=== PATIENT | male | born 1985 | race Caucasian/White ===

== ENCOUNTER → 2017-02-25 | Outpatient (REF) | payer BC ==
[2017-02-25 11:37] LABS: MEAN CORPUSCULAR HEMOGLOBIN 28.8 pg (27.0-33.0); MEAN CORPUSCULAR HGB CONC 34.1 g/dl (32.0-36.5); MEAN CORPUSCULAR VOLUME 84.5 fl (80.0-96.0); RED CELL DISTRIBUTION WIDTH 12.3 % (11.5-14.5); WHITE BLOOD COUNT 5.5 K/mm3 (4.0-10.0)
[2017-02-25 11:49] LABS: ALBUMIN 3.7 GM/DL (3.2-5.2); ALBUMIN/GLOBULIN RATIO 1.19 (1.00-1.93); ALKALINE PHOSPHATASE 118 U/L (45-117); ALT/SGPT 23 U/L (12-78); ANION GAP 6 MEQ/L (8-16); AST/SGOT 16 U/L (15-37); BILIRUBIN,TOTAL 0.5 MG/DL (0.2-1.0); BLOOD UREA NITROGEN 18 MG/DL (7-18); CALCIUM LEVEL 8.8 MG/DL (8.5-10.1); CARBON DIOXIDE LEVEL 25 MEQ/L (21-32); CHLORIDE LEVEL 108 MEQ/L (98-107); CREATININE FOR GFR 0.86 MG/DL (0.70-1.30); FREE T4 1.19 NG/DL (0.76-1.46); GLOMERULAR FILTRATION RATE > 60.0 (>60); GLUCOSE, FASTING 97 MG/DL (70-105); POTASSIUM SERUM 4.4 MEQ/L (3.5-5.1); SODIUM LEVEL 139 MEQ/L (136-145); TOTAL PROTEIN 6.8 GM/DL (6.4-8.2)
== END ==
LOC: M SFHCLERA 08:33
PROVIDERS: ATTEND Family Medicine
DX: R19.7 Diarrhea, unspecified (principal)

== ENCOUNTER 2019-04-17 08:58 | Inpatient (IN) | payer OTHER, BC ==
[~2019-04-17] VITALS: Ht 182.9 cm; Wt 88.6 kg
[2019-04-17] MEDS ORDERED: MULTIVITAMINS/MINERALS THERAP 1 TAB PO SCH (09:00)
[2019-04-17] MEDS ORDERED: FOLIC ACID 1 MG TAB PO SCH (09:00)
[2019-04-17] MEDS ORDERED: ADACEL/BOOSTRIX VACCINE (DIPHTH/PERTUSS/ACELL/TETANUS)0.5ML SYR (90715) IM ONE (09:30)
[2019-04-17] MEDS ORDERED: ONDANSETRON 4MG/2ML VIAL (J2405) IV ONE (09:30)
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
[2019-04-17] MEDS: MORPHINE 4 MG/ML 1ML VIAL/SYRINGE (J2270) IV PRN ×2 (09:59→11:28)
[2019-04-17 10:05] LABS: BASO % 0.1 % (0.0-1.0); EOS % 0.1 % (0.0-3.0); HEMATOCRIT 42.3 % (42.0-52.0); HEMOGLOBIN 14.4 g/dl (13.5-17.5); LYMPH # 0.9 10^3/uL (1.5-5.0); LYMPH % 6.4 % (24.0-44.0); MEAN CORPUSCULAR HEMOGLOBIN 27.9 pg (27.0-33.0); MONO # 0.6 10^3/uL (0.0-0.8); MONO % 3.8 % (0.0-5.0); NEUTROPHILS # 13.1 10^3/uL (1.5-8.5); NEUTROPHILS % 89.1 % (36.0-66.0); PLATELET COUNT, AUTOMATED 315 10^3/uL (150-450); RED BLOOD COUNT 5.16 10^6/uL (4.30-6.10); WHITE BLOOD COUNT 14.7 10^3/uL (4.0-10.0)
[2019-04-17] MEDS ORDERED: NS 1,000 ML IV ONE (10:15)
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
[2019-04-17 11:00] LABS: BLOOD UREA NITROGEN 8 MG/DL (7-18); CALCIUM LEVEL 8.3 MG/DL (8.5-10.1); CARBON DIOXIDE LEVEL 22 MEQ/L (21-32); CHLORIDE LEVEL 104 MEQ/L (98-107); CPK CREATINE PHOSPHOKINASE 195 U/L (39-308); CREATININE FOR GFR 0.82 MG/DL (0.70-1.30); ETHYL ALCOHOL (ETHANOL) 0.169 % (0.000-0.010); GLOMERULAR FILTRATION RATE > 60.0 (>60); GLUCOSE, FASTING 89 MG/DL (70-100); POTASSIUM SERUM 4.3 MEQ/L (3.5-5.1); SODIUM LEVEL 136 MEQ/L (136-145)
[2019-04-17] MEDS ORDERED: LORazepam 2 MG TAB PO PRN (12:00)
[2019-04-17] MEDS ORDERED: THIAMINE 100 MG TAB PO SCH (13:00)
[2019-04-17] MEDS ORDERED: FLEET ENEMA PR PRN (14:15)
[2019-04-17] MEDS ORDERED: ONDANSETRON 4MG/2ML VIAL (J2405) IM PRN (14:15)
[2019-04-17] MEDS ORDERED: ACETAMINOPHEN TAB 650MG DOSE (2X325MG) PO PRN (14:15)
[2019-04-17] MEDS: MORPHINE 4 MG/ML 1ML VIAL/SYRINGE (J2270) IM PRN (14:18)
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
[2019-04-17 15:47] VITALS: BP 133/76
[2019-04-17] MEDS: oxyCODONE 5MG TAB PO PRN (16:22)
[2019-04-17] MEDS: NS 1,000 ML IV SCH ×2 (16:38→21:10)
[2019-04-17 17:25] LABS: HEMATOCRIT 39.4 % (42.0-52.0); HEMOGLOBIN 13.7 g/dl (13.5-17.5); MEAN CORPUSCULAR HEMOGLOBIN 28.4 pg (27.0-33.0); MEAN CORPUSCULAR HGB CONC 34.8 g/dl (32.0-36.5); MEAN CORPUSCULAR VOLUME 81.7 fl (80.0-96.0); PLATELET COUNT, AUTOMATED 243 10^3/uL (150-450); RED BLOOD COUNT 4.82 10^6/uL (4.30-6.10)
[2019-04-17 17:41] LABS: INR 0.99; PROTHROMBIN TIME 12.8 SECONDS (11.8-14.0)
[2019-04-17 17:50] LABS: BLOOD UREA NITROGEN 8 MG/DL (7-18); CALCIUM LEVEL 8.1 MG/DL (8.5-10.1); CARBON DIOXIDE LEVEL 19 MEQ/L (21-32); CHLORIDE LEVEL 109 MEQ/L (98-107); CREATININE FOR GFR 0.76 MG/DL (0.70-1.30); GLOMERULAR FILTRATION RATE > 60.0 (>60); GLUCOSE, FASTING 97 MG/DL (70-100); POTASSIUM SERUM 4.6 MEQ/L (3.5-5.1); SODIUM LEVEL 138 MEQ/L (136-145)
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
[2019-04-17 22:00] VITALS: BP 134/81
[2019-04-18] MEDS: oxyCODONE 5MG TAB PO PRN ×2 (00:07→09:57)
[2019-04-18] MEDS: MORPHINE 4 MG/ML 1ML VIAL/SYRINGE (J2270) IM PRN ×2 (05:08→07:38)
[2019-04-18] MEDS: NS 1,000 ML IV SCH (05:08)
[2019-04-18 06:00] VITALS: BP 132/81
[2019-04-18 06:40] LABS: HEMATOCRIT 40.2 % (42.0-52.0); HEMOGLOBIN 13.7 g/dl (13.5-17.5); MEAN CORPUSCULAR HEMOGLOBIN 29.1 pg (27.0-33.0); MEAN CORPUSCULAR HGB CONC 34.1 g/dl (32.0-36.5); MEAN CORPUSCULAR VOLUME 85.4 fl (80.0-96.0); PLATELET COUNT, AUTOMATED 253 10^3/uL (150-450); RED BLOOD COUNT 4.71 10^6/uL (4.30-6.10); WHITE BLOOD COUNT 11.3 10^3/uL (4.0-10.0)
--- NOTE | 2019-04-18 06:40 | ECGEPIP ---
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
[2019-04-18] MEDS ORDERED: MORPHINE 4 MG/ML 1ML VIAL/SYRINGE (J2270) IV PRN (07:45)
[2019-04-18] MEDS ORDERED: PROPOFOL 200 MG/20 ML VIAL As Ordered ONE (11:41)
[2019-04-18] MEDS ORDERED: LIDOCAINE 2% INJ 100 MG/5 ML SDV (FOR ANES.) As Ordered ONE (11:42)
[2019-04-18] MEDS ORDERED: dexameTHASONE 4 MG/ML 1ML VIAL (J1100) As Ordered ONE (11:42)
[2019-04-18] MEDS ORDERED: ONDANSETRON 4MG/2ML VIAL (J2405) As Ordered ONE (11:42)
[2019-04-18] MEDS ORDERED: MIDAZOLAM INJ 2 MG/2 ML VIAL (J2250) As Ordered ONE (12:52)
[2019-04-18] MEDS ORDERED: fentaNYL 100 MCG/2 ML INJECTION (J3010) As Ordered ONE ×3 (12:52→15:57)
[2019-04-18] MEDS: MIDAZOLAM INJ 2 MG/2 ML VIAL (J2250) IV SCH ×2 (13:10→13:20)
[2019-04-18] MEDS: fentaNYL 100 MCG/2 ML INJECTION (J3010) IV SCH ×2 (13:10→13:20)
[2019-04-18] MEDS ORDERED: ROPIvacaine 0.5% 30 ML INJECTION (J2795 PER 1MG) ONE (14:36)
[2019-04-18] MEDS ORDERED: dexameTHASONE 10 MG/1 ML VIAL PRES.FREE (J1100) ONE (14:36)
[2019-04-18] MEDS ORDERED: LIDOCAINE 1% MDV 20ML VIAL ONE (14:36)
[2019-04-18] MEDS ORDERED: BUPIVACAINE/EPIN 0.25% 30 ML VIAL As Ordered ONE (15:21)
[2019-04-18] MEDS ORDERED: ceFAZolin 2 GM/D5W 50 ML IV BAG (J0690 PER 500MG) As Ordered ONE ×2 (16:00→17:03)
[2019-04-18] MEDS ORDERED: ROCURONIUM BROMIDE 50 MG/5 ML VIAL As Ordered ONE ×2 (16:21→16:22)
[2019-04-18] MEDS ORDERED: ACETAMINOPHEN 1000MG 100ML IV BTL (OFIRMEV) (J0131 PER 10MG) As Ordered ONE (17:08)
[2019-04-18] MEDS ORDERED: SUGAMMADEX SODIUM 500 MG/5 ML VIAL (BRIDION) As Ordered ONE (17:08)
[2019-04-18] MEDS ORDERED: KETOROLAC 60 MG/2 ML VIAL (J1885) As Ordered ONE (17:09)
[2019-04-18] MEDS ORDERED: LR 1,000 ML IV SCH (18:30)
[2019-04-18] MEDS ORDERED: MORPHINE 10 MG/ML 1ML VIAL (J2270) IV PRN (18:30)
[2019-04-18] MEDS ORDERED: fentaNYL 100 MCG/2 ML INJECTION (J3010) IV PRN (18:30)
[2019-04-18] MEDS ORDERED: MORPHINE 2 MG/ML 1ML SYRINGE (J2270) IV PRN (18:30)
[2019-04-18] MEDS ORDERED: ONDANSETRON 4MG/2ML VIAL (J2405) IV PRN (18:30)
[2019-04-18] MEDS ORDERED: oxyCODONE 5MG TAB PO PRN (18:30)
[2019-04-18 19:30] VITALS: BP 162/86
[2019-04-18 20:00] VITALS: BP 148/89
[2019-04-18 21:00] VITALS: BP 143/88
[2019-04-18 22:00] VITALS: BP 148/88
[2019-04-18 23:00] VITALS: BP 145/87
[2019-04-19] VITALS: BP 148/87
[2019-04-19] MEDS: ceFAZolin SOD 1 GM in D5W MINI-BAG PLUS 50 ML IV SCH ×2 (01:09→08:11)
[2019-04-19 06:00] VITALS: BP 141/74
[2019-04-19] MEDS ORDERED: OXYC-517 PO (06:35)
[2019-04-19] MEDS ORDERED: ceFAZolin SOD 1 GM in D5W MINI-BAG PLUS 50 ML IV ONE (12:00)
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
--- NOTE | 2019-04-19 18:45 | REP ---
Bilateral wrist views: Three views left two views right obtained portably in the OR. History: Open reduction internal fixation. Findings: A sequence of three last image hold fluoroscopically obtained spot radiographs of the forearm document a volar screw plate fixation device in the distal radius on one side and the distal radial diaphyseal screw plate fixation device on the other. No laterality markers are seen on the images. The overall fluoro time for both wrist fluoroscopy is 37 seconds. Electronically Signed by Demario Kohler MD 04/20/2019 09:08 A
== END 2019-04-19 12:40 | disposition home or self-care (01) | DRG 315 ==
LOC: EDBD 08:58 → M ED 08:58 → M ED INP 13:15 → M MS5PR 15:35
PROVIDERS: ADMIT Orthopaedic Surgery Hand Surgery; ATTEND Orthopaedic Surgery Hand Surgery
PROC: 0PSJ04Z Reposition Left Radius with Internal Fixation Device, Open Approach (ICD-10-PCS; principal; 2019-04-18 08:00)
PROC: 0PSH04Z Reposition Right Radius with Internal Fixation Device, Open Approach (ICD-10-PCS; 2019-04-18 08:00)
DX: S52.322A Displaced transverse fracture of shaft of left radius, initial encounter for closed fracture (principal); S52.531A Colles' fracture of right radius, initial encounter for closed fracture; F17.210 Nicotine dependence, cigarettes, uncomplicated; V48.5XXA Car driver injured in noncollision transport accident in traffic accident, initial encounter; F10.10 Alcohol abuse, uncomplicated; Y92.410 Unspecified street and highway as the place of occurrence of the external cause

== ENCOUNTER → 2019-07-19 | Outpatient (CLI) | payer BC ==
[~2019-07-19] MED LIST: OXYC-517 PO
== END ==
LOC: M OUTALCOH 08:25
PROVIDERS: ATTEND Psychiatry & Neurology Psychiatry
DX: Z03.89 Encounter for observation for other suspected diseases and conditions ruled out (principal)

== ENCOUNTER 2019-08-12 15:44 | Outpatient (RCR) | payer BC | END 2019-09-09 | LOC: M OUTALCOH 15:44 | PROVIDERS: ATTEND Psychiatry & Neurology Psychiatry | DX: Z03.89 Encounter for observation for other suspected diseases and conditions ruled out (principal); F17.200 Nicotine dependence, unspecified, uncomplicated ==

== ENCOUNTER 2020-02-19 00:10 | Emergency (ER) | payer BC ==
[~2020-02-19] VITALS: Ht 182.9 cm; Wt 103.0 kg
[2020-02-19] MEDS ORDERED: NALOXONE 2MG/2ML SYRINGE (J2310 PER 1MG) IV STA (00:22)
[2020-02-19 00:30] LABS: BASO # 0.1 10^3/uL (0.0-0.2); BASO % 0.7 % (0.0-1.0); EOS # 0.4 10^3/uL (0.0-0.5); EOS % 2.5 % (0.0-3.0); HEMATOCRIT 41.5 % (42.0-52.0); LYMPH # 5.8 10^3/uL (1.5-5.0); LYMPH % 41.8 % (24.0-44.0); MEAN CORPUSCULAR HEMOGLOBIN 28.3 pg (27.0-33.0); MEAN CORPUSCULAR HGB CONC 33.7 g/dl (32.0-36.5); MEAN CORPUSCULAR VOLUME 83.8 fl (80.0-96.0); MONO # 0.7 10^3/uL (0.0-0.8); MONO % 5.2 % (0.0-5.0); NEUTROPHILS # 6.8 10^3/uL (1.5-8.5); NEUTROPHILS % 49.1 % (36.0-66.0); PLATELET COUNT, AUTOMATED 295 10^3/uL (150-450); RED BLOOD COUNT 4.95 10^6/uL (4.30-6.10)
[2020-02-19 00:34] LABS: WHITE BLOOD COUNT 13.8 10^3/uL (4.0-10.0)
[2020-02-19 00:41] LABS: INR 1.02; PARTIAL THROMBOPLASTIN TIME 23.3 SECONDS (25.0-38.4); PROTHROMBIN TIME 13.1 SECONDS (11.8-14.0)
[2020-02-19] MEDS ORDERED: ceFAZolin SOD 1 GM in D5W MINI-BAG PLUS 50 ML IV ONE (00:45)
[2020-02-19] MEDS ORDERED: PROPOFOL 1,000 MG/100 ML VIAL As Ordered ONE ×2 (00:47→01:41)
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
[2020-02-19 00:57] LABS: BLOOD UREA NITROGEN 8 MG/DL (7-18); CALCIUM LEVEL 7.4 MG/DL (8.5-10.1); CARBON DIOXIDE LEVEL 20 MEQ/L (21-32); CHLORIDE LEVEL 105 MEQ/L (98-107); CREATININE FOR GFR 0.79 MG/DL (0.70-1.30); ETHYL ALCOHOL (ETHANOL) 0.284 % (0.000-0.010); GLOMERULAR FILTRATION RATE > 60.0 (>60); GLUCOSE, FASTING 126 MG/DL (70-100); POTASSIUM SERUM 3.2 MEQ/L (3.5-5.1); SODIUM LEVEL 137 MEQ/L (136-145)
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
[2020-02-19] MEDS ORDERED: SUCCINYLCHOLINE INJ 200 MG/10 ML VIAL (J0330) As Ordered ONE (01:04)
[2020-02-19] MEDS: propofoL 1,000 MG in IV 1 EA IV SCH ×2 (01:16→01:40)
[2020-02-19 01:44] VITALS: BP 120/59
[2020-02-19] MEDS ORDERED: SUCCINYLCHOLINE INJ 200 MG/10 ML VIAL (J0330) IV STA ×2 (02:13)
[2020-02-19] MEDS ORDERED: NS 1,000 ML IV ONE (02:15)
[2020-02-19] MEDS ORDERED: SUCCINYLCHOLINE INJ 200 MG/10 ML VIAL (J0330) IV ONE (02:15)
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
== END 2020-02-19 01:50 | disposition short-term general hospital (02) ==
LOC: EDBD 00:10 → M ED 00:10
DX: J96.90 Respiratory failure, unspecified, unspecified whether with hypoxia or hypercapnia (principal); S06.4X0A Epidural hemorrhage without loss of consciousness, initial encounter; S02.91XA Unspecified fracture of skull, initial encounter for closed fracture; S01.01XA Laceration without foreign body of scalp, initial encounter; Y04.8XXA Assault by other bodily force, initial encounter; Y92.89 Other specified places as the place of occurrence of the external cause
CPT/HCPCS: 12002; 70450; 71045; 72125; 80048; 85025; 85610; 85730; 96365; 96368; 96375; 99291; G0480; J0330; J0690

== ENCOUNTER 2020-02-23 08:48 | Inpatient (IN) | payer BC ==
[~2020-02-23] VITALS: Ht 182.9 cm; Wt 92.7 kg
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
[2020-02-23] MEDS ORDERED: traZODone 25MG PER 1/2 TABLET PO PRN (13:00)
[2020-02-23] MEDS ORDERED: oxyCODONE 5MG TAB PO PRN (13:00)
[2020-02-23] MEDS ORDERED: ONDANSETRON 4 MG TAB PO PRN (13:00)
[2020-02-23 13:10] VITALS: BP 143/82
[2020-02-23] MEDS ORDERED: OXYC-517 PO (13:50)
[2020-02-23] MEDS ORDERED: PROT40IN4 IV (13:50)
[2020-02-23] MEDS ORDERED: [UNRECOGNIZED DRUG - CODE] SC (13:50)
[2020-02-23] MEDS ORDERED: MIRA3350 PO (13:50)
[2020-02-23] MEDS ORDERED: BACIOIN5 TOP (13:50)
[2020-02-23] MEDS ORDERED: ACET-908 PO (13:50)
[2020-02-23] MEDS ORDERED: GNP8.6TA PO (13:50)
[2020-02-23] MEDS: ACETAMINOPHEN 500 MG TAB PO SCH ×2 (14:00→22:03)
[2020-02-23] MEDS: IPRATROPIUM 0.5MG/ALBUTEROL 2.5MG INH SOL UD 3ML (DUONEB) NEB SCH ×2 (15:17→19:38)
[2020-02-23] MEDS: PANTOPRAZOLE 40MG TAB (PROTONIX) PO SCH (17:11)
[2020-02-23] MEDS: guaiFENesin 200 MG TAB PO SCH ×2 (17:21→22:03)
[2020-02-23] MEDS: PROPRANOLOL 10 MG TAB PO SCH ×2 (17:21→22:03)
[2020-02-23 20:40] VITALS: BP 129/72
[2020-02-23] MEDS: DOCUSATE SODIUM 100 MG CAP PO SCH (21:00)
[2020-02-23] MEDS: SENNA 8.6 MG TAB (SENOKOT) PO SCH (21:00)
[2020-02-23] MEDS: HEPARIN SOD (PORCINE) 5000UNITS/ML VIAL (J1644 PER 1000UNITS) SC SCH (22:04)
[2020-02-24 06:00] VITALS: BP 132/72
[2020-02-24] MEDS: ACETAMINOPHEN 500 MG TAB PO SCH ×3 (06:31→22:00)
[2020-02-24] MEDS: PROPRANOLOL 10 MG TAB PO SCH ×4 (06:33→22:00)
[2020-02-24] MEDS: IPRATROPIUM 0.5MG/ALBUTEROL 2.5MG INH SOL UD 3ML (DUONEB) NEB SCH ×3 (07:14→19:26)
[2020-02-24 07:48] LABS: BASO % 0.3 % (0.0-1.0); EOS # 0.2 10^3/uL (0.0-0.5); EOS % 2.1 % (0.0-3.0); HEMATOCRIT 25.5 % (42.0-52.0); HEMOGLOBIN 8.6 g/dl (13.5-17.5); LYMPH # 1.1 10^3/uL (1.5-5.0); LYMPH % 12.3 % (24.0-44.0); MEAN CORPUSCULAR HEMOGLOBIN 28.7 pg (27.0-33.0); MEAN CORPUSCULAR HGB CONC 33.7 g/dl (32.0-36.5); MONO # 0.9 10^3/uL (0.0-0.8); MONO % 9.5 % (0.0-5.0); NEUTROPHILS # 6.6 10^3/uL (1.5-8.5); PLATELET COUNT, AUTOMATED 221 10^3/uL (150-450); WHITE BLOOD COUNT 9.1 10^3/uL (4.0-10.0)
[2020-02-24 08:11] LABS: ALBUMIN 2.4 GM/DL (3.2-5.2); ALT/SGPT 20 U/L (12-78); BILIRUBIN,TOTAL 0.5 MG/DL (0.2-1.0); BLOOD UREA NITROGEN 7 MG/DL (7-18); CALCIUM LEVEL 8.1 MG/DL (8.5-10.1); CARBON DIOXIDE LEVEL 26 MEQ/L (21-32); CHLORIDE LEVEL 106 MEQ/L (98-107); CREATININE FOR GFR 0.55 MG/DL (0.70-1.30); GLOMERULAR FILTRATION RATE > 60.0 (>60); GLUCOSE, FASTING 145 MG/DL (70-100); POTASSIUM SERUM 3.3 MEQ/L (3.5-5.1); SODIUM LEVEL 143 MEQ/L (136-145); TOTAL PROTEIN 5.3 GM/DL (6.4-8.2)
[2020-02-24] MEDS: guaiFENesin 200 MG TAB PO SCH ×3 (09:00→20:48)
[2020-02-24] MEDS: PANTOPRAZOLE 40MG TAB (PROTONIX) PO SCH (09:00)
[2020-02-24] MEDS: DOCUSATE SODIUM 100 MG CAP PO SCH ×2 (09:00→20:50)
[2020-02-24] MEDS ORDERED: POTASSIUM CHLORIDE 10 MEQ SR TABLET PO ONE (10:15)
[2020-02-24] MEDS: HEPARIN SOD (PORCINE) 5000UNITS/ML VIAL (J1644 PER 1000UNITS) SC SCH ×2 (10:25→20:47)
[2020-02-24 14:00] VITALS: BP 135/99
[2020-02-24] MEDS: BACITRACIN OINTMENT 30GM TUBE TOP SCH (14:51)
[2020-02-24 17:06] VITALS: BP 135/99
[2020-02-24 20:00] VITALS: BP 129/67
[2020-02-24] MEDS: SENNA 8.6 MG TAB (SENOKOT) PO SCH (20:49)
[2020-02-25 06:00] VITALS: BP 147/89
[2020-02-25] MEDS: ACETAMINOPHEN 500 MG TAB PO SCH ×3 (06:08→21:02)
[2020-02-25] MEDS: PROPRANOLOL 10 MG TAB PO SCH ×3 (06:08→21:04)
[2020-02-25 06:58] LABS: BASO % 0.4 % (0.0-1.0); EOS # 0.2 10^3/uL (0.0-0.5); EOS % 1.6 % (0.0-3.0); HEMATOCRIT 26.8 % (42.0-52.0); LYMPH # 1.5 10^3/uL (1.5-5.0); LYMPH % 15.1 % (24.0-44.0); MEAN CORPUSCULAR HEMOGLOBIN 28.8 pg (27.0-33.0); MEAN CORPUSCULAR HGB CONC 33.6 g/dl (32.0-36.5); MEAN CORPUSCULAR VOLUME 85.6 fl (80.0-96.0); MONO # 0.9 10^3/uL (0.0-0.8); MONO % 8.5 % (0.0-5.0); NEUTROPHILS # 7.4 10^3/uL (1.5-8.5); NEUTROPHILS % 72.2 % (36.0-66.0); PLATELET COUNT, AUTOMATED 260 10^3/uL (150-450); RED BLOOD COUNT 3.13 10^6/uL (4.30-6.10); WHITE BLOOD COUNT 10.2 10^3/uL (4.0-10.0)
[2020-02-25 07:16] LABS: BLOOD UREA NITROGEN 7 MG/DL (7-18); CARBON DIOXIDE LEVEL 26 MEQ/L (21-32); CHLORIDE LEVEL 106 MEQ/L (98-107); CREATININE FOR GFR 0.54 MG/DL (0.70-1.30); GLOMERULAR FILTRATION RATE > 60.0 (>60); GLUCOSE, FASTING 103 MG/DL (70-100); POTASSIUM SERUM 3.3 MEQ/L (3.5-5.1); SODIUM LEVEL 142 MEQ/L (136-145)
[2020-02-25] MEDS: PANTOPRAZOLE 40MG TAB (PROTONIX) PO SCH (08:26)
[2020-02-25] MEDS: HEPARIN SOD (PORCINE) 5000UNITS/ML VIAL (J1644 PER 1000UNITS) SC SCH ×2 (08:26→21:01)
[2020-02-25] MEDS: DOCUSATE SODIUM 100 MG CAP PO SCH ×2 (08:26→21:00)
[2020-02-25] MEDS: BACITRACIN OINTMENT 30GM TUBE TOP SCH (08:27)
[2020-02-25] MEDS: guaiFENesin 200 MG TAB PO SCH ×3 (08:27→21:02)
[2020-02-25] MEDS: IPRATROPIUM 0.5MG/ALBUTEROL 2.5MG INH SOL UD 3ML (DUONEB) NEB SCH ×3 (09:12→19:34)
[2020-02-25 14:00] VITALS: BP 132/67
[2020-02-25] MEDS ORDERED: POTASSIUM CHLORIDE 10% LIQ 20 MEQ/15 ML UDC PO ONE (17:00)
[2020-02-25 20:00] VITALS: BP 141/85
[2020-02-25] MEDS: SENNA 8.6 MG TAB (SENOKOT) PO SCH (21:00)
[2020-02-25] MEDS: CARBAMIDE PEROXIDE 6.5% OTIC SOLN 15ML AD SCH (21:01)
[2020-02-26 06:00] VITALS: BP 138/82
[2020-02-26] MEDS: PROPRANOLOL 10 MG TAB PO SCH ×3 (06:02→21:05)
[2020-02-26] MEDS: ACETAMINOPHEN 500 MG TAB PO SCH ×3 (06:02→21:04)
[2020-02-26] MEDS: DOCUSATE SODIUM 100 MG CAP PO SCH ×2 (07:34→21:00)
[2020-02-26] MEDS: guaiFENesin 200 MG TAB PO SCH ×3 (07:35→21:05)
[2020-02-26] MEDS: PANTOPRAZOLE 40MG TAB (PROTONIX) PO SCH (07:38)
[2020-02-26] MEDS: CARBAMIDE PEROXIDE 6.5% OTIC SOLN 15ML AD SCH ×3 (07:38→21:04)
[2020-02-26] MEDS: BACITRACIN OINTMENT 30GM TUBE TOP SCH (07:38)
[2020-02-26] MEDS: HEPARIN SOD (PORCINE) 5000UNITS/ML VIAL (J1644 PER 1000UNITS) SC SCH ×2 (07:38→21:04)
[2020-02-26] MEDS: IPRATROPIUM 0.5MG/ALBUTEROL 2.5MG INH SOL UD 3ML (DUONEB) NEB SCH ×3 (07:44→16:13)
[2020-02-26 14:00] VITALS: BP 140/86
[2020-02-26 19:52] VITALS: BP 154/81
[2020-02-26] MEDS: SENNA 8.6 MG TAB (SENOKOT) PO SCH (21:00)
[2020-02-27 05:27] VITALS: BP 146/92
[2020-02-27] MEDS: ACETAMINOPHEN 500 MG TAB PO SCH ×2 (05:28→15:24)
[2020-02-27] MEDS: PROPRANOLOL 10 MG TAB PO SCH ×2 (05:28→14:00)
[2020-02-27] MEDS: IPRATROPIUM 0.5MG/ALBUTEROL 2.5MG INH SOL UD 3ML (DUONEB) NEB SCH ×2 (08:30→13:09)
[2020-02-27 08:42] LABS: BASO % 0.4 % (0.0-1.0); EOS # 0.3 10^3/uL (0.0-0.5); EOS % 3.8 % (0.0-3.0); HEMATOCRIT 28.6 % (42.0-52.0); HEMOGLOBIN 9.6 g/dl (13.5-17.5); LYMPH # 1.4 10^3/uL (1.5-5.0); LYMPH % 17.3 % (24.0-44.0); MEAN CORPUSCULAR HGB CONC 33.6 g/dl (32.0-36.5); MEAN CORPUSCULAR VOLUME 86.4 fl (80.0-96.0); MONO # 0.8 10^3/uL (0.0-0.8); MONO % 9.4 % (0.0-5.0); NEUTROPHILS # 5.6 10^3/uL (1.5-8.5); NEUTROPHILS % 67.8 % (36.0-66.0); PLATELET COUNT, AUTOMATED 377 10^3/uL (150-450); RED BLOOD COUNT 3.31 10^6/uL (4.30-6.10); WHITE BLOOD COUNT 8.2 10^3/uL (4.0-10.0)
[2020-02-27] MEDS: HEPARIN SOD (PORCINE) 5000UNITS/ML VIAL (J1644 PER 1000UNITS) SC SCH (08:55)
[2020-02-27] MEDS: PANTOPRAZOLE 40MG TAB (PROTONIX) PO SCH (08:56)
[2020-02-27] MEDS: CARBAMIDE PEROXIDE 6.5% OTIC SOLN 15ML AD SCH ×2 (08:56→16:00)
[2020-02-27] MEDS: guaiFENesin 200 MG TAB PO SCH ×2 (08:56→15:24)
[2020-02-27] MEDS: DOCUSATE SODIUM 100 MG CAP PO SCH (08:57)
[2020-02-27] MEDS: BACITRACIN OINTMENT 30GM TUBE TOP SCH (08:57)
[2020-02-27 09:07] LABS: BLOOD UREA NITROGEN 7 MG/DL (7-18); CALCIUM LEVEL 7.9 MG/DL (8.5-10.1); CARBON DIOXIDE LEVEL 27 MEQ/L (21-32); CHLORIDE LEVEL 107 MEQ/L (98-107); CREATININE FOR GFR 0.77 MG/DL (0.70-1.30); GLOMERULAR FILTRATION RATE > 60.0 (>60); GLUCOSE, FASTING 127 MG/DL (70-100); POTASSIUM SERUM 3.8 MEQ/L (3.5-5.1); SODIUM LEVEL 141 MEQ/L (136-145)
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
[2020-02-27] MEDS ORDERED: BACI50OI TOP (12:24)
[2020-02-27] MEDS ORDERED: CARBOT AD (12:24)
[2020-02-27 14:00] VITALS: BP_SYST 130; BP_SYST 146; BP_DIAS 75; BP_DIAS 92
== END 2020-02-27 17:05 | disposition home or self-care (01) | DRG 862 ==
LOC: M PM&R 12:36
PROVIDERS: ADMIT Physical Medicine & Rehabilitation; ATTEND Physical Medicine & Rehabilitation
DX: S02.19XD Other fracture of base of skull, subsequent encounter for fracture with routine healing (principal); F10.10 Alcohol abuse, uncomplicated; Y09 Assault by unspecified means; Y92.9 Unspecified place or not applicable; R53.1 Weakness; F17.200 Nicotine dependence, unspecified, uncomplicated; R26.89 Other abnormalities of gait and mobility; G47.00 Insomnia, unspecified; Z79.899 Other long term (current) drug therapy

== ENCOUNTER 2020-03-07 09:30 | Outpatient (RCR) | payer BC ==
[~2020-03-07 09:30] MED LIST changes: +ACET-908 PO; +BACI50OI TOP; +BACIOIN5 TOP; +CARBOT AD; +GNP8.6TA PO; +MIRA3350 PO; +PROT40IN4 IV; +[UNRECOGNIZED DRUG - CODE] SC
== END 2020-03-09 ==
LOC: M PT 09:30
PROVIDERS: ATTEND Physical Medicine & Rehabilitation
DX: S06.2X9D Diffuse traumatic brain injury with loss of consciousness of unspecified duration, subsequent encounter (principal); W18.30XD Fall on same level, unspecified, subsequent encounter; Y92.9 Unspecified place or not applicable

== ENCOUNTER 2020-03-16 08:45 | Outpatient (RCR) | payer BC | END 2020-04-09 | LOC: M PT 08:45 | PROVIDERS: ATTEND Physical Medicine & Rehabilitation | DX: S06.2X9D Diffuse traumatic brain injury with loss of consciousness of unspecified duration, subsequent encounter (principal); X58.XXXD Exposure to other specified factors, subsequent encounter; Y92.9 Unspecified place or not applicable ==

== ENCOUNTER → 2020-05-09 | Outpatient (CLI) | payer BC ==
[2020-05-09 09:39] LABS: ALBUMIN 3.4 GM/DL (3.2-5.2); ALT/SGPT 34 U/L (12-78); BILIRUBIN,TOTAL 0.3 MG/DL (0.2-1.0); BLOOD UREA NITROGEN 18 MG/DL (7-18); CALCIUM LEVEL 8.9 MG/DL (8.5-10.1); CARBON DIOXIDE LEVEL 27 MEQ/L (21-32); CHLORIDE LEVEL 111 MEQ/L (98-107); CHOLESTEROL LEVEL 156 MG/DL (<200); CHOLESTEROL RISK RATIO 3.319 (<5); CREATININE FOR GFR 1.04 MG/DL (0.70-1.30); GLOMERULAR FILTRATION RATE > 60.0 (>60); GLUCOSE, FASTING 98 MG/DL (70-100); HDL CHOLESTEROL 47 MG/DL (>40); LDL CHOLESTEROL 92 MG/DL (<100); NON-HDL-C 109 MG/DL; POTASSIUM SERUM 4.6 MEQ/L (3.5-5.1); SODIUM LEVEL 142 MEQ/L (136-145); TOTAL PROTEIN 6.9 GM/DL (6.4-8.2); TRIGLYCERIDES LEVEL 84 MG/DL (<150)
[2020-05-09 09:56] LABS: HEMOGLOBIN A1c 5.1 %
[2020-05-09 13:18] LABS: HEPATITIS C VIRUS ABY INDEX 0.2 INDEX (<0.8); HIV 1&2 SCREEN CENTAUR NEGATIVE (NEGATIVE)
== END ==
LOC: M LAB 08:08
DX: E66.3 Overweight (principal)

== ENCOUNTER 2020-09-10 21:16 | Emergency (ER) | payer BC ==
[~2020-09-10] VITALS: Ht 182.9 cm; Wt 98.6 kg
[2020-09-10 21:18] VITALS: BP 132/75
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
--- OUTSIDE RECORDS SUMMARY | 2020-09-10 21:25 | CCD ---
Author Author [facility] Organization [facility] Address Unknown Phone Unavailable Care Team Providers Care Worm Packer Name Role Phone ValerieKenny kumar Unavailable PROBLEMS Type Condition ICD9-CM Code SDP89-VO Code Onset Dates Condition S tatus SNOMED Code Notes Problem Nondependent tobacco use disorder 305.1 Active 523146444 Problem Paroxysmal atrial fibrillation I48.0 Active 2 36758336 Problem Other obesity due to excess calories E66.09 Act palmer 261987533 Problem Body mass index [BMI] 31.0-31.9, adult Z68.31 A ctive 935834116 Problem History of alcohol abuse F10.11 Active 0123553 05 Problem Atrial fibrillation with RVR I48.91 Active 120 667332536518 Problem Current smoker F17.200 Active 81884300 ALLERGIES No Known Allergies ENCOUNTERS from 1987 to 2020-09-03 Encounter Location Date Provider Diagnosis [address] [address] Aug, Kenny Padilla IMMUNIZATIONS Vaccine Route Administration Date Status HPV9 0.5mL (Gardasil 9) IM Intramuscular Jun 21, 2020 Adminis tered SOCIAL HISTORY Tobacco Use: Social History Observation Description Date Details (start date - stop date) Current Smoker Sex Assigned At : Social History Observation Description Sex Assigned At Unknown Education: Question Answer Notes Level of Education: High School Language: Question Answer Notes Languages spoken: Vietnamese Mormonism: Question Answer Notes Mormonism 99 Other No scientologist beliefs that would impact health care. Tobacco Use: Question Answer Notes Are you a: current smoker Patient counseled on the dangers of tobacco use and urged to quit: 02/25/2017 How many cigarettes a day do you smoke? 21-30 Are you interested in quitting? Thinking about quitting Counseled the patient on smoking cessation, education provid ed 02/25/2017 REASON FOR REFERRAL No Information VITAL SIGNS No information MEDICATIONS No Information PROCEDURES No Information RESULTS No Results REASON FOR VISIT no show MEDICAL (GENERAL) HISTORY Type Description Date Surgical History No Surgical history information Hospitalization History left arm fx x2 Goals Section No Information Health Concerns No Information MEDICAL EQUIPMENT No Information MENTAL STATUS No Information FUNCTIONAL STATUS No Information ASSESSMENTS No Information PLAN OF TREATMENT No Information Insurance Providers Payer Name Payer Address Payer Phone Insured Name Patient Relati onship to Insured Coverage Start Date Coverage End Date [employer] OF [facility] [id number] [facility] [id number] [address] LUBIN self
--- OUTSIDE RECORDS SUMMARY | 2020-09-10 21:26 | CCD ---
Author Author [facility] Organization [facility] Address Unknown Phone Unavailable Care Team Providers Care Chamber Walker Name Role Phone Carla Redding MD Unavailable Unavailabl e MiladisCarla MD Unavailable Unavailabl e Miladis, Carla Armstrong MD Unavailable Unavailabl e MiladisCarla MD Unavailable Unavailabl e MiladisCarla MD Unavailable Unavailabl e MiladisCarla MD Unavailable Unavailabl e MiladisCarla MD Unavailable Unavailabl e MiladisCarla MD Unavailable Unavailabl e MiladisCarla MD Unavailable Unavailabl e MiladisCarla MD Unavailable Unavailabl e MiladisCarla MD Unavailable Unavailabl e MiladisCarla MD Unavailable Unavailabl e MiladisCarla MD Unavailable Unavailabl e MiladisCarla MD Unavailable Unavailabl e MiladisCarla MD Unavailable Unavailabl e Miladis, Aguirre Osmin Gene MD Unavailable Unavailabl e Miladis, Aguirre Osmin Gene MD Unavailable Unavailabl e Miladis, Aguirre Osmin Gene MD Unavailable Unavailabl e Miladis, Aguirre Osmin Gene MD Unavailable Unavailabl e Miladis, Aguirre Osmin Gene MD Unavailable Unavailabl e Miladis, Aguirre Osmin Gene MD Unavailable Unavailabl e Miladis, Aguirre Osmin Gene MD Unavailable Unavailabl e Miladis, Aguirre Osmin Gene MD Unavailable Unavailabl e Miladis, Aguirre Osmin Gene MD Unavailable Unavailabl e Miladis, Aguirre Osmin Gene MD Unavailable Unavailabl e Miladis, Aguirre Osmin Gene MD Unavailable Unavailabl e Miladis, Aguirre Osmin Gene MD Unavailable Unavailabl e Miladis, Aguirre Osmin Gene MD Unavailable Unavailabl e Miladis, Aguirre Osmin Gene MD Unavailable Unavailabl e ALIASES , DEFAULT / GENERIC / UNKNOWN PROVIDER * Unavailable Unavailable ALIASES , DEFAULT / GENERIC / UNKNOWN PROVIDER * Unavailable Unavailable ALIASES , DEFAULT / GENERIC / UNKNOWN PROVIDER * Unavailable Unavailable ALIASES , DEFAULT / GENERIC / UNKNOWN PROVIDER * Unavailable Unavailable ALIASES , DEFAULT / GENERIC / UNKNOWN PROVIDER * Unavailable Unavailable ALIASES , DEFAULT / GENERIC / UNKNOWN PROVIDER * Unavailable Unavailable ALIASES , DEFAULT / GENERIC / UNKNOWN PROVIDER * Unavailable Unavailable ALIASES , DEFAULT / GENERIC / UNKNOWN PROVIDER * Unavailable Unavailable ALIASES , DEFAULT / GENERIC / UNKNOWN PROVIDER * Unavailable Unavailable ALIASES , DEFAULT / GENERIC / UNKNOWN PROVIDER * Unavailable Unavailable ALIASES , DEFAULT / GENERIC / UNKNOWN PROVIDER * Unavailable Unavailable ALIASES , DEFAULT / GENERIC / UNKNOWN PROVIDER * Unavailable Unavailable ALIASES , DEFAULT / GENERIC / UNKNOWN PROVIDER * Unavailable Unavailable ALIASES , DEFAULT / GENERIC / UNKNOWN PROVIDER * Unavailable Unavailable ALIASES , DEFAULT / GENERIC / UNKNOWN PROVIDER * Unavailable Unavailable ALIASES , DEFAULT / GENERIC / UNKNOWN PROVIDER * Unavailable Unavailable ALIASES , DEFAULT / GENERIC / UNKNOWN PROVIDER * Unavailable Unavailable ALIASES , DEFAULT / GENERIC / UNKNOWN PROVIDER * Unavailable Unavailable ALIASES , DEFAULT / GENERIC / UNKNOWN PROVIDER * Unavailable Unavailable ALIASES , DEFAULT / GENERIC / UNKNOWN PROVIDER * Unavailable Unavailable ALIASES , DEFAULT / GENERIC / UNKNOWN PROVIDER * Unavailable Unavailable ALIASES , DEFAULT / GENERIC / UNKNOWN PROVIDER * Unavailable Unavailable ALIASES , DEFAULT / GENERIC / UNKNOWN PROVIDER * Unavailable Unavailable ALIASES , DEFAULT / GENERIC / UNKNOWN PROVIDER * Unavailable Unavailable ALIASES , DEFAULT / GENERIC / UNKNOWN PROVIDER * Unavailable Unavailable ALIASES , DEFAULT / GENERIC / UNKNOWN PROVIDER * Unavailable Unavailable ALIASES , DEFAULT / GENERIC / UNKNOWN PROVIDER * Unavailable Unavailable ALIASES , DEFAULT / GENERIC / UNKNOWN PROVIDER * Unavailable Unavailable ALIASES , DEFAULT / GENERIC / UNKNOWN PROVIDER * Unavailable Unavailable ALIASES , DEFAULT / GENERIC / UNKNOWN PROVIDER * Unavailable Unavailable ALIASES , DEFAULT / GENERIC / UNKNOWN PROVIDER * Unavailable Unavailable ALIASES , DEFAULT / GENERIC / UNKNOWN PROVIDER * Unavailable Unavailable ALIASES , DEFAULT / GENERIC / UNKNOWN PROVIDER * Unavailable Unavailable ALIASES , DEFAULT / GENERIC / UNKNOWN PROVIDER * Unavailable Unavailable ALIASES , DEFAULT / GENERIC / UNKNOWN PROVIDER * Unavailable Unavailable ALIASES , DEFAULT / GENERIC / UNKNOWN PROVIDER * Unavailable Unavailable ALIASES , DEFAULT / GENERIC / UNKNOWN PROVIDER * Unavailable Unavailable ALIASES , DEFAULT / GENERIC / UNKNOWN PROVIDER * Unavailable Unavailable ALIASES , DEFAULT / GENERIC / UNKNOWN PROVIDER * Unavailable Unavailable ALIASES , DEFAULT / GENERIC / UNKNOWN PROVIDER * Unavailable Unavailable ALIASES , DEFAULT / GENERIC / UNKNOWN PROVIDER * Unavailable Unavailable ALIASES , DEFAULT / GENERIC / UNKNOWN PROVIDER * Unavailable Unavailable ALIASES , DEFAULT / GENERIC / UNKNOWN PROVIDER * Unavailable Unavailable ALIASES , DEFAULT / GENERIC / UNKNOWN PROVIDER * Unavailable Unavailable ALIASES , DEFAULT / GENERIC / UNKNOWN PROVIDER * Unavailable Unavailable ALIASES , DEFAULT / GENERIC / UNKNOWN PROVIDER * Unavailable Unavailable Miguelina HAIDER Unavailable Unavailable Helen BUSH MD Unavailable Unavailable Helen BUSH MD Unavailable Unavailable Helen BUSH MD Unavailable Unavailable Helen BUSH MD Unavailable Unavailable Helen BUSH MD Unavailable Unavailable Helen BUSH MD Unavailable Unavailable Helen BUSH MD Unavailable Unavailable Helen BUSH MD Unavailable Unavailable Helen BUSH MD Unavailable Unavailable Helen BUSH MD Unavailable Unavailable Helen BUSH MD Unavailable Unavailable Helen BUSH MD Unavailable Unavailable Helen BUSH MD Unavailable Unavailable NON, PHYSICIAN STAFF Unavailable Unavailable Stuck, K Ni PA Unavailable Unavailable Stuck, K Ni PA Unavailable Unavailable Stuck, K Ni PA Unavailable Unavailable Stuck, K Ni PA Unavailable Unavailable Stuck, K Ni PA Unavailable Unavailable Stuck, K Ni PA Unavailable Unavailable Stuck, K Ni PA Unavailable Unavailable Stuck, K Ni PA Unavailable Unavailable Stuck, K Ni PA Unavailable Unavailable Stuck, K Ni PA Unavailable Unavailable Stuck, K Ni PA Unavailable Unavailable Stuck, K Ni PA Unavailable Unavailable Stuck, K Ni PA Unavailable Unavailable Stuck, K Ni PA Unavailable Unavailable Stuck, K Ni PA Unavailable Unavailable Stuck, K Ni PA Unavailable Unavailable Stuck, K Ni PA Unavailable Unavailable Stuck, K Ni PA Unavailable Unavailable Stuck, K Ni PA Unavailable Unavailable Stuck, K Ni PA Unavailable Unavailable Stuck, K Ni PA Unavailable Unavailable Stuck, K Ni PA Unavailable Unavailable Stuck, K Ni PA Unavailable Unavailable Stuck, K Ni PA Unavailable Unavailable Stuck, K Ni PA Unavailable Unavailable Stuck, K Ni PA Unavailable Unavailable Stuck, K Ni PA Unavailable Unavailable Stuck, K Ni PA Unavailable Unavailable Stuck, K Ni PA Unavailable Unavailable Stuck, K Ni PA Unavailable Unavailable Stuck, K Ni PA Unavailable Unavailable Stuck, K Ni PA Unavailable Unavailable Stuck, K Ni PA Unavailable Unavailable Stuck, K Ni PA Unavailable Unavailable Stuck, K Ni PA Unavailable Unavailable Stuck, K Ni PA Unavailable Unavailable Stuck, K Ni PA Unavailable Unavailable Stuck, K Ni PA Unavailable Unavailable Stuck, K Ni PA Unavailable Unavailable Stuck, K Ni PA Unavailable Unavailable Stuck, K Ni PA Unavailable Unavailable Stevens, M Demario PA Unavailable Unavailable Stevens, M Demario PA Unavailable Unavailable Stevens, M Demario PA Unavailable Unavailable Stevens, M Demario PA Unavailable Unavailable Stevens, M Demario PA Unavailable Unavailable Stevens, M Demario PA Unavailable Unavailable Stevens, M Demario PA Unavailable Unavailable Stevens, M Demario PA Unavailable Unavailable Stevens, M Demario PA Unavailable Unavailable Stevens, M Demario PA Unavailable Unavailable Stevens, M Demario PA Unavailable Unavailable Stevens, M Demario PA Unavailable Unavailable Stevens, M Demario PA Unavailable Unavailable Stevens, M Demario PA Unavailable Unavailable Stevens, M Demario PA Unavailable Unavailable Stevens, M Demario PA Unavailable Unavailable Stevens, M Demario PA Unavailable Unavailable Stevens, M Demario PA Unavailable Unavailable Stevens, M Demario PA Unavailable Unavailable Stevens, M Demario PA Unavailable Unavailable Stevens, M Demario PA Unavailable Unavailable Stevens, M Demario PA Unavailable Unavailable Stevens, M Demario PA Unavailable Unavailable Stevens, M Demario PA Unavailable Unavailable Stevens, M Demario PA Unavailable Unavailable Stevens, M Demario PA Unavailable Unavailable Stevens, M Demario PA Unavailable Unavailable Stevens, M Demario PA Unavailable Unavailable Stevens, M Demario PA Unavailable Unavailable Stevens, M Demario PA Unavailable Unavailable Stevens, M Demario PA Unavailable Unavailable Stevens, M Demairo PA Unavailable Unavailable Stevens, M Demario PA Unavailable Unavailable Rodney M Demario PA Unavailable Unavailable Stevens, M Demario PA Unavailable Unavailable Stevens, M Demario PA Unavailable Unavailable Stevens, M Demario PA Unavailable Unavailable Stevens, M Demario PA Unavailable Unavailable Stevens, M Demario PA Unavailable Unavailable Stevens, M Demario PA Unavailable Unavailable Stevens, M Demario PA Unavailable Unavailable Stevens, M Demario PA Unavailable Unavailable Stevens, M Demario PA Unavailable Unavailable Stevens, M Demario PA Unavailable Unavailable Stevens, M Demario PA Unavailable Unavailable Stevens, M Demario PA Unavailable Unavailable Rodney M Demario PA Unavailable Unavailable Jesús COLBY, R Enzo Unavailable Jesús COLBY, R Enzo Unavailable Jesús COLBY, R Enzo Unavailable Jesús COLBY, R Enzo Unavailable Jesús COLBY, R Enzo Unavailable Jesús COLBY, R Enzo Unavailable Jesús COLBY, R Enzo Unavailable Jesús COLBY, R Enzo Unavailable Jesús COLBY, R Enzo Unavailable Jesús COLBY, R Enzo Unavailable Jesús COLBY, R Enzo Unavailable Jesús COLBY, R Enzo Unavailable Jesús COLBY, R Enzo Unavailable Jesús COLBY, R Enzo Unavailable Jesús COLBY, R Enzo Unavailable Jesús COLBY, R Enzo Unavailable Jesús COLBY, R Enzo Unavailable Jesús COLBY, R Enzo Unavailable Jesús COLBY, R Enzo Unavailable Jesús COLBY, R Enzo Unavailable Jesús COLBY, R Enzo Unavailable Jesús COLBY, R Enzo Unavailable Jesús COLBY, R Enzo Unavailable Jesús COLBY, R Enzo Unavailable Jesús COLBY, R Enzo Unavailable Jesús COLBY, R Enzo Unavailable Jesús COLBY, R Enzo Unavailable Man, M Fatuma RN RESOURCE NURSE Unavailable Unavailable Man, M Fatuma RN RESOURCE NURSE Unavailable Unavailable Man, M Fatuma RN RESOURCE NURSE Unavailable Unavailable Man, M Fatuma RN RESOURCE NURSE Unavailable Unavailable Man, M Fatuma RN RESOURCE NURSE Unavailable Unavailable Man, M Fatuma RN RESOURCE NURSE Unavailable Unavailable Man, M Fatuma RN RESOURCE NURSE Unavailable Unavailable Man, M Fatuma RN RESOURCE NURSE Unavailable Unavailable Man, M Fatuma RN RESOURCE NURSE Unavailable Unavailable GALGANO, GIANNI COLBY Unavailable Unavailable GALGANO, GIANNI COLBY Unavailable Unavailable GALGANO, GIANNI COLBY Unavailable Unavailable GALGANO, GIANNI COLBY Unavailable Unavailable GALGANO, GIANNI COLBY Unavailable Unavailable GALGANO, GIANNI COLBY Unavailable Unavailable GALGANO, GIANNI COLBY Unavailable Unavailable GALGANO, GIANNI COLBY Unavailable Unavailable GALGANO, GIANNI COLBY Unavailable Unavailable GALGANO, GIANNI COLBY Unavailable Unavailable GALGANO, GIANNI COLBY Unavailable Unavailable GALGANO, GIANNI COLBY Unavailable Unavailable GALGANO, GIANNI COLBY Unavailable Unavailable GALGANO, GIANNI COLBY Unavailable Unavailable GALGANO, GIANNI COLBY Unavailable Unavailable GALGANO, GIANNI COLBY Unavailable Unavailable GALGANO, GIANNI COLBY Unavailable Unavailable GALGANO, GIANNI COLBY Unavailable Unavailable GALGANO, GIANNI COLBY Unavailable Unavailable GALGANO, GIANNI COLBY Unavailable Unavailable GALGANO, GIANNI COLBY Unavailable Unavailable GALGANO, GIANNI COLBY Unavailable Unavailable GALGANO, GIANNI COLBY Unavailable Unavailable GALGANO, GIANNI COLBY Unavailable Unavailable GALGANO, GIANNI COLBY Unavailable Unavailable GALGANO, GIANNI COLBY Unavailable Unavailable GALGANO, GIANNI COLBY Unavailable Unavailable GALGANO, GIANNI COLBY Unavailable Unavailable GALGANO, GIANNI COLBY Unavailable Unavailable ROYAL, Alisson JASON MD Unavailable Unavailable ROYAL, Alisson JASON MD Unavailable Unavailable ROYAL, Alisson JASON MD Unavailable Unavailable ROYAL, Alisson JASON MD Unavailable Unavailable ROYAL, Alisson JASON MD Unavailable Unavailable ROYAL, Alisson JASON MD Unavailable Unavailable ROYAL, Alisson JASON MD Unavailable Unavailable ROYAL, Alisson JASON MD Unavailable Unavailable ROYAL, Alisson JASON MD Unavailable Unavailable ROYAL, Alisson JASON MD Unavailable Unavailable ROYAL, Alisson JASON MD Unavailable Unavailable ROYAL, Alisson JASON MD Unavailable Unavailable ROYAL, Alisson JASON MD Unavailable Unavailable ROYAL, Alisson JASON MD Unavailable Unavailable ROYAL, Alisson JASON MD Unavailable Unavailable ROYAL, Alisson JASON MD Unavailable Unavailable ROYAL, Alisson JASON MD Unavailable Unavailable ROYAL, Alisson JASON MD Unavailable Unavailable ROYAL, Alisson JASON MD Unavailable Unavailable ROYAL, A SHERARD MD Unavailable Unavailable ROYAL, A SHERARD MD Unavailable Unavailable ROYAL, A SHERARD MD Unavailable Unavailable ROYAL, A SHERARD MD Unavailable Unavailable ROYAL, A SHERARD MD Unavailable Unavailable ROYAL, A SHERARD MD Unavailable Unavailable ROYAL, A SHERARD MD Unavailable Unavailable ORYAL, A SHERARD MD Unavailable Unavailable ROYAL, A SHERARD MD Unavailable Unavailable ROYAL, A SHERARD MD Unavailable Unavailable ROYAL, A SHERARD MD Unavailable Unavailable ROYAL, A SHERARD MD Unavailable Unavailable ROYAL, A SHERARD MD Unavailable Unavailable ROYAL, A SHERARD MD Unavailable Unavailable ROYAL, A SHERARD MD Unavailable Unavailable ROYAL, A SHERARD MD Unavailable Unavailable ROYAL, A SHERARD MD Unavailable Unavailable ROYAL, A SHERARD MD Unavailable Unavailable ROYAL, A SHERARD MD Unavailable Unavailable ROYAL, A SHERARD MD Unavailable Unavailable ROYAL, A SHERARD MD Unavailable Unavailable ROYAL, A SHERARD MD Unavailable Unavailable ROYAL, A SHERARD MD Unavailable Unavailable ROYAL, A SHERARD MD Unavailable Unavailable ROYAL, A SHERARD MD Unavailable Unavailable ROYAL, A SHERARD MD Unavailable Unavailable ROYAL, A SHERARD MD Unavailable Unavailable ROYAL, A SHERARD MD Unavailable Unavailable ROYAL, A SHERARD MD Unavailable Unavailable ROYAL, A SHERARD MD Unavailable Unavailable ROYAL, A SHERARD MD Unavailable Unavailable ROYAL, A SHERARD MD Unavailable Unavailable ROYAL, A SHERARD MD Unavailable Unavailable ROYAL, A SHERARD MD Unavailable Unavailable ROYAL, A SHERARD MD Unavailable Unavailable Otite, Marvin Fadar Unavailable Unavailable Otite, Marvin Fadar Unavailable Unavailable Re-disclosure Warning The records that you are about to access may contain information from federally-assisted alcohol or drug abuse programs. If such information is present, then the following federally mandated warning applies: This information has been disclosed to you from records protected by federal confidentiality rules (42 CFR part 2). The federal rules prohibit you from making any further disclosure of this information unless further disclosure is expressly permitted by the written consent of the person to whom it pertains or as otherwise permitted by 42 CFR part 2. A general authorization for the release of medical or other information is NOT sufficient for this purpose. The Federal rules restrict any use of the information to criminally investigate or prosecute any alcohol or drug abuse patient.The records that you are about to access may contain highly sensitive health information, the redisclosure of which is protected by Article 27-F of the [facility] Public Health law. If you continue you may have access to information: Regarding HIV / AIDS; Provided by facilities licensed or operated by the [facility] Office of Mental Health; or Provided by the [facility] Office for People With Developmental Disabilities. If such information is present, then the following [facility] mandated warning applies: This information has been disclosed to you from confidential records which are protected by state law. State law prohibits you from making any further disclosure of this information without the specific written consent of the person to whom it pertains, or as otherwise permitted by law. Any unauthorized further disclosure in violation of state law may result in a fine or skilled nursing sentence or both. A general authorization for the release of medical or other information is NOT sufficient authorization for further disc losure. Allergies and Adverse Reactions Type Description Substance Reaction Status Data Source(s ) Drug Class NO KNOWN ALLERGIES NO KNOWN ALLERGIES [facility] Family History Family Member Name Family Member Gender Family Member Status Date o f Status Description Data Source(s) Unknown Female Problem [facility] ([facility] Encounters Encounter Providers Location Date Indications Data Source(s ) Unknown [address] [facility] [address] 09/03/2020 12:00:00 AM EST eCW1 ([facility]) Outpatient [address] [facility] [id number] 06/21/2020 12:00:00 AM EST eCW1 ([facility]) Outpatient Attender: Demario Stevens PAConsultant: STAFF NON 05/28/2020 08:19:00 AM EDT - 05/28/2020 08:19:00 AM EDT [facility] Outpatient Attender: Demario Stevens PAConsultant: STAFF NON 05/18/2020 01:43:00 PM EDT - 05/18/2020 02:43:00 PM EDT [facility] Outpatient Attender: Demario Stevens PAConsultant: STAFF NON 05/16/2020 12:49:00 PM EDT - 05/16/2020 12:59:00 PM EDT [facility] Unknown [address] [facility] [id number] 05/11/2020 12:00:00 AM EDT eCW1 ([facility]) Outpatient Attender: Demario DOSHI 03/19 09:16:00 AM EDT - 03/19/2020 09:16:00 AM EDT [facility] Outpatient Attender: Enzo Espinosa MD 03/19/2020 12:00:00 AM [facility] Outpatient Attender: Demario DOSHI 03/12 09:05:00 AM EDT - 03/12/2020 09:05:00 AM T [facility] Outpatient Attender: Ni DOSHI 03/07/2020 12:00:00 AM [facility] Outpatient Attender: Enzo Espinosa MD 03/05/2020 12:00:00 AM [facility] Outpatient Attender: EREN PAIGE MD [id number] 02/28 12:00:00 AM EDT - 02/29/2020 04:35:09 PM EDT Dermatitis, unspecified [facility] Dermatitis, unspecified Outpatient Attender: MIKA HAIDERReferrer: EREN WRIGHT MD [id number] 02/29/2020 12:00:00 AM EDT Unspecified hearing loss, right ear [facility] Unspecified hearing loss, right ear Outpatient Referrer: Fatuma Man NP 02/29/2020 12:00:00 AM [facility] Outpatient Referrer: Fautma Man NP 02/22/2020 12:00:00 AM [facility] Outpatient Referrer: Fatuma Man NP 02/22/2020 12:00:00 AM [facility] Inpatient Attender: DEFAULT / GENE YELENA / UNKNOWN PROVIDER ALIASES Attender: GIANNI LOZOYA MDAttender: BUNNY BUSH MDAdmitter: Bethany OtiteReferrer: Bethany OtiteConsultant: Osmin Redding MD [id number] 02/19/2020 12:00:00 AM EDT - 02/23/2020 11:16:00 AM EDT Epidural hemorrhage with loss of consciousness of unspecified duration, initial encounter [facility] Epidural hemorrhage with loss of conscio usness of unspecified duration, initial encounter Patient discharged. Immunizations Vaccine Date Status Description Data Source(s) HPV9 06/21/2020 05:16:00 PM EST completed e CW1 ([facility]) HPV9 06/21/2020 05:16:00 PM EST completed e CW1 ([facility]) Medications Medication Brand Name Start Date Product Form Dose Route Admi nistrative Instructions Pharmacy Instructions Status Indications Reaction Description Data Source(s) POLYETHYLENE GLYCOL 3350 142 MG/ML Oral Solution Polyethylene Glycol 3350 17 GM Oral Packet (MIRALAX) Polyethylene Glycol 3350 17 GM Oral Packet (MIRALAX) 02/24/2020 12:00:00 AM EDT 17 g Oral active Take 1 packet by mouth daily for 3 daysPlease substitute bottle for packets, if packets are unavailable. [facility] bacitracin 500 UNIT/GM EX ointment 4505-7302-07 02/24/2020 12:00:00 A M EDT active Apply a thin l patrica to cranial incision and neck incision for 7 days [facility] bacitracin 500 UNIT/GM EX ointment 7608-5107-32 02/24/2020 12:00:00 A M EDT aborted Apply a thin layer t o cranial incision for 7 days [facility] pantoprazole 4 MG/ML Injectable Solution Pantoprazole Sodium 40 MG Intravenous Solution Reconstituted (PROTONIX) Pantoprazole Sodium 40 MG Intravenous So lution Reconstituted (PROTONIX) 02/24/2020 12:00:00 AM EDT 40 mg Intraven ous aborted Inject 40 mg into the vein daily [facility] sennosides, FPC 8.6 MG Oral Tablet Senna 8.6 MG Oral T ablet Senna 8.6 MG Oral Tablet 02/23/2020 12:00:00 AM EDT 2 {tbl} Oral aborted Take 2 tablets by mouth nightly as needed [facility] Acetaminophen 325 MG Oral Tablet Acetaminophen 325 MG Oral T ablet 02/23/2020 12:00:00 AM EDT 975 mg Oral active Take 3 tablets by mouth every 6 (six) hours as needed for Pain for up to 10 days [facility] Oxycodone Hydrochloride 5 MG Oral Tablet oxyCODONE HCl 5 MG Oral Tablet (ROXICODONE) oxyCODONE HCl 5 MG Oral Tablet (ROXICODONE) 02/23/2020 12:00:00 AM EDT 5 mg Oral active Take 1 t ablet by mouth every 4 (four) hours as needed for up to 3 days, Max Daily Dose: 30 mg [facility] Heparin Sodium (Porcine) 5000 UNIT/ML Injection Solution [id number] 02/23/2020 12:00:00 AM EDT 5000 U Subcutaneous aborted Inject 1 mL into the skin Two Times Daily for 10 days [facility] bacitracin ointment 7564-2520-41 02/22/2020 02:30:00 PM EDT Topical active Topical, Daily Farshad darjerry, First dose (after last modification) on Thu02/22/20 at 1430, For 9 doses
Apply to a thin layer to cranial incision and neck incision daily
[facility] Medication administered onsite Metronidazole 5 MG/ML Injectable Solution metroNIDAZOL E (FLAGYL) IVPB 500 mg metroNIDAZOLE (FLAGYL) IVPB 500 mg 02/22/2020 12:00:00 PM EDT 50 0 mg Intravenous completed 500 mg, Intra venous, Administer over 60 Minutes, Every 6 hours, First dose (after last modification) on Thu02/22/20 at 1200, For 3 doses [facility] Medication administered onsite bacitracin ointment 8930-5470-56 02/22/2020 09:00:00 AM EDT Topical aborted Topical, Daily Farshad sonal, First dose on Thu02/22/20 at 0900, For 10 doses
Apply to a thin layer to cranial incision and neck incision daily
[facility] Medication administered onsite Metronidazole 5 MG/ML Injectable Solution metroNIDAZOL E (FLAGYL) IVPB 500 mg metroNIDAZOLE (FLAGYL) IVPB 500 mg 02/21/2020 04:00:00 PM EDT 50 0 mg Intravenous aborted 500 mg, Intra venous, Administer over 60 Minutes, Every 6 hours, First dose (after last modification) on Thu02/21/20 at 1600, For 14 doses [facility] Medication administered onsite Acetaminophen 10 MG/ML Injectable Soluti on acetaminophen (OFIRMEV) infusion 1,000 mg acetaminophen (OFIRMEV) infusion 1,000 mg 02/21/2020 03:00:00 PM EDT 1000 mg Intravenous completed 1,000 mg , Intravenous, Administer over 15 Minutes, Once, Thu02/21/20 at 1500, For 1 dose
Maximum dose 3 gm daily from all sources
[facility] Medication administered onsite NaCl infusion 0.9 % [id number] 02/21/2020 12:15:00 PM EDT Intravenous aborted at 100 mL/hr, Intrav enous, Continuous, Starting Thu02/21/20 at 1215, For 30 days [facility] Medication administered onsite pantoprazole 4 MG/ML Injectable Solution pantoprazole (PROTONIX) injection 40 mg pantoprazole (PROTONIX) injection 40 mg 02/21/2020 12:15:00 PM EDT 40 mg Intravenous active 40 mg, Intrav enous, Daily Standard, First dose on Thu02/21/20 at 1215, For 30 days [facility] Medication administered onsite ondansetron (ZOFRAN) injection 4 mg [id number] 02/21/2020 10:51:5 3 AM EDT 4 mg Intravenous active 4 mg, In travenous, Every 8 hours PRN, Nausea, Vomiting, Starting Thu02/21/20 at 1051, For 30 days [facility] Medication administered onsite POLYETHYLENE GLYCOL 3350 142 MG/ML Oral Solution polyethylene glycol (MIRALAX) packet 17 g polyethylene glycol (MIRALAX) packet 17 g 02/21/2020 0 9:00:00 AM EDT 17 g Oral active 17 g, Or al, Daily Standard, First dose on Thu02/21/20 at 0900, For 30 days
Mix in 8 ounces of water, juice or milk. Avoid use in patients who require thickened liquids due to potential increased risk for aspiration.
[facility] Medication administered onsite Magnesium Hydroxide 80 MG/ML Oral Suspen bry magnesium hydroxide (MILK OF MAGNESIA) 400 MG/5ML suspension 45 mL magnesium hydroxide (MILK OF MAGNESIA) 4 00 MG/5ML suspension 45 mL 02/20/2020 10:00:00 PM EDT 45 mL Oral active 45 mL,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 rce(s) Supporting Document(s) Osmolality of Serum or Plasma 285 mosm/kg 285-295 [facility] ID Date Data Source [id number] 02/20/2020 05:00:39 AM EDT [facility] Name Value Range Interpretation Code Description Data Gisela rce(s) Supporting Document(s) Bicarbonate [Moles/volume] in Serum 22 mmol/L 22-29 [facility] Chloride [Moles/volume] in Serum or Plasma 105 mmol/L 98-107 [facility] Creatinine [Mass/volume] in Serum or Plasma 0.66 mg/dL 0.70-1.20 L [facility] Glucose [Mass/volume] in Serum or Plasma 105 mg/dL 70-140 [facility] Potassium [Moles/volume] in Serum or Plasma 4.5 mmol/L 3.4-5.1 [facility] Sodium [Moles/volume] in Serum or Plasma 134 mmol/L 136-145 L [facility] Urea nitrogen [Mass/volume] in Serum or Plasma 9 mg/dL 6-20 [facility] Anion gap 3 in Serum or Plasma 8 mmol/L 8-15 [facility] Osmolality of Serum or Plasma by calculation 278 mosm/kg 275-300 [facility] Creatinine/Urea nitrogen [Mass Ratio] in Serum or Plasma 13 [facility] Calcium [Mass/volume] in Serum or Plasma 7.4 mg/dL 8.6-10.0 L [facility] Glomerular filtration rate/1.73 sq M pre dicted among non-blacks [Volume Rate/Area] in Serum or Plasma by Creatinine-based formula (MDRD) >6 0 [facility] Glomerular filtration rate/1.73 sq M pre dicted among blacks [Volume Rate/Area] in Serum or Plasma by Creatinine-based formula (MDRD) >60 [facility] ID Date Data Source [id number] 02/20/2020 05:00:39 AM EDT [facility] Name Value Range Interpretation Code Description Data Gisela rce(s) Supporting Document(s) Magnesium [Mass/volume] in Serum or Plasma 2.4 mg/dL 1.6-2.6 [facility] ID Date Data Source [id number] 02/20/2020 05:00:39 AM EDT [facility] Name Value Range Interpretation Code Description Data Gisela rce(s) Supporting Document(s) Phosphate [Mass/volume] in Serum or Plasma 1.9 mg/dL 2.5-4.5 L [facility] ID Date Data Source [id number] 02/19/2020 04:48:44 PM EDT [facility] XR CHEST FRONTAL ONLY [id number] RESULTI nterpreted by:CARRIE BermudezPROCEDURE INFORMATION: Exam: XR Chest, 1 View Exam date and time: 02/19/2020 4:44 PM Age: 34 years old Clinical indication: Epidural hemorrhage with loss of consciousness of unspecified duration, initial encounter; Other: Ett retracted. Check position TECHNIQUE: Imaging protocol: XR of the chest Views: 1 view. COMPARISON: DX XR CHEST FRONTAL ONLY [id number] PORTABLE 02/19/2020 8:51 AM FINDINGS: Tubes, catheters and devices: ET tube terminates approximately 3.5 cm above the adrienne. Lungs: Interval decrease in size of the right lung base opacity. Pleural space: Suspect small right pleural effusion. No pneumothorax. Heart/Mediastinum: Unchanged. Bones/joints: Unremarkable. IMPRESSION: 1. ET tube terminates approximately 3.5 cm above the adrienne. 2. Interval decrease in size of the right lung base opacity. THIS DOCUMENT HAS BEEN ELECTRONICALLY SIGNED BY SHU COLBY MDThis document has been electronically signed by CARRIE Whitfield on 02/19/2020 4:48 PM Name Value Range Interpretation Code Description Data Gisela rce(s) Supporting Document(s) ID Date Data Source [id number] 02/19/2020 02:45:[address] [facility]AST [id number] RESU LTInterpreted by:Magdy Feliciano MDHISTORY: Status post craniotomy for hematoma evacuation.COMPARISON: NoneTECHNIQUE: Noncontrast CT head. Automated dose-lowering techniques and/or adjustment according to patient size were utilized for this exam.FINDINGS:Right subfrontal parietal craniotomy and overlying scalp postsurgical changes are noted. There is minimal residual subdural collection containing air-fluid over the right frontotemporal region measuring up to 4.5 mm in the widest transverse dimension. There is some minimal mass effect on the underlying brain. The ventricles remain midline and normal size. A small acute subdural hematoma is noted over the left frontal region measuring approximately 2.7 mm in the widest transverse dimension. Otherwise no evidence of acute intracranial bleeding. The basal cisterns remain patent.IMPRESSION:Status post right frontoparietal craniotomy with the small residual subdural air fluid collection. Small left-chetan ed subdural hematoma measuring up to 2.7 mm in the widest transverse dimension. No evidence of midline shift.This document has been electronically signed by Magdy Feliciano MD on 02/19/2020 2:43 PM Name Value Range Interpretation Code Description Data Gisela rce(s) Supporting Document(s) ID Date Data Source [id number] 02/19/2020 01:16:22 PM EDT [facility] Name Value Range Interpretation Code Description Data [facility] rce(s) Supporting Document(s) Leukocytes [#/volume] in Blood by Automated count 15.3 10*3/uL 4-10 H [facility] Erythrocytes [#/volume] in Blood by Automated count 2.84 10*6/uL 4.6- 6.1 L [facility] Hemoglobin [Mass/volume] in Blood 8.2 g/dL 13.5-18 L [facility] Hematocrit [Volume Fraction] of Blood by Automated count 23.9 % 4 1-53 L [facility] Erythrocyte mean corpuscular volume [Entitic volume] by Auto mated count 84.1 fL 80-96 [facility] Erythrocyte mean corpuscular hemoglobin [Entitic mass] by Automated count 28.8 pg 27-33 [facility] Erythrocyte mean corpuscular hemoglobin concentration [Mass/volume] by Automated count 34.2 g/dL 32.0-36.0 [facility] al Erythrocyte distribution width [Ratio] by Automated count 12.9 % 11.5-14.5 [facility] Platelets [#/volume] in Blood by Automated count 217 10*3/uL 150-400 [facility] Differential cell count method - Blood [facility] Neutrophils/100 leukocytes in Blood by Automated count 87 % [facility] Lymphocytes/100 leukocytes in Blood by Automated count 6 % [facility] Monocytes/100 leukocytes in Blood by Automated count 7 % [facility] Eosinophils/100 leukocytes in Blood by Automated count 0 % [facility] Basophils/100 leukocytes in Blood by Automated count 0 % [facility] Neutrophils [#/volume] in Blood by Automated count 13.21 10*3/uL 1.8- 7.0 H [facility] Lymphocytes [#/volume] in Blood by Automated count 0.96 10*3/uL 1.2-4 .0 L [facility] Monocytes [#/volume] in Blood by Automated count 1.08 10*3/uL 0-0.8 H [facility] Eosinophils [#/volume] in Blood by Automated count 0.00 10*3/uL 0-0.5 [facility] Basophils [#/volume] in Blood by Automated count 0.02 10*3/uL 0-0.2 [facility] Nucleated erythrocytes/100 leukocytes [Ratio] in Blood by Automated count 0 /100{WBCs} 0-0 [facility] ID Date Data Source [id number] 02/19/2020 12:44:14 PM EDT [facility] Name Value Range Interpretation Code Description Data Gisela rce(s) Supporting Document(s) History and Physical [facility] TMJOBb4xUzBKHpFs56/MVDwlESCyh3GoUUocEKn5FZgrRPZxU5YiWQD3mC0pOFM3WZnETjDvBqMyCjGw [facility] [file] ArbpDx9Ui8th5vqazG0+5OEeL9QCbHXwg7qqgP4D1IRbP9m6cuPWasYR7ZoE0U/Creosoting Engineer+/A4NBlDDNZ8zAW Ls1bOfpqlK/InGYUB2eU1Gp9O1uAlkcb7mSbRSSg3069j5ikAVuMK+5PX2xpgYeaVd4zrEalexeAqYWF olcT1sIP1bHiz1oR00rmUFPT509FKsun/WL03IU7Hy RrKOpfAdyLOj+H0xGQFaW28hOZ8rwOtz0ZzyWvP1z0oErTkJQEaDDl+o5/QIghP5EnJAzS6POgG2xpfK xbrQxCRfYRenL5soSCHnVIg7PLopadc5lYFBx8/wSl+9ZsQhI5W9hMeFRt4rPwObF5kwi6OXCV7EMwkO +A+9L0HJ9lNNOVaEIxVrK6ZzYYBfJ3DVNrD2HU6AcV LxSU5iVgjj4Q+1w4sX2J/CKzz2FE3+S9zeKMhluT218wzkOqJmY5w5bz/[place]/R4qWV7Tz9w0a8hyVNQix [file] AgICAgICAgICAgICAgICAgICAgICAgICAgICAgICAgICAgICAgICAgICAgICAgICAgICAgICAgICAgIC AgICAgICAgICAgICAgICAgICANCiAgICAgICAgICAg ICAgICAgICAgICAgICAgICAgICAgICAgICAgICAgICAgICAgICAgICAgICAgICAgICAgICAgICAgICAg ICAgICAgICAgICAgICAgICAgICAgICAgICAgICANCiAgICAgICAgICAgICAgICAgICAgICAgICAgICAg ICAgICAgICAgICAgICAgICAgICAgICAgICAgICAgIC AgICAgICAgICAgICAgICAgICAgICAgICAgICAgICAgICAgICAgICANCiAgICAgICAgICAgICAgICAgIC AgICAgICAgICAgICAgICAgICAgICAgICAgICAgICAgICAgICAgICAgICAgICAgICAgICAgICAgICAgIC AgICAgICAgICAgICAgICAgICAgICANCiAgICAgICAg ICAgICAgICAgICAgICAgICAgICAgICAgICAgICAgICAgICAgICAgICAgICAgICAgICAgICAgICAgICAg ICAgICAgICAgICAgICAgICAgICAgICAgICAgICAgICANCiAgICAgICAgICAgICAgICAgICAgICAgICAg ICAgICAgICAgICAgICAgICAgICAgICAgICAgICAgIC AgICAgICAgICAgICAgICAgICAgICAgICAgICAgICAgICAgICAgICAgICANCiAgICAgICAgICAgICAgIC AgICAgICAgICAgICAgICAgICAgICAgICAgICAgICAgICAgICAgICAgICAgICAgICAgICAgICAgICAgIC AgICAgICAgICAgICAgICAgICAgICAgICANCiAgICAg ICAgICAgICAgICAgICAgICAgICAgICAgICAgICAgICAgICAgICAgICAgICAgICAgICAgICAgICAgICAg ICAgICAgICAgICAgICAgICAgICAgICAgICAgICAgICAgICANCiAgICAgICAgICAgICAgICAgICAgICAg ICAgICAgICAgICAgICAgICAgICAgICAgICAgICAgIC AgICAgICAgICAgICAgICAgICAgICAgICAgICAgICAgICAgICAgICAgICAgICANCiAgICAgICAgICAgIC AgICAgICAgICAgICAgICAgICAgICAgICAgICAgICAgICAgICAgICAgICAgICAgICAgICAgICAgICAgIC AgICAgICAgICAgICAgICAgICAgICAgICAgICANCjw/ lVEiG2rioFNvliN4P6puVh0AQn6ZGS9yp3LrBPYcDUqardTzApiZCzIwQQDlApnCAex4UQluQN1NiELw Z5PtY5BuNWgcOE0IRNKgECPtjVRxPBWcWKQrLmB3HZUkDEsxFI0HxGJsGGtzZCRnHFKsTqJzWKIbZIBt FVKvYFNmLBRTYV2AGiIaI7GtoF48AZXKMe1+DQplbm DvSnzMVfTlRTWfa7AgTTz5NK7XLKOdMfjnc5QnLvFtNUNCPAslJD4PZIX5MJW8LPXrFd6PIDXqP989yz QzUI7QIv5YXeLhND5grh7NScCmFRHnEdnUVtf1ZYiqJZ8TyTIqRYrUQuPqYfsoECDcgEN2NEFnvfwtmU 5GIDCpaNeeJSCxIIXuDr7bGe8zAKXxIHZkRvP5MIPW VQ7VGHRmFQIcgMYcDRFgYEJJXV1FQTtlBHT5XJEzlgWnyVEzWSanGH1NAKNedyAcNnWsMSSAPIc+Pg0K DP8sv7RgIUlgLOCuPF6bqv3WWHhMNdHzY1G5aMWmD8C4BBlcAl7OYZXiTKOaZkUkXLDEHRhcHX6XNG7o xqH0XV8QdBFdWTSdPGGogCEkRYb0Z72hrPYhTRlyRA 0KICA+Neva+Ut4LBKCkINSsZAKyGePhBRYVUnAnY5UwT5QOg5HbD0VfRQ08uRsqjmLeATcfDX1IQN2mBK RkVEPSJY6TbRNjgI9lczZoGbRqGHPIKmQpS91pgXEbVRDiEIPjTFOfXj5ZOJIlW1FuqjHmiUxyrtKtRH XzURTXHC7IPLxzwbWhaXUnxRjrUA15dWqsXV9KEl3V MzGlRB4sul6FyVPtLm9VSMShMk7MZOGbPHLrMKVfTDS9MLKrEzFzNIlqWFTkMLMwGPP8IAGaEVDnWI1T XuOzCUHoVBK2VeIvRJUzARNltz9ENFDsOMS9IfstTfWkMTVgLEBeQDtaUHSvIWFjNGD8SADuPIBuPA0E GdNyEJXnNDEaRQYrZXOdZMApvi5RIQZmXIVjNmI3Bh PrTWRaDSEdTYsaWTImDDT3SnM5LPRjWEWoBR6SLsXzUFIdAVO3CsAcJMNdSHBpmo6UBMFqDHLpOPn0UP NmDIEtBNWiOZmvKCMnSIF2PCp0EKKwEBDlCS3ETrSrALGuYADjOsabWMRiEFVshz0QMZXySIHmNEM9Jz NbLRYeELOeGIivJOXoWGZeWHPlZYOvULGrHL9HIxBt JHHuMYL4AFVfBNZkCNLsdr1URZTdDHJmYOppMfZbCUUuMSOoRHcxSWFzMLDnFgcwPYAhRVBiKK1QPaVc XIGvNZE4KYNwZIHyGYQztw3JRIBmCYCaFzL7RoZcBTPcHZYdJCwqYROxMVX9DSCyGGEnIWGdNW1GYaSx LYWdZWEmXgktYBVfXOQmoq1KXEUhYSYzMTCaNzLjVU DlMSYnOJxhYAUaQZC7VGyzPOGbGZPxYR6VBvLlDXGwDFK6SsCgSWKmCNYigf9PCBRvSNHaHVi7OIKpNX OuMXVkXZjiSSGmPZAeCKF9EJZbBIYxCN9ZPxMgXXWhMqWnGSgkOYJnECBvhm7CUOAxLBMeFLJ3CCZqBR YrCRBkKGgrAEFkKGX0KQo4BLPxNNZhKL8GVyLmGCBe VxGtFcJlYBGkJJSbnh5NEJLuZZLjBHP9CCJoNXEiGXFoEFlxMDPlFBM7ACr2RCNeXKKyPZ1HEbBdTDCs ORQtUoYeWDBeMIQjsg4DZWYdXRA3JnoqVKVlPNUuGWNkDMloMWTiBWW2SBqsNZYiSSNoAP1HSiZkYPQy MCypBrScJCDsBVLhqf7HoOHnnLoaqj3LXRpONz9QvC poDQB7PRujNf7mhOAmHBFxBNBAFi7NctYbMGCoEIYLMSzkOKLuMVJ9BaIrT0NyJJHmT0YbRKJ1QIQ3JG ReZ9Q7QiI6CMG4TiR0JJLlASN3BwIcM4P0DyEeZbUvOVZnPtW8ByPvQyGaFSP+VP3yAKj+Ca1Pn2Iepj F0meReNNj0MuC7Fq8TRCCGF9EQVh== ID Date Data Source [id number] 02/19/2020 12:37:18 PM EDT [facility] Name Value Range Interpretation Code Description Data Gisela e(s) Supporting Document(s) Consultation [facility] FDYFVf7hEvDCVlKb32/TLIxiFVXmo2WyPEltMXn0XKivVSLyX9BdNNG9hF0sGRS8YNaSRbYmDwGwEaRy lbm VjGytDHrXkHMNbMltXSiOxTAfjOvetnTIaSC0AbMZ9TZVmH15lXBQlDPKjR7TjRHD8KIj+Ut8NZZTbnX HrSP6NRgwK2Usukad6CY8bSL6KWmXFKnW16XV44Ant66YWL4UdizwQ3RguEIejWSLdvsGZn81kPxD/E+ oCULZYomeSQQSn0P/ALlap+t/Lizeth+NgyBQ0/+zn2mu [file] [place]+NU4XRb+uiMcsArlhobplW+0sl66dEUE0JMvl5rmy8nKgOyDk8sP4SWDYrS856GjVZBal3veWlS5x [file] AdEQBhRKTmWXPrAOE4HzxkVKIuEkr3Vl6iZHROJs2+SIvrjSRpeRswYEBOMiw3IRSTXgJuBA4JMUa= ID Date Data Source [id number] 02/19/2020 12:27:09 PM T [facility] Name Value Range Interpretation Code Description Data Gisela rce(s) Supporting Document(s) Leukocytes [#/volume] in Blood by Automated count 4-10 [facility] 9F NOTIFIED AT 1226 BY 1472 Erythrocytes [#/volume] in Blood by Automated count 4.6-6. 1 [facility] FORTUNE,RN 9F NOTIFIED AT 1226 BY 1472 Hemoglobin [Mass/volume] in Blood 13.5-18 [facility] JASON ALEX,RN 9F NOTIFIED AT 1226 BY 1472 Hematocrit [Volume Fraction] of Blood by Automated count 4 1-53 [facility] JASONBRITTNEY JOHNSON,RN 9F NOTIFIED AT 1226 BY 1472 Erythrocyte mean corpuscular volume [Entitic volume] by Automate d count 80-96 [facility] ALEX,RN 9F NOTIFIED AT 1226 BY 1472 Erythrocyte mean corpuscular hemoglobin [Entitic mass] by Au tomated count 27-33 [facility] A[facility],RN 9F NOTIFIED AT 1226 BY 1472 Erythrocyte mean corpuscular hemoglobin concentration [Mass/volume] by Automated count 32.0-36.0 [facility] al JASON ALEX,RN 9F NOTIFIED AT 1226 BY 1472 Erythrocyte distribution width [Ratio] by Automated count 11.5-14.5 [facility] ALEX,RN 9F NOTIFIED AT 1226 BY 1472 Platelets [#/volume] in Blood by Automated count 150-400 [facility] ALEX,RN 9F NOTIFIED AT 1226 BY 1472 Sample quality of Dried blood spot [facility] JASON ALEX,RN 9F NOTIFIED AT 1226 BY 1472 Differential cell count method - Blood [facility] ALEX,RN 9F NOTIFIED AT 1226 BY 1472 ID Date Data Source [id number] 02/19/2020 11:35:56 AM EDT [facility] Name Value Range Interpretation Code Description Data G[facility](s[facility] Supporting Document(s) [facility] CHGAUh5tHcYABhOxn0XoKyErNCYnMP6rbbv6X4B2fZQsA4PinMDdp1csJ4GzI1VdCYZqBDDSYB0KaEOp jb2 [file] a2ub6eGBd6+8TzhZ4u+maria de jesus+j1DNFM795WkzJ+oxQrcY42VBqax9Ey0cidF1u8kZsoL0Bpv1coaBlQcHvh [file] dy20739pwa4+/vT1x58+uGWe22kP2pjFd3/2wH8TqSUXQ606lgp/u69/1wzbh8857Wuq2514+29ff/71 26cP33/39pnZM929KxNym604+PR6zg/ff/ftDx//b8Ogjxbs1ufA/v3HL7/+u6+/tCna03rMx000+/z2 5v293JZgi6++/e714t+8vuA/uL/Gt5+r3j5++fc/v8 rByyut4n9/9PGnr7/78Yfnyh/iLyu04xcjCqong//h2RdU5sRFv6/+07/84S9//P0/v/33//320/Oxnz 59/WFC64z56ac/oxzwn1gjh/zm7Z/+U13/9Ndvf/7T2/xllV/sR8s8l2IoqZqdO1/7xmYrksBS5rL//O Mv/5SS3hlfTUvS/dRNgVvlcHJd2kr/L1BTtC+6/7b8 YdzLDtMemtCYQ9xLx59Y28trNq6+/TFe8Ysc8FwIO59qR85z41N7Han5+3/5/V/+LrT3eawslj7+/c3H f3z7uw+drg3h2j9++PCrj5/dxDJ6r2/W96+bb7OO68x2ful/9GyYv/af3I0UekS9snogg/6uSf/0+z/9 29++/eW3//b7d8W/5bE9x7JhLLRV/i67NbH//POyD/ T9p7c//Onffv+X//u3//M/KPzU6/jCI0SfqU7+XvrB/uHTD2///L9eb/6HP//m40JsmDhjJv3UGTzeZn /yHz7/tx81TqJ+msp+2WW/J96h1ITEEis3+bCOd5nYUoNWD/plPleJ24/90ChBp6/9f37/r/++B92fJu 3R32235o+cvWWyWkrf8I//5Z/++mdXn9/wm9/+z3c/ d79Dv/zt//rdb//1D7/908/uPxU9+x9+Bt4q+vTnP//xi/rpZ/j5mm/+/VuuqA2DEGYnMZJJW//+d//X n/4os6faw2f+rmD3d3uSjMRk/dd/e7Wof/7i43/9+7cvf/3h27//+O+mu6eNglY8o/nNazj+1Qa437rL +/+/4OwFmUmLlrS17/6fv3+rb3/+w4z4t2TKJf7b5x 0n21udkPybG6/6/IUPgG+vwr896SUFUw/yCdeRMfQ1SM788Xt/jby59wBxb3hZ+jql/3/lRm6cPiRyDW N4pmRetMsdckAnOrbEXKpfTNAtTze4LO0IdCDnIYXdO5Y8KIMrxl2fFHSzTJBibMRvHtVuUCOSXT7DpF EmZB5LZJv7CLHeOXWtZwQeTTRhxyB7TRGzGKPzLENv L0QtngFewCTmERVdWv7+KH6iz2WpGvSaTDDdBvj0HA2WmUFmUM1HcYVrpD4wstJkJ070jlHrYTLnQkgu k0ZgQYfqHNSCZN4UNUB8DDQ3BKQgOb7+KH2os1NlQaXzPRAaHir8PL5DkHFvk2DrNF2ED9ReKWSbNJXW LGX2f9KqBHIomfvisenrA9JjENH8mT2sGVF6KJOcLD ktJAYaEDncOfQuMpDoUYnjKEIsQXBfUDKnESYoEUs4yRJjPO5IS8WeUHFxJNWFWYDyonEjYe1iWKKGHW bGLWIfPPmEL43WEKY1OsH6NUmeFR6ThBGsJUG8DEvHGNQMBGaHPTsgAlYbr6Z6YFNwC6LyUNKxfnAeVP RQMXrdDzbyCT5ycYtrhtmxL3GghUViJGMMKHVySONj XGGbEOXrN4Eaw4L2Z4EtIKuCNROFXHqGYCpaImF9x41tzlMTUCXzBVFrVA0+AJ8na4LrQc4SGSGqRV1q cjm5KW4QuHUaCO3YAAflpeKnE4mocxTnHqCgHTSLKL3tH3NxaF34ETB+AjIgYW2lare1csKmZnQcPPLs YUAqHGIdATbzEWDfVVZrVPHpXOK8DII9VQUlAiUqIF FqLfQaWJlfTRZpBBAkheLUNEWdQXP1UBicMTDsUEVuEJJqIYcvHQBxGAinKBbsOGBsYDWhFK1gHnEsHX KkKZKcHIIrDrF2QmVdJiOQODKmWYSmJMArIlFhCHGoZRChXLkaXOZpKYIbBUv5YVAhZYKlSA4qBaGmEG JtTLDzKSPdSXXqVBDjcpGRPKBeHPJuYMK5LFWmPZPp NASiOIywLHMdDTZaFCO6COCrXLZwDY8fIwFoSQCjYDK1RsTiJUEzESQzsxEFZXJlMRDkAET3RNOmIDAk YLFiNJzqNCKsDPRmHpA6KXBqDWUkSR4pTuRhAEFeHSG6XMYnVNMdGEXsxcEOYFYzDFWeUTl8CuKgIJAa QCNmNBdaIKBvLTPiSVneRLXmLCWfYA0zKpQzZISqPT AhTDYcXVEuVYDyptRBSCNaRHHdVKD7AlDnAPVoNRTzTIgtAGIoVGGiKUI6GFBhKFHlLY2vYcYhLFJmVt E3MaArZSQcTKLxznZWXIWyFHXaSUIoRPXmCNRkVPTnOKzmXFYdSLEvSaF2OINlABYaWK2pHvTuKZDuZM X3DBGbDMYvUPGvfkNLIKCtTNObLLIuUFJ6LMGhMRTa INg7wtLqsGCxYmg2Wn8VwPerFAY7Op0ZopHvNOHuSONDNe4Xb157VXVpNAQKVhi+PgpzdGFydHhyZWYK HpYdTYCDTCVFU3R= ID Date Data Source [id number] 02/19/2020 09:27:38 AM EDT [facility] XR CHEST FRONTAL ONLY [id number] RESULTI nterpreted by:MALENA Jenkinsadiograph of the chest AP viewClinical information: IntubatedComparison: Chest radiograph 02/19/2020 at 3:04 AMFindings:Endotracheal tube tip is just above the adrienne.The cardiac silhouette is unchanged. There is airspace opacity in the right mid and lower lung, new since prior study. There is subsegmental atelectasis at the left medial lung base. No pleural effusion or pneumothorax is seen.The osseous structures are unchanged. The visualized upper abdomen is normal.Impression:1. Endotracheal tube tip is just above the adrienne. Recommend retraction by 4 cm.2. Airspace opacity in the right mid and lower lung, new since prior study likely representing atelectasis.This document has been electronically signed by Fernando Ly MD on 02/19/2020 9:25 AM Name Value Range Interpretation Code Description Data Gisela rce(s) Supporting Document(s) ID Date Data Source [id number] 02/19/2020 08:38:03 AM [facility] Name Value Range Interpretation Code Description Data Gisela rce(s) Supporting Document(s) Leukocytes [#/volume] in Blood by Automated count 18.2 10*3/uL 4-10 [facility] Erythrocytes [#/volume] in Blood by Automated count 2.98 10*6/uL 4.6- 6.1 L [facility] Hemoglobin [Mass/volume] in Blood 8.3 g/dL 13.5-18 L [facility] Hematocrit [Volume Fraction] of Blood by Automated count 25.1 % 4 1-53 L [facility] Erythrocyte mean corpuscular volume [Entitic volume] by Auto mated count 84.3 fL 80-96 [facility] Erythrocyte mean corpuscular hemoglobin [Entitic mass] by Automated count 27.9 pg 27-33 [facility] Erythrocyte mean corpuscular hemoglobin concentration [Mass/volume] by Autom[facility] 33.1 g/dL [facility].0[facility] width [Ratio] by Automated count 12.9 % 11.5-14.5 [facility] Platelets [#/volume] in Blood by Automated count 244 10*3/uL 150-400 [facility] ID Date Data Source [id number] 02/19/2020 08:38:55 AM [facility] Name Value Range Interpretation Code Description Data Gisela rce(s) Supporting Document(s) Osmolality of Serum or Plasma 303 mosm/kg 285-295 [facility] ID Date Data Source [id number] 02/19/2020 08:57:13 AM [facility] Name Value Range Interpretation Code Description Data Gisela rce(s) Supporting Document(s) Bicarbonate [Moles/volume] in Serum 17 mmol/L 22-29 L [facility] Chloride [Moles/volume] in Serum or Plasma 104 mmol/L 98-107 [facility] Creatinine [Mass/volume] in Serum or Plasma 0.70 mg/dL 0.70-1.20 [facility] Glucose [Mass/volume] in Serum or Plasma 98 mg/dL 70-140 [facility] Potassium [Moles/volume] in Serum or Plasma 4.1 mmol/L 3.4-5.1 [facility] Sodium [Moles/volume] in Serum or Plasma 134 mmol/L 136-145 L [facility] Urea nitrogen [Mass/volume] in Serum or Plasma 7 mg/dL 6-20 [facility] Anion gap 3 in Serum or Plasma 13 mmol/L 8-15 [facility] Osmolality of Serum or Plasma by calculation 277 mosm/kg 275-300 [facility] Creatinine/Urea nitrogen [Mass Ratio] in Serum or Plasma 10 [facility] Calcium [Mass/volume] in Serum or Plasma 6.5 mg/dL 8.6-10.0 L [facility] Glomerular filtration rate/1.73 sq M pre dicted among non-blacks [Volume Rate/Area] in Serum or Plasma by Creatinine-based formula (MDRD) >6 0 [facility] Glomerular filtration rate/1.73 sq M pre dicted among blacks [Volume Rate/Area] in Serum or Plasma by Creatinine-based formula (MDRD) >60 [facility] ID Date Data Source [id number] 02/19/2020 08:57:13 AM [facility] Value Range Interpretation Code Description Data Gisela rce(s) Supporting Document(s) Magnesium [Mass/volume] in Serum or Plasma 1.4 mg/dL 1.6-2.6 [facility] ID Date Data Source [id number] 02/19/2020 08:57:13 AM [facility] Value Range Interpretation Code Description Data Gisela rce(s) Supporting Document(s) Phosphate [Mass/volume] in Serum or Plasma 2.8 mg/dL 2.5-4.5 [facility] ID Date Data Source [id number] 02/19/2020 08:22:22 AM [facility] Name Value Range Interpretation Code Description Data Gisela rce(s) Supporting Document(s) pH of Arterial blood 7.30 7.38-7.44 L [facility] Carbon dioxide [Partial pressure] in Arterial blood 38 mm[Hg] 35-40 [facility] Oxygen [Partial pressure] in Arterial blood 149 mmHg 95-100 H [facility] Oxygen saturation in Arterial blood 99 % 94-100 [facility] Base excess in Arterial blood by calculation [facility] Carbon dioxide, total [Moles/volume] in Arterial blood 19 mmol/L [facility] Oxygen/Inspired gas setting [Volume Fraction] Ventilator 0.50 [facility] ID Date Data Source [id number] 02/19/2020 09:23:04 AM [facility] Service Cmnt XXX-Imp : NoneMicroorganism XXX Cult : 2019 nCoV Real-Time RT-PCR: NOT DETECTEDTest performed using the [employer] Xpert Xpress SARS-CoV-2 assay. This test is only for use under the Food and Drug Administration's Emergency Use Authorization. Additional information is available on the following FDA websites for health care providers and patients. https://www.fda.gov/media/582540/download , https://www.fda.gov/media/577172/download Name Value Range Interpretation Code Description Data Gisela rce(s) Supporting Document(s) ID Date Data Source [id number] 02/19/2020 07:20:[address] [facility] Cmnt XXX-Imp : NoneMicroorganism XXX Cult : 2019 nCoV Real-Time RT-PCR: NOT DETECTEDTest performed using the [employer] Xpert Xpress SARS-CoV-2 assay. This test is only for use under the Food and Drug Administration's Emergency Use Authorization. Additional information is available on the following FDA websites for health care providers and patients. https://www.fda.gov/media/707995/download , https://www.fda.gov/media/063649/download Name Value Range Interpretation Code Description Data Gisela rce(s) Supporting Document(s) Microorganism identified in Unspecified specimen by [facility] This lab was ordered by [facility] and reported by [facility]. ID Date Data Source [id number] 02/19/2020 09:10:13 AM [facility] Name Value Range Interpretation Code Description Data Gisela rce(s) Supporting Document(s) Amphetamine [Presence] in Urine by Screen method Negative [facility] Benzodiazepines [Presence] in [facility] Cannabin[facility] [Presence] in Urine by Screen method Negative [facility] Benzoylecgonine [Presence] in Urine [facility] Methadone [Presence] in Urine by Screen method Negative [facility] Opiates [Presence] in Urine by Screen method Negative [facility] Oxycodone [Presence] in Urine by Screen method Negative [facility] Fentanyl+Norfentanyl [Presence] in Urine by Screen method Negative A [facility] (NOTE)Positive results are presumptive a nd unconfirmed;confirmatorytesting can be ordered at the [facility] at [phone] [facility] at [phone] within 5 days of collection. Service comment [facility] Results below the indicated cutoff (ng/m L), are reported as"Negative." Note: for medical purposes only; not valid for legalor employment testing. ID Date Data Source [id number] 02/19/2020 06:56:23 AM [facility] Name Value Range Interpretation Code Description Data Gisela rce(s) Supporting Document(s) 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/Y//l2KNs [file] [id number] ID Date Data Source [id number] 02/19/2020 06:20:30 AM EDT [facility] Name Value Range Interpretation Code Description Data Gisela e(s) Supporting Document(s) pH of Arterial blood 7.24 7.38-7.44 L [facility] Carbon dioxide [Partial pressure] in Arterial blood 43 mmHg 35-40 H [facility] Oxygen [Partial pressure] in Arterial blood 308 mmHg 95-100 H [facility] Base excess standard in Arterial blood by calculation [facility] Oxygen saturation Calculated from oxygen partial press ure in Arterial blood 100 % 94-100 [facility] Bicarbonate [Moles/volume] in Arterial blood 20 mmol/L [facility] Sodium [Moles/volume] in Blood 138 mmol/L 136-145 [facility] Potassium [Moles/volume] in Blood 4.0 mmol/L 3.4-5.1 [facility] Calcium.ionized [Moles/volume] in Blood 1.00 mmol/L 1.13-1.32 L [facility] Glucose [Mass/volume] in Blood 106 mg/dL 70-140 [facility] Hematocrit [Volume Fraction] of Blood 26 % 41-53 L [facility] Hemoglobin [Mass/volume] in Blood by calculation 8.8 g/dL 13.5-18.0 [facility] ID Date Data Source [id number] 02/19/2020 05:09:43 AM EDT [facility] Name Value Range Interpretation Code Description Data Gisela rce(s) Supporting Document(s) pH of Arterial blood 7.20 7.38-7.44 [facility] Carbon dioxide [Partial pressure] in Arterial blood 45 mmHg 35-40 H [facility] Oxygen [Partial pressure] in Arterial blood 317 mmHg 95-100 H [facility] Base excess standard in Arterial blood by calculation [facility] Oxygen saturation Calculated from oxygen partial press ure in Arterial blood 100 % 94-100 [facility] Bicarbonate [Moles/volume] in Arterial blood 19 mmol/L [facility] Sodium [Moles/volume] in Blood 136 mmol/L 136-145 [facility] Potassium [Moles/volume] in Blood 3.6 mmol/L 3.4-5.1 [facility] Calcium.ionized [Moles/volume] in Blood 1.00 mmol/L 1.13-1.32 L [facility] Glucose [Mass/volume] in Blood 105 mg/dL 70-140 [facility] Hematocrit [Volume Fraction] of Blood 31 % 41-53 [facility] Hemoglobin [Mass/volume] in Blood by calculation 10.5 g/dL 13.5-18.0 [facility] ID Date Data Source [id number] 02/19/2020 04:02:12 AM EDT [facility] XR CHEST FRONTAL ONLY [id number] RESULT - FINALInterpreted by:Yousuf Wolf MDAddendum BeginsSigned on ThuFeb 19, 2020 4:02 AM by Yousuf Wolf MDFindings were discussed with Dr. Sanju Cooper at 02/19/2020 4:01 AM EDT.THIS DOCUMENT HAS BEEN ELECTRONICALLY SIGNED BY YOUSUF WOLF MDAddendpaulina EndsPROCEDURE INFORMATION: Exam: XR Chest, 1 View Exam date and time: 02/19/2020 3:15 AM Age: 34 years old Clinical indication: Pain; Other: Trauma TECHNIQUE: Imaging protocol: XR of the chest Views: 1 view. COMPARISON: CR PORTABLE CHEST X-RAY 02/19/2020 1:12 AM FINDINGS: Tubes, catheters and devices: Endotracheal tube is seen in place with the tip in the left mainstem bronchus. It should be retracted approximately 6.5 centimetres. Lungs: Curvilinear density is seen at the left lung base. Pleural space: Unremarkable. No pleural effusion. No pneumothorax. Heart/Mediastinum: The patient is rotated, limiting evaluation of the mediastinum. The patient is rotated, limiting evaluation of the heart size. Bones/joints: Unremarkable. IMPRESSION: 1. Malpositioned endotracheal tube with the tip in the left mainstem bronchus. 2. Linear atelectasis at the left lung base. THIS DOCUMENT HAS BEEN ELECTRONICALLY SIGNED BY YOUSUF WOLF MDThis document has been electronically signed by Yousuf Wolf MD on 02/19/2020 3:48 AM Name Value Range Interpretation Code Description Data Gisela rce(s) Supporting Document(s) ID Date Data Source [id number] 02/19/2020 04:21:35 AM EDT [facility] Value Range Interpretation Code Description Data Gisela rce(s) Supporting Document(s) ABO and Rh group [Type] in Blood [facility] Blood bank comment [facility] ID Date Data Source [id number] 02/19/2020 03:26:43 AM EDT [facility] Value Range Interpretation Code Description Data Gisela rce(s) Supporting Document(s) Troponin I.cardiac [Mass/volume] in Blood 0.01 ng/mL 0.00-0.08 [facility] ID Date Data Source [id number] 02/19/2020 03:13:37 AM EDT [facility] Value Range Interpretation Code Description Data Gisela rce(s) Supporting Document(s) Sodium [Moles/volume] in Blood 137 mmol/L 136-145 [facility] Potassium [Moles/volume] in Blood 3.7 mmol/L 3.4-5.1 [facility] Chloride [Moles/volume] in Blood 102 mmol/L 98-107 [facility] Carbon dioxide, total [Moles/volume] in Blood 20 mmol/L 22-29 L [facility] Calcium.ionized [Moles/volume] in Blood 1.00 mmol/L 1.13-1.32 L [facility] Glucose [Mass/volume] in Blood 94 mg/dL 70-140 [facility] Urea nitrogen [Mass/volume] in Blood 7 mg/dL 6-20 [facility] Creatinine [Mass/volume] in Blood 0.9 mg/dL 0.70-1.20 [facility] Hematocrit [Volume Fraction] of Blood 36 % 41-53 L [facility] Hemoglobin [Mass/volume] in Blood by calculation 12.2 g/dL 13.5-18.0 L [facility] ID Date Data Source [id number] 02/19/2020 03:26:43 AM [facility] Name Value Range Interpretation Code Description Data Gisela rce(s) Supporting Document(s) pH of Venous blood 7.24 7.36-7.41 [facility] Carbon dioxide [Partial pressure] in Venous blood 47 mmHg 40-45 H [facility] Oxygen [Partial pressure] in Venous blood 29 mmHg [facility] Base excess standard in Venous blood by calculation [facility] Oxygen saturation Calculated from oxygen partial pressure in Venous blood 45 % 60-85 L [facility] Lactate [Moles/volume] in Venous blood 2.0 mmol/L 0.5-2.2 [facility] Bicarbonate [Moles/volume] in Venous blood 22 mmol/L [facility] ID Date Data Source [id number] 02/22/2020 07:23:25 AM [facility] Name Value Range Interpretation Code Description Data Gisela rce(s) Supporting Document(s) ABO and Rh group [Type] in Blood [facility] Blood group antibody screen [Presence] in Serum or Plasma [facility] Blood bank comment [facility] ID Date Data Source [id number] 02/20/2020 05:29:12 PM [facility] Name Value Range Interpretation Code Description Data Gisela rce(s) Supporting Document(s) Clotting time.intrinsic coagulation syst em activated of Blood by Thromboelastography 3.0 min 5.0-10.0 L [facility] Clot formation.intrinsic coagulation sys tem activated [Time] in Blood by Thromboelastography 1.2 min 1.0-3.0 [facility] Clot angle in Blood by Thromboelastography 73.9 deg 53.0-72.0 H [facility] Maximum clot firmness [Length] in Blood by Thromboelastograp hy 65.1 mm 50.0-71.0 [facility] Clot Lysis [Length fraction] in Blood by Thromboelastography --30 minutes post maximum clot amplitude 0.3 % 0-7.5 [facility] Coagulation specialist review of results [facility] A shortened R time and increased angle s uggest increased levels of coagulation factors and fibrinogen, likely due to an acute phase reaction. Although the results provide no indication for blood products, the patient's clinical condition and the results of other available hemostasis tests should also be evaluated.Ben Damian M.D., Ph.D., attending pathologist ID Date Data Source [id number] 02/19/2020 03:33:40 AM EDT [facility] Name Value Range Interpretation Code Description Data Gisela rce(s) Supporting Document(s) Leukocytes [#/volume] in Blood by Automated count 17.0 10*3/uL 4-10 H [facility] Erythrocytes [#/volume] in Blood by Automated count 4.32 10*6/uL 4.6- 6.1 L [facility] Hemoglobin [Mass/volume] in Blood 12.3 g/dL 13.5-18 L [facility] Hematocrit [Volume Fraction] of Blood by Automated count 36.8 % 4 1-53 L [facility] Erythrocyte mean corpuscular volume [Entitic volume] by Auto mated count 85.0 fL 80-96 [facility] Erythrocyte mean corpuscular hemoglobin [Entitic mass] by Automated count 28.4 pg 27-33 [facility] Erythrocyte mean corpuscular hemoglobin concentration [Mass/volume] by Automated count 33.4 g/dL 32.0-36.0 [facility] width [Ratio] by Automated count 12.9 % 11.5-14.5 [facility] Platelets [#/volume] in Blood by Automated count 220 10*3/uL 150-400 [facility] Differential cell count method - Blood [facility] Neutrophils/100 leukocytes in Blood by Automated count 87 % [facility] Lymphocytes/100 leukocytes in Blood by Automated count 7 % [facility] Monocytes/100 leukocytes in Blood by Automated count 6 % [facility] Eosinophils/100 leukocytes in Blood by Automated count 0 % [facility] Basophils/100 leukocytes in Blood by Automated count 0 % [facility] Neutrophils [#/volume] in Blood by Automated count 14.75 10*3/uL 1.8- 7.0 H [facility] Lymphocytes [#/volume] in Blood by Automated count 1.18 10*3/uL 1.2-4 .0 L [facility] Monocytes [#/volume] in Blood by Automated count 1.02 10*3/uL 0-0.8 H [facility] Eosinophils [#/volume] in Blood by Automated count 0.04 10*3/uL 0-0.5 [facility] Basophils [#/volume] in Blood by Automated count 0.02 10*3/uL 0-0.2 [facility] Nucleated erythrocytes/100 leukocytes [Ratio] in Blood by Automated count 0 /100{WBCs} 0-0 [facility] ID Date Data Source [id number] 02/19/2020 03:46:31 AM [facility] Name Value Range Interpretation Code Description Data Gisela rce(s) Supporting Document(s) Ethanol [Mass/volume] in Serum or Plasma 0.21 g/dl Negative A [facility] ID Date Data Source [id number] 02/19/2020 03:46:31 AM [facility] Name Value Range Interpretation Code Description Data Gisela rce(s) Supporting Document(s) Albumin [Mass/volume] in Serum or Plasma by Bromocresol green (BCG) dye binding method 3.3 g/dL 3.5-5.2 [facility] Bilirubin.total [Mass/volume] in Serum or Plasma 0.2 mg/dL <1.2 [facility] Calcium [Mass/volume] in Serum or Plasma 6.7 mg/dL 8.6-10.0 L [facility] Chloride [Moles/volume] in Serum or Plasma 104 mmol/L 98-107 [facility] Creatinine [Mass/volume] in Serum or Plasma 0.80 mg/dL 0.70-1.20 [facility] Glucose [Mass/volume] in Serum or Plasma 94 mg/dL 70-140 [facility] Alkaline phosphatase [Enzymatic activity/volume] in Serum or Plasma 92 U/L 40-129 [facility] Potassium [Moles/volume] in Serum or Plasma 3.6 mmol/L 3.4-5.1 [facility] Protein [Mass/volume] in Serum or Plasma 5.4 g/dL 6.4-8.3 L [facility] Sodium [Moles/volume] in Serum or Plasma 134 mmol/L 136-145 L [facility] Aspartate aminotransferase [Enzymatic activity/volume] in Serum or Plasma 30 U/L <40 [facility] Urea nitrogen [Mass/volume] in Serum or Plasma 7 mg/dL 6-20 [facility] Osmolality of Serum or Plasma by calculation 275 mosm/kg 275-300 [facility] Creatinine/Urea nitrogen [Mass Ratio] in Serum or Plasma 9 [facility] Bicarbonate [Moles/volume] in Serum 20 mmol/L 22-29 L [facility] Alanine aminotransferase [Enzymatic activity/volume] in Seru m or Plasma 20 U/L <41 [facility] Anion gap 3 in Serum or Plasma 10 mmol/L 8-15 [facility] Glomerular filtration rate/1.73 sq M pre dicted among non-blacks [Volume Rate/Area] in Serum or Plasma by Creatinine-based formula (MDRD) >6 0 [facility] Glomerular filtration rate/1.73 sq M pre dicted among blacks [Volume Rate/Area] in Serum or Plasma by Creatinine-based formula (MDRD) >60 [facility] ID Date Data Source [id number] 02/19/2020 03:47:47 AM [facility] Value Range Interpretation Code Description Data Gisela rce(s) Supporting Document(s) Fibrinogen [Mass/volume] in Platelet poor plasma by Coagulat ion assay 215 mg/dl 190-450 [facility] ID Date Data Source [id number] 02/19/2020 03:47:47 AM [facility] Value Range Interpretation Code Description Data Gisela rce(s) Supporting Document(s) Prothrombin time (PT) 14.6 s 12.5-14.9 [facility] INR in Platelet poor plasma by Coagulation assay 1.13 [facility] Routine intensity oral anticoagulation I NR is typically 2.0-3.0. Target INR must be clinically individualized. ID Date Data Source [id number] 02/19/2020 03:47:47 AM EDT [facility] Name Value Range Interpretation Code Description Data Gisela rce(s) Supporting Document(s) aPTT in Platelet poor plasma by Coagulation assay 24.2 s 24.0-33. 0 [facility] Procedure Social History Code Duration Value Status Description Data Source(s ) Smoking 08/31/2020 12:00:00 AM EST Current Smoker completed Curre nt Smoker eCW1 ([facility]) Smoking 07/30/2020 12:00:00 AM EST Current Smoker completed Curre nt Smoker eCW1 ([facility]) Smoking 03/12/2020 12:00:00 AM EDT Never Smoked A Pipe complet ed Never Smoked A Pipe MEDENT ([facility]) Alcohol intake 02/29/2020 12:00:00 AM EDT Current drinker of al cohol (finding) completed Current drinker of alcohol (finding) [facility] Cigarette pack-years 02/29/2020 12:00:00 AM EDT UNK [facility] Cigarettes smoked current (pack per day) - Reported 02/29/20 12:00:00 AM EDT UNK completed [facility] Smoking 02/29/2020 12:00:00 AM EDT Current every day smoker co mpleted Current every day smoker [facility] Alcohol intake 02/19/2020 12:00:00 AM EDT Current drinker of al cohol (finding) completed Current drinker of alcohol (finding) [facility] Cigarette pack-years 02/19/2020 12:00:00 AM EDT UNK [facility] Cigarettes smoked current (pack per day) - Reported 02/19/20 12:00:00 AM EDT UNK completed [facility] Smoking 02/19/2020 12:00:00 AM EDT Current every day smoker co mpleted Current every day smoker [facility] Vital Signs ID Date Data Source UNK Name Value Range Interpretation Code Description Data Source(s) Diastolic blood pressure 80 mm[Hg] 80 mm[Hg] eCW1 ([facility]) Systolic blood pressure 132 mm[Hg] 132 mm[Hg] e CW1 ([facility]) Body temperature 96.3 [degF] 96.3 [degF] eCW1 ( [facility]) Respiratory rate 18 /min 18 /min eCW1 ([facility]) Heart rate 106 /min 106 /min eCW1 ([facility]) Body mass index (BMI) [Ratio] 31.71 kg/m2 31.71 kg/m2 eCW1 ([facility]) Body height 70 [in_i] 70 [in_i] eCW1 ([facility]) Body weight 221 [lb_av] 221 [lb_av] eCW1 ([facility]ending sale to [facility]) Body surface area Derived from formula 2.13 m2 2.13 m2 MEDENT ([facility]) Body mass index (BMI) [Ratio] 27.1 kg/m2 27.1 k g/m2 MED[facility] ([facility]) Body height 72 [in_i] 72 [in_i] MEDENT ([facility]) 6'0" Body weight 90.720 kg 90.720 kg MEDENT ([facility]) Body weight 200.00 [lb_av] 200.00 [lb_av] MEDEN T ([facility]) Oxygen saturation in Arterial blood by Pulse oximetry 96 % 96 % MED[facility] ([facility]) Respiratory rate 16 /min 16 /min MEDENT ( [facility]) Body temperature 98.5 [degF] 98.5 [degF] MED[facility] ([facility]) Heart rate 95 /min 95 /min MEDENT ([facility]) Diastolic blood pressure 79 mm[Hg] 79 mm[Hg] MEDENT ([facility]) Systolic blood pressure 122 mm[Hg] 122 mm[Hg] M EDENT ([facility]) Oxygen saturation in Arterial blood by Pulse oximetry 98 % 98 % MEDENT ([facility]) Respiratory rate 14 /min 14 /min MED[facility] ( [facility]) Body temperature 97.7 [degF] 97.7 [facility]F] [facility] Heart rate 88 /min 88 /min MEDENT ([facility]) Diastolic blood pressure 76 mm[Hg] 76 mm[Hg] MEDENT ([facility]) Systolic blood pressure 121 mm[Hg] 121 mm[Hg] M [facility] ([facility]) ID Date Data Source [id number] 03/02/2020 01:22:02 PM [facility] Name Value Range Interpretation Code Description Data Source(s) WEIGHT RECORDED 209 lb 209 lb [facility] Body height Measured 71 in 71 in [facility] ID Date Data Source [id number] 02/24/2020 09:27:41 AM [facility] Name Value Range Interpretation Code Description Data Source(s) WEIGHT RECORDED 221 lb 221 lb [facility] Body height Measured 71.26 in 71.26 in [facility] Patient Treatment Plan of Care Planned Activity Planned Date Details Description Data Source (s) bacitracin 500 UNIT/GM EX ointment 02/24/2020 12:00:00 AM [facility] pantoprazole 4 MG/ML Injectable Solution 02/24/2020 12:00:00 AM [facility] POLYETHYLENE GLYCOL 3350 142 MG/ML Oral Solution 02/24/2020 12:00:0 0 AM [facility] bacitracin 500 UNIT/GM EX ointment 02/24/2020 12:00:00 AM [facility] Acetaminophen 325 MG Oral Tablet 02/23/2020 12:00:00 AM [facility] sennosides, FPC 8.6 MG Oral Tablet 02/23/2020 12:00:00 AM [facility] Heparin Sodium (Porcine) 5000 UNIT/ML Injection Soluti on 02/23/2020 12:00:00 AM [facility]spital Oxycodone Hydrochloride 5 MG Oral Tablet 02/23/2020 12:00:00 AM [facility] POLYETHYLENE GLYCOL 3350 142 MG/ML Oral Solution 02/21/2020 09:00:0 0 AM [facility] sennosides, FPC 8.6 MG Oral Tablet 02/20/2020 10:57:21 AM [facility] Bisacodyl 10 MG Rectal Suppository 02/20/2020 10:57:21 AM [facility] propofol (DIPRIVAN) 1000 MG/100ML infusion 02/19/2020 08:55:16 AM [facility]
[2020-09-10 23:20] LABS: BASO % 0.7 % (0.0-1.0); EOS # 0.1 10^3/uL (0.0-0.5); HEMATOCRIT 42.4 % (42.0-52.0); HEMOGLOBIN 13.7 g/dl (13.5-17.5); LYMPH # 2.3 10^3/uL (1.5-5.0); LYMPH % 39.9 % (24.0-44.0); MEAN CORPUSCULAR HEMOGLOBIN 27.5 pg (27.0-33.0); MEAN CORPUSCULAR HGB CONC 32.3 g/dl (32.0-36.5); MONO # 0.6 10^3/uL (0.0-0.8); MONO % 9.6 % (0.0-5.0); NEUTROPHILS # 2.8 10^3/uL (1.5-8.5); NEUTROPHILS % 47.5 % (36.0-66.0); PLATELET COUNT, AUTOMATED 293 10^3/uL (150-450); RED BLOOD COUNT 4.99 10^6/uL (4.30-6.10); WHITE BLOOD COUNT 5.9 10^3/uL (4.0-10.0)
--- NOTE | 2020-09-10 23:42 | REPVR ---
PROCEDURE INFORMATION: Exam: CT Head Without Contrast Exam date and time: 09/10/2020 11:05 PM Age: 35 years old Clinical indication: Dizziness; Prior surgery; Surgery date: 6+ months; Surgery type: Crani; Patient HX: HX brain injury; Additional info: Dizziness, HX or epidural bleed TECHNIQUE: Imaging protocol: Computed tomography of the head without contrast. Radiation optimization: All CT scans at this facility use at least one of these dose optimization techniques: automated exposure control; mA and/or kV adjustment per patient size (includes targeted exams where dose is matched to clinical indication); or iterative reconstruction. COMPARISON: CT Head without contrast 02/19/2020 12:24 AM FINDINGS: Brain: Normal. No hemorrhage. Unremarkable white matter. No mass effect. Cerebral ventricles: No ventriculomegaly. Bones/joints: Previous right pterional craniotomy. Paranasal sinuses: Visualized sinuses are unremarkable. No fluid levels. Mastoid air cells: Visualized mastoid air cells are well aerated. Soft tissues: Unremarkable. IMPRESSION: No acute intracranial abnormality. Electronically signed by: Noé Schmitt On 09/10/2020 23:41:57 PM
[2020-09-10 23:57] LABS: BLOOD UREA NITROGEN 13 MG/DL (7-18); CALCIUM LEVEL 9.1 MG/DL (8.5-10.1); CARBON DIOXIDE LEVEL 27 MEQ/L (21-32); CHLORIDE LEVEL 109 MEQ/L (98-107); CREATININE FOR GFR 0.99 MG/DL (0.70-1.30); GLOMERULAR FILTRATION RATE > 60.0 (>60); GLUCOSE, FASTING 109 MG/DL (70-100); POTASSIUM SERUM 4.4 MEQ/L (3.5-5.1); SODIUM LEVEL 141 MEQ/L (136-145); THYROID STIMULATING HORMONE < 0.005 uIU/ML (0.358-3.740)
[2020-09-11] MEDS ORDERED: MECLIZINE 25 MG TABLET PO ONE
[2020-09-11 00:26] LABS: FREE T4 1.34 NG/DL (0.76-1.46)
[2020-09-11] MEDS ORDERED: MECL12.590 PO (00:46)
--- OUTSIDE RECORDS SUMMARY | 2020-09-11 01:07 | CCD ---
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 ONLY [id number] Routine 02/19/2020 3:21 AM EDT 02/19/2020 07:21:33 AM EDT [facility] TROPONIN QUANTITATIVE POCT ISTAT TROPONIN Routine 02/19/2020 3:12 AM EDT 02/19/2020 07:12:00 AM [facility] EKG 12-LEAD - CMAXX REPORT EKG 12-LEAD - CMAXX REPORT 02/19/2020 3:11 AM EDT 02/19/2020 07:11:21 AM EDT [facility] EKG 12-LEAD - CMAXX REPORT EKG 12-LEAD - CMAXX REPORT 02/19/2020 3:11 AM EDT 02/19/2020 07:11:21 AM EDT [facility] EKG 12-LEAD EKG 12-LEAD STAT 02/19/2020 3:11 AM EDT 02/19/2020 07:11:21 AM [facility] BASIC METABOLIC PANEL CALCIUM IONIZED POCT ISTAT CHEM8 Routine 02/19/2020 3:11 AM EDT 02/19/2020 07:11:00 AM EDT [facility] BLOOD GASES ANY COMBINATION PH PCO2 PO2 CO2 HCO3 POCT ISTAT VBG /LAC Routine 02/19/2020 3:10 AM EDT 02/19/2020 07:10:00 AM [facility] COMPREHENSIVE METABOLIC PANEL METABOLIC PANEL, COMPREHENSIVE Ro utine 02/19/2020 2:45 AM EDT 02/19/2020 06:45:00 AM [facility] COAGULATION TIME ACTIVATED TEG KAOLIN Routine 02/19/2020 2:45 AM E DT 02/19/2020 06:45:00 AM [facility] THROMBOPLASTIN TIME PARTIAL PLASMA/WHOLE BLOOD PARTIA L THROMBOPLASTIN TIME (PTT) Routine 02/19/2020 2:45 AM EDT 02/19/2020 06:45 :00 AM [facility] ETHYL ALCOHOL LEVEL ETHYL ALCOHOL LEVEL Routine 02/19/2020 2:45 AM EDT 02/19/2020 06:45:00 AM [facility] PROTHROMBIN TIME PROTIME INR Routine 02/19/2020 2:45 AM EDT 02/19/2020 06:45:00 AM [facility] FIBRINOGEN ACTIVITY FIBRINOGEN LEVEL Routine 02/19/2020 2:45 AM ED T 02/19/2020 06:45:00 AM [facility] BLOOD COUNT COMPLETE AUTO&AUTO DIFRNTL WBC COUNT CBC AND DIFFER ENTIAL Routine 02/19/2020 2:45 AM EDT 02/19/2020 06:45:00 AM [facility] BLOOD TYPING ABO TYPE AND SCREEN Routine 02/19/2020 2:45 AM EDT 02/19/2020 06:45:00 AM [facility] RADEX FOREARM 2 VIEWS 07/18/2019 12:00:00 AM EST [facility] ([facility]) RADEX WRIST COMPLETE MINIMUM 3 VIEWS 07/18/2019 12:00: 00 AM EST [facility] ([facility]) Results ID Date Data Source [id number] 05/22/2020 11:59:00 AM EDT [facility] [address] [place] [address] PHONE: [phone] FAX: [phone] Name .................. : AMEE Mcintyre Acct Number.................. : [id number] ROOM. ................. : MR Number ................... : [id number] Stay type ............. : O/P Discharge Date......... ... : 05/18/20 Admit Date ......... : 05/18/20 Admit Phys .................... : RODNEY WALTON Date of ....... : 1985 Family Phys ................... : NON STAFF Phone .................. : [phone] Age ................................ : 34 Film# .................. .:[id number] Sex ................................. : M Unsigned transcriptions are preliminary reports and do not represent a medical or legal document CT HEAD W/O CONTRAST [id number] COMPLETE:05/18/20 14:14 [facility] [place] [id number] [place]REASON FOR PROCEDURE F/U EPIDURAL HEMORRHAGE CT [...] for: RODNEY GILES via fax Copy for: [address] [place] [address] Page 1 of 1 Name Value Range Interpretation Code Description Data Gisela rce(s) Supporting Document(s) ID Date Data Source [id number] 03/02/2020 01:22:02 PM T [facility] Name Value Range Interpretation Code Description Data Gisela rce(s) Supporting Document(s) Progress Note [facility] UJUNUw2fBiJWQgSi46/VMEpkNECdc5YwNWcnEMz1DXsmAMVeW2WxBGF9fC3aGMA1EMbZPxQkNsMeBkX4 lbm [file] MkFS5RVPb= ID Date Data Source [id number] 03/01/2020 11:24:34 AM EDT [facility] Name Value Range Interpretation Code Description Data Gisela rce(s) Supporting Document(s) Progress Note [facility] ODLBGq0vTnSGGoRa19/PVViqBJOhz4CzXDvcXOa6QVnxYYIlM7PdASS9rJ2vNYC1MLhPYdImHlImXvMl lbm [file] +tXgP11iUWjL24LwjovHVqWwQziKIAhwA5mFBj [file] PdTfY4DIbvHGX4UuG4BSCkNDB3BkHgUg8tOWJQSt6+ODzdmMPzyKncNRTDVdG5YPY2TTmuHZBSYc7Z ID Date Data Source [id number] 02/29/2020 04:48:51 PM EDT [facility] Name Value Range Interpretation Code Description Data Gisela rce(s) Supporting Document(s) Progress Note [facility] ZNFPEd2qRgPPLoBe95/TUWsqLLDjk0WvVSciZVd5GXxfTIKbH0IwMGR3dS1rLKL7SDtFFjUtVbAnKzOa lbm [file] TWLuCyJ1BSB3XtF0YWIoQBT9UXW7Dv9xJBDVFv0+LPvejSLjmKsjHBQRXcP2ARA6ZUyfNCHTTc0D ID Date Data Source [id number] 02/24/2020 09:27:41 AM EDT [facility] Name Value Range Interpretation Code Description Data Gisela rce(s) Supporting Document(s) Discharge Summary [facility] AKSCKz7mLgJHNmPe62/JQHkzGLIzh4BoRXxzJKg1QByyQYJiE6ZdUGD4zP7mDGG9VRsKQcFhGjQbUtW4 lbm [file] NjE+SU1dSOk+Qm7Sh1QhjpM7ruMnXCv5TeApJr8LBLNKH0BJDf== ID Date Data Source [id number] 02/22/2020 04:12:21 PM EDT [facility] FLUORO RAD EXAM SWALLOWING FUNCTION CINE WITH SPEECH PATH (FORMERLY MODIFIED BARIUM SWALLOW) [id number] RESULTInterpreted by:Malu Blank, [facility] NORTH[facility]IFIED BARIUM SWALLOW.INDICATION: 34 year Male with history [...] Date Data Source [id number] 02/22/2020 08:48[facility] : NoneMicroorganism XXX Cult : 2019 nCoV Real-Time RT-PCR: NOT DETECTEDTest performed using the Rheonix COVID-19 MDx Assay. This test is only for use under the Food and Drug Administration's Emergency Use Authorization.Additional information is available on the following FDA websites for health care providers and patients. https://www.fda.gov/YieldPlanet/423163/download , https://www .[employer].gov/YieldPlanet/337214/download Name Value Range Interpretation Code Description Data Gisela rce(s) Supporting Document(s) ID Date Data Source [id number] 02/22/2020 12:15:00 PM [facility] Cmnt XXX-Imp : NoneMicroorganism XXX Cult : 2019 nCoV Real-Time RT-PCR: NOT DETECTEDTest performed using the RheFrameBlastx COVID-19 MDx Assay. This test is only for use under the Food and Drug Administration's Emergency Use Authorization.Additional information is available on the following FDA websites for health care providers and patients. https://www.fda.gov/YieldPlanet/385169/download , https://www .[employer].gov/YieldPlanet/180542/download Name Value Range Interpretation Code Description Data Gisela rce(s) Supporting Document(s) Microorganism identified in Unspecified specimen by [facility] This lab was ordered by [facility] and reported by [facility]. ID Date Data Source [id number] 02/22/2020 06:03:11 AM [facility] Name Value Range Interpretation Code Description Data Gisela rce(s) Supporting Document(s) Osmolality of Serum or Plasma 296 mosm/kg 285-295 [facility] ID Date Data Source [id number] 02/22/2020 06:14:23 AM [facility] Name Value Range Interpretation Code Description Data Gisela rce(s) Supporting Document(s) Leukocytes [#/volume] in Blood by Automated count 10.9 10*3/uL 4-10 [facility] Erythrocytes [#/volume] in Blood by Automated count 2.89 10*6/uL 4.6- 6.1 L [facility] Hemoglobin [Mass/volume] in Blood 8.5 g/dL 13.5-18 L [facility] Hematocrit [Volume Fraction] of Blood by Automated count 24.9 % 4 1-53 L [facility] Erythrocyte mean corpuscular volume [Entitic volume] by Auto mated count 86.4 fL 80-96 [facility] Erythrocyte mean corpuscular hemoglobin [Entitic mass] by Automated count 29.4 pg 27-33 [facility] Erythrocyte mean corpuscular hemoglobin concentration [Mass/volume] by Automated count 34.0 g/dL 32.0-[facility] width [Ratio] by Automated count 13.6 % 11.5-14.5 [facility] Platelets [#/volume] in Blood by Automated count 160 10*3/uL 150-400 [facility] ID Date Data Source [id number] 02/22/2020 06:34:54 AM EDT [facility] Name Value Range Interpretation Code Description Data Gisela rce(s) Supporting Document(s) Bicarbonate [Moles/volume] in Serum 18 mmol/L 22-29 [facility] Chloride [Moles/volume] in Serum or Plasma 109 mmol/L 98-107 [facility] Creatinine [Mass/volume] in Serum or Plasma 0.53 mg/dL 0.70-1.20 [facility] Glucose [Mass/volume] in Serum or Plasma 95 mg/dL 70-140 [facility] Potassium [Moles/volume] in Serum or Plasma 3.7 mmol/L 3.4-5.1 [facility] Hemolyzed Sodium [Moles/volume] in Serum or Plasma 140 mmol/L 136-145 [facility] Urea nitrogen [Mass/volume] in Serum or Plasma 8 mg/dL 6-20 [facility] Anion gap 3 in Serum or Plasma 13 mmol/L 8-15 [facility] Osmolality of Serum or Plasma by calculation 288 mosm/kg 275-300 [facility] Creatinine/Urea nitrogen [Mass Ratio] in Serum or Plasma 15 [facility] Calcium [Mass/volume] in Serum or Plasma 7.7 mg/dL 8.6-10.0 [facility] Glomerular filtration rate/1.73 sq M pre dicted among non-blacks [Volume Rate/Area] in Serum or Plasma by Creatinine-based formula (MDRD) >6 0 [facility] Glomerular filtration rate/1.73 sq M pre dicted among blacks [Volume Rate/Area] in Serum or Plasma by Creatinine-based formula (MDRD) >60 [facility] ID Date Data Source [id number] 02/22/2020 06:34:54 AM EDT [facility] Name Value Range Interpretation Code Description Data Gisela rce(s) Supporting Document(s) Magnesium [Mass/volume] in Serum or Plasma 1.8 mg/dL 1.6-2.6 [facility] ID Date Data Source [id number] 02/22/2020 06:34:54 AM EDT [facility] Value Range Interpretation Code Description Data Gisela rce(s) Supporting Document(s) Phosphate [Mass/volume] in Serum or Plasma 2.1 mg/dL 2.5-4.5 [facility] ID Date Data Source [id number] 02/[facility]2020 [facility] Code Description Data Gisela rce(s) Supporting Document(s) Phosphate [Mass/volume] in Serum or Plasma 2.1 mg/dL 2.5-4.5 [facility] ID Date Data Source [id number] 02/21/2020 02:40:49 PM EDT [facility] Value Range Interpretation Code Description Data Gisela rce(s) Supporting Document(s) [facility] STHEBa4mQuHJKoCp86/OBEsqOJEeg1GdMHtsJTk9JNswAKQuJ0IwEZU6eL2nMJG7NJkVMpHzBnAsMcA1 lbm [file] FYQEqV/75T09XaGN1f/q8+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 [file] Qxp9YcFlQltvW7B7AsEhKX3VAw5UImV7KAY0nWPcWr7LKbDxHsWWGoPfKL9LKXt= ID Date Data Source [id number] 02/21/2020 06:15:09 AM [facility] Name Value Range Interpretation Code Description Data Gisela rce(s) Supporting Document(s) Leukocytes [#/volume] in Blood by Automated count 10.7 10*3/uL 4-10 [facility] Erythrocytes [#/volume] in Blood by Automated count 3.03 10*6/uL 4.6- 6.1 [facility] Hemoglobin [Mass/volume] in Blood 9.0 g/dL 13.5-18 [facility] Hematocrit [Volume Fraction] of Blood by Automated count 26.0 % 4 1-53 [facility] Erythrocyte mean corpuscular volume [Entitic volume] by Auto mated count 85.7 fL 80-96 [facility] Erythrocyte mean corpuscular hemoglobin [Entitic mass] by Automated count 29.6 pg 27-33 [facility] Erythrocyte mean corpuscular hemoglobin concentration [Mass/volume] by Automated count 34.5 g/dL 32.0-36.0 [facility] width [Ratio] by Automated count 13.3 % 11.5-14.5 [facility] Platelets [#/volume] in Blood by Automated count 134 10*3/uL 150-400 [facility] ID Date Data Source [id number] 02/21/2020 06:20:22 AM [facility] Name Value Range Interpretation Code Description Data Gisela rce(s) Supporting Document(s) Osmolality of Serum or Plasma 290 mosm/kg 285-295 [facility] ID Date Data Source [id number] 02/21/2020 06:37:[facility] Interpretation Code Description Data Gisela rce(s) Supporting Document(s) Bicarbonate [Moles/volume] in Serum 20 mmol/L 22-29 [facility] Chloride [Moles/volume] in Serum or Plasma 104 mmol/L 98-107 [facility] Creatinine [Mass/volume] in Serum or Plasma 0.53 mg/dL 0.70-1.20 [facility] Glucose [Mass/volume] in Serum or Plasma 117 mg/dL 70-140 [facility] Potassium [Moles/volume] in Serum or Plasma 4.2 mmol/L 3.4-5.1 [facility] Sodium [Moles/volume] in Serum or Plasma 135 mmol/L 136-145 [facility] Urea nitrogen [Mass/volume] in Serum or Plasma 9 mg/dL 6-20 [facility] Anion gap 3 in Serum or Plasma 11 mmol/L 8-15 [facility] Osmolality of Serum or Plasma by calculation 280 mosm/kg 275-300 [facility] Creatinine/Urea nitrogen [Mass Ratio] in Serum or Plasma 17 [facility] Calcium [Mass/volume] in Serum or Plasma 8.1 mg/dL 8.6-10.0 [facility] Glomerular filtration rate/1.73 sq M pre dicted among non-blacks [Volume Rate/Area] in Serum or Plasma by Creatinine-based formula (MDRD) >6 0 [facility] Glomerular filtration rate/1.73 sq M pre dicted among blacks [Volume Rate/Area] in Serum or Plasma by Creatinine-based formula (MDRD) >60 [facility] ID Date Data Source [id number] 02/21/2020 06:37:52 AM [facility] Name Value Range Interpretation Code Description Data Gisela rce(s) Supporting Document(s) Magnesium [Mass/volume] in Serum or Plasma 2.0 mg/dL 1.6-2.6 [facility] ID Date Data Source [id number] 02/21/2020 06:37:52 AM [facility] Value Range Interpretation Code Description Data Gisela rce(s) Supporting Document(s) Phosphate [Mass/volume] in Serum or Plasma 1.9 mg/dL 2.5-4.5 [facility] ID Date Data Source [id number] 02/21/2020 03:07:57 AM [facility] Value Range Interpretation Code Description Data Gisela rce(s) Supporting Document(s) Vancomycin [Mass/volume] in Serum or Plasma --trough 10.5 ug/mL 10.0- 20.0 [facility] ID Date Data Source [id number] 02/21/2020 01:29:07 AM [facility] Value Range Interpretation Code Description Data Gisela rce(s) Supporting Document(s) Phosphate [Mass/volume] in Serum or Plasma 2.2 mg/dL 2.5-4.5 [facility] ID Date Data Source [id number] 02/20/2020 10:04:34 PM [facility] Value Range Interpretation Code Description Data Gisela rce(s) Supporting Document(s) ED Provider Note [facility] RURYTy4cFbQJPhAi08/JSMegSMQzs2RlHRfqJVv2ZBgsOGKcK6SuEMP2oK1bJPI4IPgLYoBbHmCyRhYt [facility] [file] +XFPYWQWdq3TXzGYGWLXOpmFJRj4jgzWNB+AdH+hand shaker [file] ICAgICAgICAgICAgICAgICAgICAgICAgICAgICAgICAgICAgICAgICAgICAgICAgICAgICAgICAgICAg ICAgICAgICAgICAgICAgICAgICAgDQogICAgICAgIC AgICAgICAgICAgICAgICAgICAgICAgICAgICAgICAgICAgICAgICAgICAgICAgICAgICAgICAgICAgIC AgICAgICAgICAgICAgICAgICAgICAgICAgICAgICAgDQogICAgICAgICAgICAgICAgICAgICAgICAgIC AgICAgICAgICAgICAgICAgICAgICAgICAgICAgICAg ICAgICAgICAgICAgICAgICAgICAgICAgICAgICAgICAgICAgICAgICAgDQogICAgICAgICAgICAgICAg ICAgICAgICAgICAgICAgICAgICAgICAgICAgICAgICAgICAgICAgICAgICAgICAgICAgICAgICAgICAg ICAgICAgICAgICAgICAgICAgICAgICAgDQogICAgIC AgICAgICAgICAgICAgICAgICAgICAgICAgICAgICAgICAgICAgICAgICAgICAgICAgICAgICAgICAgIC AgICAgICAgICAgICAgICAgICAgICAgICAgICAgICAgICAgDQogICAgICAgICAgICAgICAgICAgICAgIC AgICAgICAgICAgICAgICAgICAgICAgICAgICAgICAg ICAgICAgICAgICAgICAgICAgICAgICAgICAgICAgICAgICAgICAgICAgICAgDQogICAgICAgICAgICAg ICAgICAgICAgICAgICAgICAgICAgICAgICAgICAgICAgICAgICAgICAgICAgICAgICAgICAgICAgICAg ICAgICAgICAgICAgICAgICAgICAgICAgICAgDQogIC AgICAgICAgICAgICAgICAgICAgICAgICAgICAgICAgICAgICAgICAgICAgICAgICAgICAgICAgICAgIC AgICAgICAgICAgICAgICAgICAgICAgICAgICAgICAgICAgICAgDQogICAgICAgICAgICAgICAgICAgIC AgICAgICAgICAgICAgICAgICAgICAgICAgICAgICAg ICAgICAgICAgICAgICAgICAgICAgICAgICAgICAgICAgICAgICAgICAgICAgICAgDQogICAgICAgICAg ICAgICAgICAgICAgICAgICAgICAgICAgICAgICAgICAgICAgICAgICAgICAgICAgICAgICAgICAgICAg ICAgICAgICAgICAgICAgICAgICAgICAgICAgICAgDQ c9K3idHXGcKFKpGW1sIFv0At8+GDsUZuNeVCT8wyMedN1FSU7wn0QzJHzuSSDgp4TaDVt5OW8TXSNeXS ekVH6EOHbcbh6IOUOoUXNzmSMUr2usJaSfASY7PPCdQvbnWJ4PBJOsP3solfScCFYaLUYZNJtxRINLNK taSHWBABCbDXTuYwVvBeXxJYWiDLPaGDAKMXU1DNRn SoZoYXxmMO6Fo6KiaYW4DJv+Ui5OLJ8sx9GkKLajHXOwCW6ocd2XGUwUDzLhA1JgdyC2RSR7INJdPw5R EUGbBNLstUA4PDJqKTHDVzMmC5VnrS42XZuHTf6+WNblgfGoCfiPTaJ2DTPqj8TwMXo2KI4DMFVeVCq9 vGEvQYHwYLWgadhsBHPwDd18SQKpItqwB5nwvDG5pE HnUCMpA479oGLithdwGSQgTOFhHi2kXr1bNSTrYFSqFnRwQUALBL0WIGZnPMWvaHYkWATaJMBKHO3WXS ubBOJ4ZrKqsdRugMEbGJdwUV1YROJekjDqMmHhJTGOQPleDB0EXYn2PUX7YYJsZd9VIo9SWdZdII2guu 9GAtUjABLrNluCAny2WZgsPL8QlFHcLHpNIJCGxm78 dJYawtIQw5PnwdJwzEYQkARrx9ClLA0vNoURfsR7e5GrZTTCWCXpqAZ2XeLlBeLdZlQnURF1FyPfTZ9s FXjyYW2UGNL7IUamRYAzGXCBUJ4DEAkiTXI9TkFizyCknGKsINkzSG1DXCEokoUvFrOfMKLTSGbjAM2J xgS5TSL2EHQeIk8TXEVpRcG5bVDuUuSfSXPECe8+DQ gwsyQhJboKBhN1SVTfr9KzGWf7NI2KOQKxAZu7xDMvFPInWf53EBFfYcphSQ8vZESzKYTFVYC9ESNTWu TwUUKjXw4jFc4hBFHeOBA5KfWyPKWTYM9XTJZiHHEhkWZzVZH0KTOfBbPuARdbCKPkMRW8AO90hGveAJ 4NUXXlTKUqRL21HJB7RAOqWs5ADXUvIOPgquKhSjTw NYMLBvOsP64ibSSwZjgpCGCVWZf+Yc0XBE6ar3SmUSevJAQhDN6tkx6IUMbAOfDsS1AbzFqiEFRDFU0b eYAyBSA2IOWunXEkBIWCLHOnmgGzjZovLGQup3YqVKBXIyLrfQP5KtAtFsCdEtPbWXH4SPbcBI0wDTkp DI2YIFK0JPzhQDyoEPVKNK2EITntUSO2EbXonfOapJ GhYFyqXE0IKJOrefJjVsDiYXUGGWouRC0EneA8HDT8WQYmZv5JIIOoKcH7lQJuCWWzQERFCo1+DQplbm OzFmeAMqL6JXVxz2VqHZx3JH6PPEInOKd0lXIcAGTfYq21BHUpGtzxEbOcbCPzFDOONYGfmnJtRKKLXS P7CIydLQXnOcGqTGEeXvksJCIJXVjRTaJtQ3Dfj0Sb ZfSgHnQvGUAuC9bMZuIcXLI7NuOlbIarMK6KYwExW9GnpiTitSSxLPXeSNJEVoGiO3FfUMIhCtqfDOEB ZZllWF7KPNp1GZUxKXEiZb9KTo2TJiWaHH6uzl9KPVOoGBWgOhsZDjw2XAswEE6MePRzAYzSGXQPb8Vo xqJbxAXAvzV4eVPZVNhttoXqocfyCj0sZAFrVl3qJd 7ePXLfYJOzUuFlYRWIWD0EGMIjHIRbuEUyXCT5UBVkZcRmYPuxWLPeEZWtFQ05qLuiKI0UAFWjVQKfGA 79PQM0DKBbZs3LZKGfRHEpoiWoOYCpPQXKJyVrP28krOIpDGHwKZRJDPm+Ts7IES3mk4EiKIb0GYUyTO 2kgb0DAXvGAaGnE2AthUovOWSWEX4kgHOyNCO8NC5l cNQgxIFvBINECD93b2XkPMGPHXL1JBawDKZuVwHrYBSeBraaQRCCDKfMGwCuL5Pnj2JnFxGnKxUdHANm P4oSGkDmKER8XROxhRgnMX7AEnRnJ8QcntJwiWXeADUjUGDJAmGcZ7NkZXLvKCFrLYAYXQp+Kj8LSG3d v6GxUZu9TsKqOV5kks2QROyJOoEsX9E2gSBoK2Q2VE pfCt5ICJTuOIEaKsElQFSLHHzpCC8CBQ6envO1DD4YgAIaTLFrZOEguRZjKIl1J40taTYbKHqmWS2YUX A+Neva+Zj2HANVxNCTgDLBlFiPqPLIOMpEaR3BuX5DSf8BmK5JaQI99cUzgyoUuTLjwYA1WNQ3kXMGaSF JVDM6ZxAYzsO0evrMtSJRmMKCZXxHbE00zoUQuSRZd UKMtIOToPk4VZAIoY8RvtbIgxUhjnhWjFVAiXQQEQV6ZCHjhwyZxrSRusXliIJ71aIaeUR9ZEs1CGlXl RL3ppw4LyAQiSz1QVIB4Vg4LRQQgTPOfKLEeNAL8ECEeMuOmOKwpRBXpLREcBZL4QVRkXYOtLD4EWyHg XXSlVmSuKnVvWIGbYSFqdn0NUBAbEUYmMNJ9RYWwUS ObFFXyGOlgILZuLCGcTYR2OAUvCTRdJF1DMhYfASZgVQE1RQKcUAOgCGTydx8AXIFuMNKrCuHaKeTxMT HmQYLeWYcrPPYiHDC0CGT7AWGfZAPxHO6LKxUlXRSxCHK2HSvqNLSkOABaya6CFLDcXEFoDJP7FuQvGM QhQFXgMQexCJBvGOK6MvJrJVPpBTSyZM1YVzEzBSKg CYJ2NtHdAHHeGMYypo8QZXLjBVPgZGB3EpOxUQPtQOXzPOyiMUIxSWUaPPA0CNTxENDaPU5JNkShUQTm ESBqVyMqIMFeAXEoor7QNCNgPPYaCcKxGwIfROGuNGZiOSuxDYXmFLM4DaK8YRQaDMTtFY1SLlSwSNKh CWf6PbTsKJHaRHQnix4RTQChHYBnPBd4ExLxVPPmLC AxTKnaAXPePHEqLMO4WRHdEZLlDR5DOqNxLFZiSpSiFuFdYJXuDJOteh4GVZAoGVTlMYXwXvPmRBPgGR AiGArlWBNwSRRaYpS2AWJmWFBvBW3VGyEoCHWoJzI4QymdZJJrOCAqod5WNMSaIVSrQgA5SjRgNZUkRI ZiIRpvKDPkTPF7AOb5VWFzWWCbHJ6FLzEiKYOtOkW6 QUNgBMEyICGnst1ANEHlBSWzOOHgJOLiEESuUAWcGHuiHQMpIGA3MHzqNYUiMDRlAO1FSoDnOIAaIcZo OFAnODWoALYoyh4BPTRfEGGlNCs8OYHtJSOgKQEcBXaxJILtGJZ6SOOkXDUvTDYtPP5LMcHkTGHhUjAa MJVmOGTyIILpdk6BGBUnOFMgDwhoNZMtAGWqAGJjVB afFBTnMHM2FwD6ETXeJTGmTR4AZtCgWEBkFscoFgxnEBIlWFWyci7AGSVbJOVqBAX2PDIbAUViINSfUP hnDFGtIAZ3DhUlIEXmQSCtSV3FKjYlMCGoRlk0DXJiLUPhFQZhle3YSRYzXWTgXRKnHOHdYMSoXYNhVJ rlMJYhDRR2VQs4MLUhNBBcFN8YRxJlUJYeQrxcLKQx SPFoOXAekc4BHCExVFAgZFHdOSIlTNQwNFHbXCu7csXvoFFpZYk5GF6OH9JvweHmQORNJj8Ap189EURv YSMjDo6BH1mgMq1vBRMjIXCNDp5DPKa8VRX9Yjv3TPD0OGGrIODoEwqkHUZfOITwJMvySPU9C6D+IDxl FLnzLkawKEXmEzO6Z4TfVHF2NlUcNCJcFAZ3Jmm1Qe 9pNOZLUo0+MAvobRHpyFkuJWTZGcH4AiQ3PLwqVMZYAt2M ID Date Data Source [id number] 02/20/2020 07:46:57 PM EDT [facility] Name Value Range Interpretation Code Description Data Gisela rce(s) Supporting Document(s) [facility] ECBZJd2eTxIFAsSs38/LKCqiGMZyi0XrELqoSSd6QEgsJAUzE0VwTLN6qO6pKFF7IGyRFoJbKnKjWiKm lbm [file] ICAgICAgICAgICAgICAgICAgICAgICAgICAgICAgICAgICAgICAgICAgICAgICAgICAgICAgICAgICAg ICAgICAgICAgICAgICAgICAgICAgICAgICAgDQogIC AgICAgICAgICAgICAgICAgICAgICAgICAgICAgICAgICAgICAgICAgICAgICAgICAgICAgICAgICAgIC AgICAgICAgICAgICAgICAgICAgICAgICAgICAgICAgICAgICAgDQogICAgICAgICAgICAgICAgICAgIC AgICAgICAgICAgICAgICAgICAgICAgICAgICAgICAg ICAgICAgICAgICAgICAgICAgICAgICAgICAgICAgICAgICAgICAgICAgICAgICAgDQogICAgICAgICAg ICAgICAgICAgICAgICAgICAgICAgICAgICAgICAgICAgICAgICAgICAgICAgICAgICAgICAgICAgICAg ICAgICAgICAgICAgICAgICAgICAgICAgICAgICAgDQ ogICAgICAgICAgICAgICAgICAgICAgICAgICAgICAgICAgICAgICAgICAgICAgICAgICAgICAgICAgIC AgICAgICAgICAgICAgICAgICAgICAgICAgICAgICAgICAgICAgICAgDQogICAgICAgICAgICAgICAgIC AgICAgICAgICAgICAgICAgICAgICAgICAgICAgICAg ICAgICAgICAgICAgICAgICAgICAgICAgICAgICAgICAgICAgICAgICAgICAgICAgICAgDQogICAgICAg ICAgICAgICAgICAgICAgICAgICAgICAgICAgICAgICAgICAgICAgICAgICAgICAgICAgICAgICAgICAg ICAgICAgICAgICAgICAgICAgICAgICAgICAgICAgIC AgDQogICAgICAgICAgICAgICAgICAgICAgICAgICAgICAgICAgICAgICAgICAgICAgICAgICAgICAgIC AgICAgICAgICAgICAgICAgICAgICAgICAgICAgICAgICAgICAgICAgICAgDQogICAgICAgICAgICAgIC AgICAgICAgICAgICAgICAgICAgICAgICAgICAgICAg ICAgICAgICAgICAgICAgICAgICAgICAgICAgICAgICAgICAgICAgICAgICAgICAgICAgICAgDQogICAg ICAgICAgICAgICAgICAgICAgICAgICAgICAgICAgICAgICAgICAgICAgICAgICAgICAgICAgICAgICAg ICAgICAgICAgICAgICAgICAgICAgICAgICAgICAgIC CyNQMwFSk6J1biTCSsXRFcXM9dBGp4Qp7+WDlXYvOvPDO6urPooY5QXR0oc4EtRIfdFPMvl1DtDTb3TF 5VGPLpWDxfNC2EAZlaxy5DVOKjSRDsbBIXo9uzYpRqPBW5KMDuYoalTA8FYQKuX2xfdhLkVEOaYNBUJO gnOZMTOIoyMOSHRLUeFXWkQvJfATbbGW3Lw1BerYB7 DQo+Mf9UQJ3bv5AmOLueXHDbWH2efk5VLAwSZfArI8EpghD8WNEpCQCmPb2NEQVhTSJziUExIATyDOQI WcArD0NkzO01HFTVDg0+VHunaeYnIxtMFpTpOVMav2UzIPg9YO3JFWKjQLv6yTTeN63ag6LnnWYpDlwh Qi9oJJ8qYUO5LPryVR3RDNG2AInbCGMlFmQyCWMuJf isCBUNSIhSMiIhW4Bvp5EsPcK4JCLyLmUiWPefXMRgWjC4FI18sIqvTJ5AXSQjXFAkAQ33RMZ7NHOjPa 4FXk8NLcYzXW9rpa8JJABwYFKzGlwQHvt4OPtfEX5VpXGcUI1Rgj9gtJOkE7ZxkEhcBVHiPMlapfXeHo 6xZPDzOQksMKOoQY5pI0rsK7yyB3LbDYYEIyChV1Zb I9CdBvp0BSM4WOZhWLTzCYBdUMINAjIuZ3TkOKzcCiPvVQVIFE6FUunsoUD7qMY9Sq98y8fvMK5bf17m T41vJ3AekF6acS0rs1JdZ5QmaTK0WQO6SWQzYTzft0kquJDkzjrpjGP3TQPTgXX4KpGhEZTDZOrlGRVt wQhlrHekXQo2TrtoAeGhuY4wDwegNy7zXNf+Pg0KZW 6cs9ShTDsyTYNtRD4xib8GSDpXZhGnJ1T1hNStU0I8PFsaTt8CRMOmJDGyOqspZJZCKIrdYD1AET6oes B2RG1EpCTzUXWeCBOxzTQyACe9V02xbUChOPnyLY0EHEU+Neva+Gg6MREYbMIUjKSXrWoZtRXVDSiPuJ7 ZaW8YJb7XmW9YcFX13wMcjvhWnKImsGE0ZHG8zXCPr MEZWMZ0XvUHjrD7pgfMjHIEaUIHYPlOcY25caYFqTNVoLIW9LJVcFx6WLIToP4YrkbJzbHlkldFeWQJt RCHFIT0HITedpsMzrYQzeHmkLH13jLmwGX8DJa6ZSpVoGJ8prj5VcEHxJn8BPNEcYe0SBGCwSIEzJYRz OWW2XTKnSjXvLMinMNUlABCbNHL1BUCnOWLzJB1SXf QxDMYnXgprAYGcPLYvRDEuai9ULJFcTWBmRWt4WGMjHLVbOJInEBdrOJEuNEFiWGU9MAXeRWXfMN8ZIr HiFOXtTZRhGIVrMTHgXNXihq1HSDUaILXsKmSqECSlJGChJHAsZHroJFEqXGX6Wjf6KDWoAYMjOD1ZIc JqKNRwYVE0ULcfTZXyAVLqrq5QBJNaAZQxXRowKKAu AVLkWYQdPVltOUZvPFG9EIJ9PZJuYYHcSE8UFkUvMKUtKBC1YJrzHGRsLESfkr8UIAMjMBFkBGVpZfOs RDLkTTTkQMcvJGSzJPDsNHYpZBBnOKTxKK2KHrOzRZUpXUK4BdBdDVNnFZMiat3DXGVjHIRcFwZ0VWNk OKGrCUVfWNqhSNCrBPQaFfApHHYyCCCzYV3SWkXoCU ReYWXaANKtTHJmTAKlpt1JNPYdHQYlRzSmLgSgHMGgIWFgPXdwUVYzWQAhQGnkBOSoINDsEK9VReWsJT GbVRM2ZBFbIYTsGJBdkc2RHWRrQAZfLRa2HYVjQOPhTDOeMUolSAGhDSE5WYOrMMFdUPWlKV3WBaQrCG MjUvMdWDBtTFWeOFDsnb3EVTQnZSWiEmBwVMAjMJSn VEUnYNjaPXYwHVU6JAKbBBCwTVBdOC8HArQoAZKfKcguZFKlHJIbSYQnxn4DYXZeXYKrYnOeHAHsYLUz VGKkQFpyIYKcGCA1FxP9JLQoHGQfWW5EAcBxWKXkBkfpNNNfJAFhZGHrht5WFDSnKMZsSNI5RbFcIVFi YMNwHMhcREXmPEA2CLG3YHExCWNmIG6RYxFgXNtvYW KCGbx7GKepP1u0KVRoTp5ZG3Xjz5GuIkFyNISTRHboHI2dfeVjOPFlKs7VE9tKZtk9RiioOfN2UrXmAL SvSDT2QUSqPYFcSeEfRBEgZXR1PC8pSExuS4PcDzwdTIS0NCL7NuwuCGQ5GyB9YsE6QbP4TDR1JzLfXY 4CSd2RIbT9ZQX5tEVdWb0WKwx9FYYNXrRxKV8WFUn= ID Date Data Source [id number] 02/20/2020 06:54:46 PM [facility] Name Value Range Interpretation Code Description Data Gisela rce(s) Supporting Document(s) Leukocytes [#/volume] in Blood by Automated count 14.0 10*3/uL 4-10 [facility] Erythrocytes [#/volume] in Blood by Automated count 3.14 10*6/uL 4.6- 6.1 L [facility] Hemoglobin [Mass/volume] in Blood 9.3 g/dL 13.5-18 L [facility] Hematocrit [Volume Fraction] of Blood by Automated count 26.9 % 4 1-53 L [facility] Erythrocyte mean corpuscular volume [Entitic volume] by Auto mated count 85.7 fL 80-96 [facility] Erythrocyte mean corpuscular hemoglobin [Entitic mass] by Automated count 29.5 pg 27-33 [facility] Erythrocyte mean corpuscular hemoglobin concentration [Mass/volume] by Automated count 34.4 g/dL 32.0-[facility] width [Ratio] by Automated count 13.4 % 11.5-14.5 [facility] Platelets [#/volume] in Blood by Automated count 141 10*3/uL 150-400 L [facility] ID Date Data Source [id number] 02/20/2020 12:59:15 PM [facility] Name Value Range Interpretation Code Description Data Gisela rce(s) Supporting Document(s) Operative Note [facility] NKSEWl4bChZJPcGk91/CCKmhXYMzq4JsXUvhOAf5AZpgNTLaS8NqBAI0xQ5dJKD1BXeHMcLmHrSePeTm lbm [file] JyFlDpZQ1YPr1GWgM3NEJ5xSOgJd4PVUB8NTdCQaMtKP0QGBb= ID Date Data Source [id number] 02/20/2020 12:54:13 PM EDT [facility] Name Value Range Interpretation Code Description Data Gisela e(s) Supporting Document(s) History and Physical [facility] KVUXSi3lPqADEtKh31/BFPdwZPTnz3RuXAyfCDo3ZRjfBVRmU6IiLYA4sE8uMKH0RPuKJxPiStHrZoYn lbm [file] ID Date Data Source [id number] 02/20/2020 09:59:37 AM EDT [facility] CT HEAD WITHOUT CONTRAST [id number] RESU LTInterpreted by:Jerri Meneses, SHARIFALINICAL INDICATION: 34-year-old [...] rce(s) Supporting Document(s) ID Date Data Source [id number] 02/20/2020 05:36:10 AM [facility] Name Value Range Interpretation Code Description Data Gisela rce(s) Supporting Document(s) pH of Arterial blood 7.36 7.38-7.44 L [facility] Carbon dioxide [Partial pressure] in Arterial blood 42 mm[Hg] 35-40 [facility] Oxygen [Partial pressure] in Arterial blood 118 mmHg 95-100 [facility] Oxygen saturation in Arterial blood 99 % 94-100 [facility] Base excess in Arterial blood by calculation [facility] Carbon dioxide, total [Moles/volume] in Arterial blood 24 mmol/L [facility] Oxygen/Inspired gas setting [Volume Fraction] Ventilator 0.50 [facility] ID Date Data Source [id number] 02/20/2020 04:15:19 AM [facility] XR CHEST FRONTAL ONLY [id number] RESULTI nterpreted by:Lenora Crump [facility]: Exam: XR Chest, 1 [...] pneumothorax is evident.IMPRESSION: Overall, no significant interval change manager the past 10 hours.Tracheostomy tube remains in place.Hazy, poorly defined opacity again seen below the right hilum (perhaps fissural fluid, at least in part).THIS DOCUMENT HAS BEEN ELECTRONICALLY SIGNED BY LENORA CRUMP MDThis document has been electronically signed by Lenora Crump MD on 02/20/2020 4:15 AM Name Value Range Interpretation Code Description Data Gisela rce(s) Supporting Document(s) ID Date Data Source [id number] 02/20/2020 04:36:57 AM [facility] Name Value Range Interpretation Code Description Data Gisela rce(s) Supporting Document(s) Leukocytes [#/volume] in Blood by Automated count 14.6 10*3/uL 4-10 [facility] Erythrocytes [#/volume] in Blood by Automated count 2.76 10*6/uL 4.6- 6.1 L [facility] Hemoglobin [Mass/volume] in Blood 7.8 g/dL 13.5-18 L [facility] Hematocrit [Volume Fraction] of Blood by Automated count 23.3 % 4 1-53 L [facility] Erythrocyte mean corpuscular volume [Entitic volume] by Auto mated count 84.6 fL 80-96 [facility] Erythrocyte mean corpuscular hemoglobin [Entitic mass] by Automated count 28.4 pg 27-33 [facility] Erythrocyte mean corpuscular hemoglobin concentration [Mass/volume] by Automated count 33.5 g/dL 32.0-36.[facility] distribution width [Ratio] by Automated count 13.2 % 11.5-14.5 [facility] Platelets [#/volume] in Blood by Automated count 184 10*3/uL 150-400 [facility] ID Date Data Source [id number] 02/20/2020 04:37:40 AM EDT [facility] Name Value Range Interpretation Code Description Data Gisela rce(s) Supporting Document(s) Osmolality of Serum or Plasma 285 mosm/kg 285-295 [facility] ID Date Data Source [id number] 02/20/2020 05:00:39 AM EDT [facility] Name Value Range Interpretation Code Description Data Gisela rce(s) Supporting Document(s) Bicarbonate [Moles/volume] in Serum 22 mmol/L 22-29 [facility] Chloride [Moles/volume] in Serum or Plasma 105 mmol/L 98-107 [facility] Creatinine [Mass/volume] in Serum or Plasma 0.66 mg/dL 0.70-1.20 L [facility] Glucose [Mass/volume] in Serum or Plasma 105 mg/dL 70-140 [facility] Potassium [Moles/volume] in Serum or Plasma 4.5 mmol/L 3.4-5.1 [facility] Sodium [Moles/volume] in Serum or Plasma 134 mmol/L 136-145 L [facility] Urea nitrogen [Mass/volume] in Serum or Plasma 9 mg/dL 6-20 [facility] Anion gap 3 in Serum or Plasma 8 mmol/L 8-15 [facility] Osmolality of Serum or Plasma by calculation 278 mosm/kg 275-300 [facility] Creatinine/Urea nitrogen [Mass Ratio] in Serum or Plasma 13 [facility] Calcium [Mass/volume] in Serum or Plasma 7.4 mg/dL 8.6-10.0 L [facility] Glomerular filtration rate/1.73 sq M pre dicted among non-blacks [Volume Rate/Area] in Serum or Plasma by Creatinine-based formula (MDRD) >6 0 [facility] Glomerular filtration rate/1.73 sq M pre dicted among blacks [Volume Rate/Area] in Serum or Plasma by Creatinine-based formula (MDRD) >60 [facility] ID Date Data Source [id number] 02/20/2020 05:00:39 AM EDT [facility] Name Value Range Interpretation Code Description Data Gisela rce(s) Supporting Document(s) Magnesium [Mass/volume] in Serum or Plasma 2.4 mg/dL 1.6-2.6 [facility] ID Date Data Source [id number] 02/20/2020 05:00:39 AM EDT [facility] Name Value Range Interpretation Code Description Data Gisela rce(s) Supporting Document(s) Phosphate [Mass/volume] in Serum or Plasma 1.9 mg/dL 2.5-4.5 L [facility] ID Date Data Source [id number] 02/19/2020 04:48:44 PM EDT [facility] XR CHEST FRONTAL ONLY [id number] RESULTI nterpreted by:CARRIE BermudezPROCEDURE INFORMATION: Exam: XR Chest, 1 View Exam date and time: 02/19/2020 4:44 PM Age: 34 years old Clinical indication: Epidural hemorrhage with loss of consciousness of unspecified duration, initial encounter; Other: Ett retracted. Check position TECHNIQUE: Imaging protocol: XR of the chest Views: 1 view. COMPARISON: DX XR CHEST FRONTAL ONLY [id number] PORTABLE 02/19/2020 8:51 AM FINDINGS: Tubes, catheters [...] rce(s) Supporting Document(s) ID Date Data Source [id number] [facility]:45[facility] [address] [facility] [id number] RESU LTInterpreted by:Magdy Feliciano MDHISTORY: Status post [...] rce(s) Supporting Document(s) ID Date Data Source [id number] 02/19/2020 01:16:22 PM EDT [facility] Name Value Range Interpretation Code Description Data [facility] rce(s) Supporting Document(s) Leukocytes [#/volume] in Blood by Automated count 15.3 10*3/uL 4-10 [facility] Erythrocytes [#/volume] in Blood by Automated count 2.84 10*6/uL 4.6- 6.1 L [facility] Hemoglobin [Mass/volume] in Blood 8.2 g/dL 13.5-18 L [facility] Hematocrit [Volume Fraction] of Blood by Automated count 23.9 % 4 1-53 L [facility] Erythrocyte mean corpuscular volume [Entitic volume] by Auto mated count 84.1 fL 80-96 [facility] Erythrocyte mean corpuscular hemoglobin [Entitic mass] by Automated count 28.8 pg 27-33 [facility] Erythrocyte mean corpuscular hemoglobin concentration [Mass/volume] by Automated count 34.2 g/dL 32.0-36.0 [facility] al Erythrocyte distribution width [Ratio] by Automated count 12.9 % 11.5-14.5 [facility] Platelets [#/volume] in Blood by Automated count 217 10*3/uL 150-400 [facility] Differential cell count method - Blood [facility] Neutrophils/100 leukocytes in Blood by Automated count 87 % [facility] Lymphocytes/100 leukocytes in Blood by Automated count 6 % [facility] Monocytes/100 leukocytes in Blood by Automated count 7 % [facility] Eosinophils/100 leukocytes in Blood by Automated count 0 % [facility] Basophils/100 leukocytes in Blood by Automated count 0 % [facility] Neutrophils [#/volume] in Blood by Automated count 13.21 10*3/uL 1.8- 7.0 H [facility] Lymphocytes [#/volume] in Blood by Automated count 0.96 10*3/uL 1.2-4 .0 L [facility] Monocytes [#/volume] in Blood by Automated count 1.08 10*3/uL 0-0.8 [facility] Eosinophils [#/volume] in Blood by Automated count 0.00 10*3/uL 0-0.5 [facility] Basophils [#/volume] in Blood by Automated count 0.02 10*3/uL 0-0.2 [facility] Nucleated erythrocytes/100 leukocytes [Ratio] in Blood by Automated count 0 /100{WBCs} 0-0 [facility] ID Date Data Source [id number] 02/19/2020 12:44:14 PM EDT [facility] Name Value Range Interpretation Code Description Data Gisela rce(s) Supporting Document(s) History and Physical [facility] QINTZi5iMbYPFjNs31/POFwmIWBhx0TbTLwhHVd5UMqkNDJzK6NnUMH7kX7zAGB0KLpPOdZqFvQsRwTh [facility] [file] OmejSg1Fb3bs1vwagN9+2FNvF7YEdFZpv6hheQ8T3HXkV6x4ejIJgxWC1InO2X/[employer]+/Q1NWoALBJ4lFB Da8iRpvtkA/NdZMVE2eD3Tt6L1iGrhdb1oRxYVGx4179m5auELdEC+2BZ7gntEdmLn5meYkcbzwYsRCG uhpY3kZU4kFwv5aQ86geBTBG449CAkjk/UN17CB3Ak RrKOpfAdyLOj+P0hUTKjY26fXA2cbIdl6XpgQxA1i0rItXnCLFqWXu+o5/YNszL6OcURpA5VUuU7vvpI dmfJeLKvWVqpX9bxWOXfDXi6RVfmsuq2aDLPj3/wSl+7JhUnM6S1mClAYu0vLgJqM6ltz0SRWE3UEkoU +A+6H2OC7hHWFNxMAlWvH2HnVZTjX9MVAoO0DY7QpZ QsRU9zGahi7Q+3q1pK5I/YRws7FX6+U0fwAIcjrQ357coaTuLsS2x3xi/[place]/N7aOW6Yk7w4i5slMJVrz [file] AgICAgICAgICAgICAgICAgICAgICAgICAgICAgICAgICAgICAgICAgICAgICAgICAgICAgICAgICAgIC AgICAgICAgICAgICAgICAgICANCiAgICAgICAgICAg ICAgICAgICAgICAgICAgICAgICAgICAgICAgICAgICAgICAgICAgICAgICAgICAgICAgICAgICAgICAg ICAgICAgICAgICAgICAgICAgICAgICAgICAgICANCiAgICAgICAgICAgICAgICAgICAgICAgICAgICAg ICAgICAgICAgICAgICAgICAgICAgICAgICAgICAgIC AgICAgICAgICAgICAgICAgICAgICAgICAgICAgICAgICAgICAgICANCiAgICAgICAgICAgICAgICAgIC AgICAgICAgICAgICAgICAgICAgICAgICAgICAgICAgICAgICAgICAgICAgICAgICAgICAgICAgICAgIC AgICAgICAgICAgICAgICAgICAgICANCiAgICAgICAg ICAgICAgICAgICAgICAgICAgICAgICAgICAgICAgICAgICAgICAgICAgICAgICAgICAgICAgICAgICAg ICAgICAgICAgICAgICAgICAgICAgICAgICAgICAgICANCiAgICAgICAgICAgICAgICAgICAgICAgICAg ICAgICAgICAgICAgICAgICAgICAgICAgICAgICAgIC AgICAgICAgICAgICAgICAgICAgICAgICAgICAgICAgICAgICAgICAgICANCiAgICAgICAgICAgICAgIC AgICAgICAgICAgICAgICAgICAgICAgICAgICAgICAgICAgICAgICAgICAgICAgICAgICAgICAgICAgIC AgICAgICAgICAgICAgICAgICAgICAgICANCiAgICAg ICAgICAgICAgICAgICAgICAgICAgICAgICAgICAgICAgICAgICAgICAgICAgICAgICAgICAgICAgICAg ICAgICAgICAgICAgICAgICAgICAgICAgICAgICAgICAgICANCiAgICAgICAgICAgICAgICAgICAgICAg ICAgICAgICAgICAgICAgICAgICAgICAgICAgICAgIC AgICAgICAgICAgICAgICAgICAgICAgICAgICAgICAgICAgICAgICAgICAgICANCiAgICAgICAgICAgIC AgICAgICAgICAgICAgICAgICAgICAgICAgICAgICAgICAgICAgICAgICAgICAgICAgICAgICAgICAgIC AgICAgICAgICAgICAgICAgICAgICAgICAgICANCjw/ dBRjH2astSKmdoZ7H5ycDi3TUg5JSP5km4GzNDWzWPpudlZoKwhXEyJfXQWbXvwQUqz0KJueQO8PyPAw D1XpR9NlOCvxHD7FXMGnCHJyhGNjXPJuYEFrXeS6SSOvXAxvAS4YyEXiEJyuIBVmJUTtKzUoQIZdSIKs KOYtCEYcQTHQPS4OLsIoV8RokH45GNXEAa0+DQplbm AtKxwNZgXpEUOso2FcYXn7SN4LFQFuKmjmn2EjItHwFGBSJYzfWK8YBQP9XGN6FXBoIx9MOZNeW854yj ZxJA7REf8LRdTmOB9tst7YYqJoHCEjEblVVzx9FDqpVL1LbCFgGAeOZiQhUrboFLZipBL1STBlfnkjkB 4BDZNsnPjlHIPhWWAmQg7qRc9sTKVrBHOqDtJ0TBMV LV1IICYxVVHrzYAiZUUwSBKPFB4IOXtmADL9CSDowoWajGLkXLesLX4WKQJzngDiNoMsFBSCDNj+Pg0K TZ3pu4KjEBhgNIOcQB3eex3TKYiVLvAzQ7S8tBFbV9W1BMqlNp2MXXMpSJPxZjGzURMXLAreOI6LWV7o vwI9GM8JdGCiMAPuLBLafJCvDZp5U59dcQRwMYqjJR 0KICA+Neva+Wh3HQHCcCAInUXBjSjDqZUCFIvTeN3JpU5FOq6NkB6ZnHH36fBflzrGaCMlkFN2VLG5tTA KgHTARKK1ClHUopJ3twrDiLwZrWXBGCvCxJ67ctPYjWIFpPURrZODkPy5IEISrN2OjdbIafJxorvCrHG TfTPNSHH7YVCcfkfUlmKBaiXrwWH26mWnhSR5VVq9Z XwYyJH8xbz9LmYZwEi9XRVAwZr4AWZHzYRGfVLXmJOY1VRFdQbSaBPocLQKaPBSjIET5VMWxDUFaLX3T PhTiEQNqXLX4OgHgDVQeBIKufc9TUNWgHTE8BoopFrDsCAViSRWxUOuzIVXmRBXfIXO8NADmPYOdSG4Y QaQcWWOdAOGxIMUkDMVcNVVchf1PBVHmQWIyIiJ5Hp IuCFDqPMUsRUhhXZZxIRK1BsT7HCMgYRChMH7KTzMpPJItCEL3HlHaUWDmRQAwqz0VKABeYPSfBRh1GT ZoZBRjBXWnKEguWNJkWET2MCo0AKIsVHByBH4KQvAtULFkDNNrXaznANLwKFFfly5KTNLaZDGbKAH1On OtYJKoYUKiVZkuLTQrWKQmDBIiPPDfQKZkAJ7TTnJg PLXgLJC3ABElFDGkHMOwgs4UVTTuPVLxCLgrKnChOKBpVQCnGOfgKKEiKQIbIwtfBHJrQWSpKD6EYbFl GERkAPB5OEKaSITuADTfaj8VJBLvJJDtMfQ1FoXyANKkGXCoQPwxRDIgMKU0CMGpATNjCACrBB8WBjKw VKYlBSQeFwmaRNJtTSLplc5AQNAoROSyCCEcChGwZG DkTQVvIOvzUSBhPXN9IKgrFEUpRLFoJD9NAzKiEIDaVEE5PcFkVREmJJTalt0RSOFoZCSqRBa1ZQIgNZ QtPLUeROsbTJRfRHBzGGR1CWYfWXUoUS1PKdToPXHxGjHsNKujVSOfINTvlm1HQFMbDWZyIXW1IBOrWQ XqQCHpCFmaVXXlUDQ8DNd3ACOcHRPxEY9QHfUrSEGg VaBhLzRfABVdLDQhku3ARRQgKDBtSZZ2UJPyOZMcGCHqFKthABAyMTN8GAb5WNWxOUQyNU2TMdAbTSIs QGKcMrLmLJYoFJIulo3YUBYaIWX3BmylJWUfLJXhWBPgUNqwRXUiCMY0VXnxCFBkUNQdHM7BGrCaQVCd MWhzDvYrMOFcNNGhae8XkWIimLvrkj1CLFuVBi0CdP reGTY0BSwiCw8mdFBmDQRuXFTPWp3TinOzHZEtAZDMAOqhGWMaMCR3SfNfN3JvCLUvP8ZlAVW2CPH0KH OdI3B0ArZ3GBA6MmW4LKUuAGP7TwJkC6W3OnZaMfPmOTGaShL8DvLtUeBzNTK+RE4pATm+Tj7Yw3Vsft E1gsPoRPn3KsN5Oa5YUGOOW0WQSs== ID Date Data Source [id number] 02/19/2020 12:37:18 PM EDT [facility] Name Value Range Interpretation Code Description Data Gisela e(s) Supporting Document(s) Consultation [facility] FONTPq0cToJBFfIo59/IDLpsXIExn4HiNRqvCMq7VAxgAYZxZ7HxNPA2sP8cIIE1JYrNHmDqRnDlFpQl lbm HfWqoVUsFeQMDbKdfKLnFjLFgrAztkrEBhQI3VnIW9TWZkZ35vTOWzRNElY3PrMQV9FXm+Xx7FVCTlyP AjXH5OZnyR9Ihiwiy9OI9hYW7LQkMCAmH02ZX70Sca98POZ5CtnwvL7SrwTRezTXUwdxPBb42dQbP/E+ bIXHPDpvpWGCJr9V/ALlap+t/Lizeth+NgyBQ0/+zn2mu [file] [place]+NU4XRb+uiMcsArlhobplW+6xf37zEQB2NCqf3rbk1mPiWnGs7aD9UIZMuV219MwIDUhs0diRbI7g [file] ScNQOwXFGqVLChMNO1DctfEZFcEpp5Je9fFAEBOb1+EKkctERpxJxgXGEBVij7XDYVXaVsQF8WEZv= ID Date Data Source [id number] 02/19/2020 12:27:09 PM T [facility] Name Value Range Interpretation Code Description Data Gisela rce(s) Supporting Document(s) Leukocytes [#/volume] in Blood by Automated count 4-10 [facility]OHNS[facility] RN 9F NOTIFIED AT 1226 BY 1472 Erythrocytes [#/volume] in Blood by Automated count 4.6-6. 1 [facility] FORTUNE,RN 9F NOTIFIED AT 1226 BY 1472 Hemoglobin [Mass/volume] in Blood 13.5-18 [facility] JASON ALEX,RN 9F NOTIFIED AT 1226 BY 1472 Hematocrit [Volume Fraction] of Blood by Automated count 4 1-53 [facility] JASONBRITTNEY JOHNSON,RN 9F NOTIFIED AT 1226 BY 1472 Erythrocyte mean corpuscular volume [Entitic volume] by Automate d count 80-96 [facility] ALEX,RN 9F NOTIFIED AT 1226 BY 1472 Erythrocyte mean corpuscular hemoglobin [Entitic mass] by Au tomated count 27-33 [facility]RN 9F NOTIFIED AT 1226 BY 1472 Erythrocyte mean corpuscular hemoglobin concentration [Mass/volume] by Automated count 32.0-36.0 [facility] JASON ALEX,RN 9F NOTIFIED AT 1226 BY 1472 Erythrocyte distribution width [Ratio] by Automated count 11.5-14.5 [facility] ALEX,RN 9F NOTIFIED AT 1226 BY 1472 Platelets [#/volume] in Blood by Automated count 150-400 [facility] ALEX,RN 9F NOTIFIED AT 1226 BY 1472 Sample quality of Dried blood spot [facility] JASON ALEX,RN 9F NOTIFIED AT 1226 BY 1472 Differential cell count method - Blood [facility] ALEX,RN 9F NOTIFIED AT 1226 BY 1472 ID Date Data Source [id number] 02/19/2020 11:35:56 AM EDT [facility] Name Value Range Interpretation Code Description Data Gisela [facility](s) Supporting Document(s) [facility] ILJGIo8xQtIAClCaz0NcNaKrFNCuXI6ghlq3P2G7rQOoI9CsxMXhh8snL8CfN7IeGFJcHALTXJ5WhIEw jb2 [file] fSiCu3Go/wsm3WfD7qZPy5/steph+rYwwM0zwM/liu9b 6N37veM2i1++Wr/br6itSq/az6c+iM8T7LGcV59RbtGJBy6MO12j+Bd2zoIdxg/mOv93amA8oiSr/Yzw b3098R58O5e01T1O+dn7goz1eO/h+6s1qp1N0qFYz+1515PFr/pgZ9w5M+Gcq68gaiKjAak164L58wlG sy/+LPs8/Kpnuyc//Nld519zZ5lHD/h6xbeObi+U1/ PDq+vg28czI/+Lt7H9oDbKMW+cmprdHGxgernSr11n26/h08Ic3sb8DVfw5A0ddUf2exlTqztFBZ4Qc6 EFI6ebBWy5OK0tnKvc9T1JB+0euOtk5takQJ8+5W+3+JXLtvjV+7hmzhTFwZnMR3CW3q4jH85q3thgTv Oc/mSGk+/gR8cDLG4V1pZQMlrxjL99vb9jQKuabR4m dlFMF9StFElsrIF6O9Z60b0DT9q/eJqz7Frxm5zPcrdguezz32mXk9ZaxRDE5l8U2dv+z/W8s/bLHHft d0sCdhYesa10BQ1HYzp9+bXD8lN+h1WAom27T496jqLiI+lBrMzM7d4QbdWt/cHlnWwbLudkf6/lm7zL EM/4WwhklKa86BPlx/YH/Qx9I/TV/kHnlAkayxd74S C4j0c8DobS6MUY46e9SplNqyJ2CB3BhhiQ17znsJeC7gpMY9Zput/t57NCfm9NC9feEmuq4Epch/jVeH 2Pz/OaV0P7HcvT6MwW37AztW3xU+8zwk/3ZM9Ke6v+2nv8bcZA/Rd8SjbpN6qXI9W9iMdd88ZF9LnCf/ D2S5hTuQ/P++FMafv2pG/qllgX6Fj3di8V96HnBuPB X26b9GFh4UEYvk+8I308ia7pwftQW1HEkpkn0VPD6pl+z/V9Z/Oku5IxzqN2Ok/y39U3g70rUNeX/v7y QN1mslj/Z56B7pr+2yhsGfva756O9Kqs4qEY7skIzry3OhrN+015imcpNh8KJfduXWd14N6qTwylbteP vc5nzBmZ+GDkAge5c2hBt31djhXh07/0TcFR2IM8yJ 7gePwj7zgf5H7Ebx2+s6fQ5fMxjYkHa64yyr/vH04khoTGk11amA24BOowKE55AIqu/959CpyBTr39M5 7Q0mss5m40ha9Ox4/byipeKIuxqTxUx3xSDI/derrick barge operator+PvvudR9/9zvq+3lyMr8A7A+lvdX6iiAy+/OoNH3 h/Sdgr0ki/tuauXGfsjwdxLev0nj/F/ZY/8Do+9lfu rXikE955ErT1vBXo8F5HqmT1z5s2+NWOu+qz8+mKecC9iafy2lq8mAl866eOU/H2io0L0NjK6Gy4spaD 4Tng+nUTtj93jXG5gB+LX+0t2O2B2Lz8ms3xqfAZh2/t54nw+LIE5igia6pXglo7479GMlWx/V5V/EqO VeJXDs/m65wqR52YR/jQO0vf/Vx3XVr+vW94e+thFb +Fq2239Bu6m8/3R1FtcSGDF8/S++JXDj/0ysw5gxBJ5G9Yx8II9GL99E1pxwCB+/U7S1/HLUi/nvKLX/ lldfGaj37p2LraP2WdbBuLff31OLPgm1H/7wzr54vyuvgX0VxUkOBIsi/41X5+20tNp/2E4TaEOhTh2e ekc+pzNb+SD/UkZ3ww17ET2pe67pj9paFJj1f533TD v8p+PvmKX+6nr8wr2ft+JtFl050t+PGpY4JN+gxdJ8Zpwj9eG6fsxDuFl/v9tJd8+INAb4U1VQ/qCp9v l2c4p34gnmRM36l5d8+5Topf+RwhXOB6OnR6bnXA7g+k6R4JeLI3Wsxi/Ypf+A5W7jbF9xqx6ThUcvr+ iKkj9NW/kqRMmyVDYK35RoZ8ITij0sN+ZadYfF/xK3 8Ids2fnyX9+qk/4leqY+UTyc7HN//cznywtjMfrOJXai/esIsg3ulUnfdm+9tDjwCDKNaderH9ox/zy9 trO/R11ljFP66tPN/z3+Vi++Y1odeZ/y7/2v1+P/Fj0U75ixMztkD06xRd59wDDj39F7ZToitgj3rzZ/ FnO2utR48x3j3Z1lqrG7s+1HOwKX2Cd+f9gf5K/Erf aJzzwHUcvlEHvu+AviPj/TNfqAPfV+tX+i7jzH/hjAo3gCwzWB18l7ZnDrva+JXapviV+oEBfcc5/1y1 tkWC9VYbFunQb41Dl00Ke+TFuief8Oitu/wPY3sjB+Syqkrfwt0UGRfJc/9jKhl2bHSi48sNsIlq0kKi Rrg4VvcxPs52c/P480d9jwtfkuoYYhtzf+VSzt0oze M/D6twEI1Wu6cYx3kEiyU/Wyatt+yz3W6+9BN5sxn5b48eqfjap2YH3Vc4+ot7Fl7tYdBYogSMPKp7Lf1y u42l/wcz3PE/me/hJiU3xRUW/+RnL90P3+emF/sOn8lZ/P+ecWz/bYlg9Au+u8qJ7P+eflBPums/ZD1x eiORT6V7w5HS17Hk8/51WW+6vX/5f36/wA2I3y8Qo/ lxojiBtqlkOyN0p+5Z2e2r12UB5hExlqO1Y6ep6qH+d8TsP+JIK10dq3UJ45fE/6q0n3Q25hgC+r/cH9 iIhH8wd6N4Dtnzv+3qDe2aaud3H14aL/7UGotn09Ob2eEcpmH5l6Pqni15f/bfnshzacb2/5nAdu+ZzP aTp/pW+i49qCkGH/L36lve/u6hwuVey81kli8Acbwx +r982XO+i8iNLmLf3ml2keoI9M+hX5tlM/epcp6aZ+GN3VEt1yw3el4+uEYrjzkLITn64LBSuR/Vx1vi 7q+bxfz/uA1dz140/n/FYvPS6emeg74Wu/Na4g3cddY9jy95D3WurYlnhw+404UWthee6JS+S1ejyDnk Ivp7dyV5ts8F0X5Ghe29uHk5P75ow1IVR+OfZsFeEV 5WlIB/u7pM4YsQF+3eUZKOdE+DzhOt+e/Hy+r90l3xhh/AXl8J01bw2IHqYC7gb+Wu1B790hpo7Ynm2J Y2qyLQ6L5dY+VA2SGoU+6T72gQ3kKyaazVmhLsWA1TtiAyIN5Sbzc+d1vm4/C5cvwJN0QooakGNe7+sW OulhHF6wMcTWrxowWl3B1J8Hv4UzES0q1R9Fq1XlHP 4yIqkToNX4Bxv7/7ymT+cZ4R3h/eg1oa/YE4mXFy+l8HN+rbb47Z8OsYH4bQScXc+s6DWqkXcacm5A43 0vP28os/llSU6FX/hcubj35IJ+x/xg7Dx9haTM85l4bU7abW5mHqtkEW+46Gtu49fvoAPn/IemLi2L3R i5zk+vimahl0br2R/ng9Zo37m0pMcv8rkE2S5pFg+q 547wpW/R89I3K+6H855097769peW82cwl589xT9e3cOy++J8e/x8bb8jOkwuo3fxqL9a1R/fcwyY3B0D [file] f6jf0cUHg6+2QnwQ6m+maria de jesus+r2WUEP100IufM+lmCzoM51KKuxz3Pu3atgS4w0nZtyI5Ctg0rijLpWpMdx [file] kg19086pkh4+/vT1x58+fSZy80jP8inNk2/7iD9JvUKUR312aaw/u69/7bhnr5469Ysz9962+29ff/71 26cP33/78gnWG269OfMnf517+PR6zg/ff/ftDx//f9Rwnioy1wjR/v3HL7/+u6+/oHta52oFv006+/z2 2x973KAkt3++/e714t+8vuA/uL/Gt5+r3j5++fc/v8 xUchdf2c3/9PGnr7/78Yfnyh/vSmd06gpnSprfu//z0IkP0jAEk4/+07/84S9//P0/v/33//320/Oxnz 59/NOW03w87rw/yxcba0efn/zm7Z/+U13/9Ndvf/7T2/xllV/eB6i2w7OdjYjeM1/4xvXiwaDM3bI//O Mv/5VC5atcBGsA/nYOuRemoDEe8eq/L1BTtC+6/7b8 OixCUiYdcmLWJ1fZz15J47nsCc4+/SPn6Yxz5ArFP35hX36b56D4Qui2+3/5/V/+PjR7lvpfst7+/c3H f3z7uw+jdp3n9p3++PCrj5/uuDI9x6/W96+dz6DS57l9kdz/9GyYv/pd0Z9VtxQ7kvdvc/6uSf/0+z/9 29++/eW3//b7d8W/9mU3v2DcFBFP/i67NbH//POyD/ T9p7c//Onffv+X//u3//M/KPzU6/kHT8GrkP3+XvrB/uHTD2///L9eb/6HP//o35LkfNfwCh2HFXtfHy /yHz7/pd53ZkH+msp+2WW/F01t1PDVWql7+dKTy9qQIkWZK/ptLpmG35/75BjLf9/9f37/r/++B92fJu 4D15074p+dcJPpRmsd4J//5Z/++mdXn9/wm9/+z3c/ d79Dv/zt//rdb//1D7/908/uPxU9+x9+Bt4q+vTnP//xi/rpZ/j5mm/+/HohdJ8PSRGnQJJTG//+d//X n/9wa4awy4y+yrB8p0rVlLAi/dd/e7Wof/7i43/9+7cvf/3h27//+O+bv8iYfyU8c/nNazj+3Iv550bD +/+/2IiXzAyPxeU28/6fv3+rb3/+u5a7n0EFWt0d1y 6f01ckoNtkM2/6/IUPgG+muj602XIEMr/zVbyJDeX6WC559Ud/ogw09dSor4cT+jql/3/rMa7yKpYhOW B7mgLpkShjorUfRusJDZjqGCMdFja9FO6EiZMjUMOrZ4M6GUSdgv5uXQPbNDEimAGcCqRkYFYZIW2ShM CmHL2GSIx9FTVkPDPmTuRzCJVqpjU7RPSwRIPxILDv O2NqkfFoiNTlLFUlVh0+GR3xe8QyIgTdHXDjDek7TA8LhWEuVD3AoQKdwB8arrUgU567bqOiJDZnGpgn c3WkORxaRUFDSR8WWWY6OKB0NNErKs1+SL2fw9TmViBkPRKuGvq1UI6RjDEvz3UxED9FO7OxMOVyITVN ABX7p9MyHXYtsbhwpqyiB1JeAKZ5wV7dZJI5TJHvUX mfCOZlTWacTqGeMcJbSXzaNXGuUTQiNSYoUXKoCQb6nWQyJI7VJ9VhZRLxLFKGFFWeubQdSc0mXNIFRM nOTFJkREuEA34JMQC4FrL0FFotIP8WhEHaUJL3WTjXRSITXMaEVFaoUxZgv5V4GLPtF7ZrWXHaypVlHR JSCPguIwwmZR8shZjplgygS3KyhFDbXXJQBPUwRSLu OHUvTIAwA9Ynb0Y1R2BqQKmDSSJPAEbNEBupJrG2v75dnkSQJDAvHZNsOI3+BO8ti7TnMe2GMTXnFX7t cyr3PN4IaSTuHN9NRSpwxuSaD7uhylOpZkGjDVVTHF8xN6GznU30NRQ+YmYlTP3ithb6moDzGzAaAIKh HOYgQIHnUHgwREBlYOTaUJGcFBQ8RAD6KZYdWiQvXX NiLyCeAQgpBDXmGMDdcyEBFVLgLNG5IPwuNJDhJXShCLBpQOtgFXEjYXjkJNzfYLZmPKOxXX9zLbSyQH VzUJDiIAQmHqK6IqQlNhVDFIDwCYSjXIZdGyGaXCIsDIQfVPveKQGeGXWtLBi5TCUfHBWbUO0hBfBeDD WxHPBrMVAeNUMgGSApuiFLNNHeUTYqNBB1LZKbAAUt CTFfNGfzNSRpUOGqJNI9CCMuWCWbET3sAsXrOCMhXPF1KkUcRHVbOAOdkbOSHNFvNXMyQXR7QAYuQWCm XVEcQMjaTZWrOAQqHhR5NTUeRUXvAB6sAmMnOHUrMBE5SKVlHJIcQDSeugNPIKQdEALxJIv1NdWcGQFv UDGoRMzcILIhXPCkZCtzLEPlXWFaMJ4iVdEiUFFwZR HlZJOxCRSmSEBuktCFCQElLSMxCBO6JyYhYSWzVHMbRXipDSKqYHQsSNU1OTFdWWOoNP9sKsJuPEYaVi U5CeJbVQSuXFHwawJZJGCyHDFcSTSmRMJsDQXaOOTsJJjbFQWgOWHxHdZ8MFVwMYWiAU2bDsIiJFJaSQ U6TNIaDOCvJGAxfzHXLIMaSEEwOKZvSWM8UNLfAMNg FJn5mvEwvLLoPip9Td0CiSnxXFD6Ee2NqsZdWZCzLWILQx1Ex399UFYxNNBHHaq+PgpzdGFydHhyZWYK OpMfKGTRKJRYG3P= ID Date Data Source [id number] 02/19/2020 09:27:38 AM EDT [facility] XR CHEST FRONTAL ONLY [id number] RESULTI nterpreted by:MALENA Jenkinsadiograph of the chest [...] rce(s) Supporting Document(s) ID Date Data Source [id number] 02/19/2020 08:38:03 AM [facility] Name Value Range Interpretation Code Description Data Gisela rce(s) Supporting Document(s) Leukocytes [#/volume] in Blood by Automated count 18.2 10*3/uL 4-10 [facility] Erythrocytes [#/volume] in Blood by Automated count 2.98 10*6/uL 4.6- 6.1 L [facility] Hemoglobin [Mass/volume] in Blood 8.3 g/dL 13.5-18 L [facility] Hematocrit [Volume Fraction] of Blood by Automated count 25.1 % 4 1-53 L [facility] Erythrocyte mean corpuscular volume [Entitic volume] by Auto mated count 84.3 fL 80-96 [facility] Erythrocyte mean corpuscular hemoglobin [Entitic mass] by Automated count 27.9 pg 27-33 [facility] Erythrocyte mean corpuscular hemoglobin concentration [Mass/volume] by Automated count 33.1 g/dL 32.0-[facility] width [Ratio] by Automated count 12.9 % 11.5-14.5 [facility] Platelets [#/volume] in Blood by Automated count 244 10*3/uL 150-400 [facility] ID Date Data Source [id number] 02/19/2020 08:38:55 AM [facility] Name Value Range Interpretation Code Description Data Gisela rce(s) Supporting Document(s) Osmolality of Serum or Plasma 303 mosm/kg 285-295 [facility] ID Date Data Source [id number] 02/19/2020 08:57:13 AM [facility] Name Value Range Interpretation Code Description Data Gisela rce(s) Supporting Document(s) Bicarbonate [Moles/volume] in Serum 17 mmol/L 22-29 L [facility] Chloride [Moles/volume] in Serum or Plasma 104 mmol/L 98-107 [facility] Creatinine [Mass/volume] in Serum or Plasma 0.70 mg/dL 0.70-1.20 [facility] Glucose [Mass/volume] in Serum or Plasma 98 mg/dL 70-140 [facility] Potassium [Moles/volume] in Serum or Plasma 4.1 mmol/L 3.4-5.1 [facility] Sodium [Moles/volume] in Serum or Plasma 134 mmol/L 136-145 L [facility] Urea nitrogen [Mass/volume] in Serum or Plasma 7 mg/dL 6-20 [facility] Anion gap 3 in Serum or Plasma 13 mmol/L 8-15 [facility] Osmolality of Serum or Plasma by calculation 277 mosm/kg 275-300 [facility] Creatinine/Urea nitrogen [Mass Ratio] in Serum or Plasma 10 [facility] Calcium [Mass/volume] in Serum or Plasma 6.5 mg/dL 8.6-10.0 L [facility] Glomerular filtration rate/1.73 sq M pre dicted among non-blacks [Volume Rate/Area] in Serum or Plasma by Creatinine-based formula (MDRD) >6 0 [facility] Glomerular filtration rate/1.73 sq M pre dicted among blacks [Volume Rate/Area] in Serum or Plasma by Creatinine-based formula (MDRD) >60 [facility] ID Date Data Source [id number] 02/19/2020 08:57:13 AM [facility] Value Range Interpretation Code Description Data Gisela rce(s) Supporting Document(s) Magnesium [Mass/volume] in Serum or Plasma 1.4 mg/dL 1.6-2.6 [facility] ID Date Data Source [id number] 02/19/2020 08:57:13 AM [facility] Value Range Interpretation Code Description Data Gisela rce(s) Supporting Document(s) Phosphate [Mass/volume] in Serum or Plasma 2.8 mg/dL 2.5-4.5 [facility] ID Date Data Source [id number] 02/19/2020 08:22:22 AM [facility] Name Value Range Interpretation Code Description Data Gisela rce(s) Supporting Document(s) pH of Arterial blood 7.30 7.38-7.44 L [facility] Carbon dioxide [Partial pressure] in Arterial blood 38 mm[Hg] 35-40 [facility] Oxygen [Partial pressure] in Arterial blood 149 mmHg 95-100 H [facility] Oxygen saturation in Arterial blood 99 % 94-100 [facility] Base excess in Arterial blood by calculation [facility] Carbon dioxide, total [Moles/volume] in Arterial blood 19 mmol/L [facility] Oxygen/Inspired gas setting [Volume Fraction] Ventilator 0.50 [facility] ID Date Data Source [id number] 02/19/2020 09:23:04 AM [facility] Service Cmnt XXX-Imp : NoneMicroorganism XXX Cult : 2019 nCoV Real-Time RT-PCR: NOT DETECTEDTest performed using the [employer] Xpert Xpress SARS-CoV-2 assay. This test is only for use under the Food and Drug Administration's Emergency Use Authorization. Additional information is available on the following FDA websites for health care providers and patients. https://www.fda.gov/media/695090/download , https://www.fda.gov/media/085295/download Name Value Range Interpretation Code Description Data Gisela rce(s) Supporting Document(s) ID Date Data Source [id number] 02/19/2020 07:20:00 AM [facility] Cmnt XXX-Imp : NoneMicroorganism XXX Cult : 2019 nCoV Real-Time RT-PCR: NOT DETECTEDTest performed using the [employer] Xpert Xpress SARS-CoV-2 assay. This test is only for use under the Food and Drug Administration's Emergency Use Authorization. Additional information is available on the following FDA websites for health care providers and patients. https://www.fda.gov/media/826001/download , https://www.fda.gov/media/055732/download Name Value Range Interpretation Code Description Data Gisela rce(s) Supporting Document(s) Microorganism identified in Unspecified specimen by [facility] This lab was ordered by [facility] and reported by [facility]. ID Date Data Source [id number] 02/19/2020 09:10:13 AM [facility] Name Value Range Interpretation Code Description Data Gisela rce(s) Supporting Document(s) Amphetamine [Presence] in Urine by Screen method Negative [facility] Benzodiazepines [Presence] in Urine [facility] Cann[facility]oids [Presence] in Urine by Screen method Negative [facility] Benzoylecgonine [Presence] in Urine by [facility] Methadone [Presence] in Urine by Screen method Negative [facility] Opiates [Presence] in Urine by Screen method Negative [facility] Oxycodone [Presence] in Urine by Screen method Negative [facility] Fentanyl+Norfentanyl [Presence] in Urine by Screen method Negative A [facility] (NOTE)Positive results are presumptive a nd unconfirmed;confirmatorytesting can be ordered at the [facility] at [phone] [facility] at [phone] within 5 days of collection. Service comment [facility] Results below the indicated cutoff (ng/m L), are reported as"Negative." Note: for medical purposes only; not valid for legalor employment testing. ID Date Data Source [id number] 02/19/2020 06:56:23 AM [facility] Name Value Range Interpretation Code Description Data Gisela rce(s) Supporting Document(s) [facility] [id number] [facility] [file] ophthalmology technician/tly1r8N4/f/xJF5aF6opf0v4E8onqSy9/oDim [file] [id number]+QrsP8X+Ky3oI7n6V/sNiZO5b3z/BaKZ4UDrWA1kJPO6uQoBYC3PNkOZYX/MwP/T+range mechanic/Y//l2KNs [file] [id number]+FThzzDIooAwbOCMKLyY3TxncJVvzNZXAOp8D ID Date Data Source [id number] 02/19/2020 06:20:30 AM EDT [facility] Name Value Range Interpretation Code Description Data Gisela e(s) Supporting Document(s) pH of Arterial blood 7.24 7.38-7.44 L [facility] Carbon dioxide [Partial pressure] in Arterial blood 43 mmHg 35-40 H [facility] Oxygen [Partial pressure] in Arterial blood 308 mmHg 95-100 H [facility] Base excess standard in Arterial blood by calculation [facility] Oxygen saturation Calculated from oxygen partial press ure in Arterial blood 100 % 94-100 [facility] Bicarbonate [Moles/volume] in Arterial blood 20 mmol/L [facility] Sodium [Moles/volume] in Blood 138 mmol/L 136-145 [facility] Potassium [Moles/volume] in Blood 4.0 mmol/L 3.4-5.1 [facility] Calcium.ionized [Moles/volume] in Blood 1.00 mmol/L 1.13-1.32 L [facility] Glucose [Mass/volume] in Blood 106 mg/dL 70-140 [facility] Hematocrit [Volume Fraction] of Blood 26 % 41-53 L [facility] Hemoglobin [Mass/volume] in Blood by calculation 8.8 g/dL 13.5-18.0 [facility] ID Date Data Source [id number] 02/19/2020 05:09:43 AM EDT [facility] Name Value Range Interpretation Code Description Data Gisela rce(s) Supporting Document(s) pH of Arterial blood 7.20 7.38-7.44 [facility] Carbon dioxide [Partial pressure] in Arterial blood 45 mmHg 35-40 H [facility] Oxygen [Partial pressure] in Arterial blood 317 mmHg 95-100 H [facility] Base excess standard in Arterial blood by calculation [facility] Oxygen saturation Calculated from oxygen partial press ure in Arterial blood 100 % 94-100 [facility] Bicarbonate [Moles/volume] in Arterial blood 19 mmol/L [facility] Sodium [Moles/volume] in Blood 136 mmol/L 136-145 [facility] Potassium [Moles/volume] in Blood 3.6 mmol/L 3.4-5.1 [facility] Calcium.ionized [Moles/volume] in Blood 1.00 mmol/L 1.13-1.32 L [facility] Glucose [Mass/volume] in Blood 105 mg/dL 70-140 [facility] Hematocrit [Volume Fraction] of Blood 31 % 41-53 [facility] Hemoglobin [Mass/volume] in Blood by calculation 10.5 g/dL 13.5-18.0 [facility] ID Date Data Source [id number] 02/19/2020 04:02:12 AM EDT [facility] XR CHEST FRONTAL ONLY [id number] RESULT - FINALInterpreted by:Yousuf Wolf MDAddendum BeginsSigned [...] rce(s) Supporting Document(s) ID Date Data Source [id number] 02/19/2020 04:21:35 AM EDT [facility] Value Range Interpretation Code Description Data Gisela rce(s) Supporting Document(s) ABO and Rh group [Type] in Blood [facility] Blood bank comment [facility] ID Date Data Source [id number] 02/19/2020 03:26:43 AM EDT [facility] Value Range Interpretation Code Description Data Gisela rce(s) Supporting Document(s) Troponin I.cardiac [Mass/volume] in Blood 0.01 ng/mL 0.00-0.08 [facility] ID Date Data Source [id number] 02/19/2020 03:13:37 AM EDT [facility] Value Range Interpretation Code Description Data Gisela rce(s) Supporting Document(s) Sodium [Moles/volume] in Blood 137 mmol/L 136-145 [facility] Potassium [Moles/volume] in Blood 3.7 mmol/L 3.4-5.1 [facility] Chloride [Moles/volume] in Blood 102 mmol/L 98-107 [facility] Carbon dioxide, total [Moles/volume] in Blood 20 mmol/L 22-29 L [facility] Calcium.ionized [Moles/volume] in Blood 1.00 mmol/L 1.13-1.32 L [facility] Glucose [Mass/volume] in Blood 94 mg/dL 70-140 [facility] Urea nitrogen [Mass/volume] in Blood 7 mg/dL 6-20 [facility] Creatinine [Mass/volume] in Blood 0.9 mg/dL 0.70-1.20 [facility] Hematocrit [Volume Fraction] of Blood 36 % 41-53 L [facility] Hemoglobin [Mass/volume] in Blood by calculation 12.2 g/dL 13.5-18.0 L [facility] ID Date Data Source [id number] 02/19/2020 03:26:43 AM [facility] Name Value Range Interpretation Code Description Data Gisela rce(s) Supporting Document(s) pH of Venous blood 7.24 7.36-7.41 [facility] Carbon dioxide [Partial pressure] in Venous blood 47 mmHg 40-45 H [facility] Oxygen [Partial pressure] in Venous blood 29 mmHg [facility] Base excess standard in Venous blood by calculation [facility] Oxygen saturation Calculated from oxygen partial pressure in Venous blood 45 % 60-85 L [facility] Lactate [Moles/volume] in Venous blood 2.0 mmol/L 0.5-2.2 [facility] Bicarbonate [Moles/volume] in Venous blood 22 mmol/L [facility] ID Date Data Source [id number] 02/22/2020 07:23:25 AM [facility] Name Value Range Interpretation Code Description Data Gisela rce(s) Supporting Document(s) ABO and Rh group [Type] in Blood [facility] Blood group antibody screen [Presence] in Serum or Plasma [facility] Blood bank comment [facility] ID Date Data Source [id number] 02/20/2020 05:29:12 PM [facility] Name Value Range Interpretation Code Description Data Gisela rce(s) Supporting Document(s) Clotting time.intrinsic coagulation syst em activated of Blood by Thromboelastography 3.0 min 5.0-10.0 L [facility] Clot formation.intrinsic coagulation sys tem activated [Time] in Blood by Thromboelastography 1.2 min 1.0-3.0 [facility] Clot angle in Blood by Thromboelastography 73.9 deg 53.0-72.0 H [facility] Maximum clot firmness [Length] in Blood by Thromboelastograp hy 65.1 mm 50.0-71.0 [facility] Clot Lysis [Length fraction] in Blood by Thromboelastography --30 minutes post maximum clot amplitude 0.3 % 0-7.5 [facility] Coagulation specialist review of results [facility] A shortened R time and increased angle s uggest increased levels of coagulation factors and fibrinogen, likely due to an acute phase reaction. Although the results provide no indication for blood products, the patient's clinical condition and the results of other available hemostasis tests should also be evaluated.Ben Damian M.D., Ph.D., attending pathologist ID Date Data Source [id number] 02/19/2020 03:33:40 AM EDT [facility] Name Value Range Interpretation Code Description Data Gisela rce(s) Supporting Document(s) Leukocytes [#/volume] in Blood by Automated count 17.0 10*3/uL 4-10 H [facility] Erythrocytes [#/volume] in Blood by Automated count 4.32 10*6/uL 4.6- 6.1 L [facility] Hemoglobin [Mass/volume] in Blood 12.3 g/dL 13.5-18 L [facility] Hematocrit [Volume Fraction] of Blood by Automated count 36.8 % 4 1-53 L [facility] Erythrocyte mean corpuscular volume [Entitic volume] by Auto mated count 85.0 fL 80-96 [facility] Erythrocyte mean corpuscular hemoglobin [Entitic mass] by Automated count 28.4 pg 27-33 [facility] Erythrocyte mean corpuscular hemoglobin concentration [Mass/volume] by Automated count 33.4 g/dL 32.0-36.0 [facility] width [Ratio] by Automated count 12.9 % 11.5-14.5 [facility] Platelets [#/volume] in Blood by Automated count 220 10*3/uL 150-400 [facility] Differential cell count method - Blood [facility] Neutrophils/100 leukocytes in Blood by Automated count 87 % [facility] Lymphocytes/100 leukocytes in Blood by Automated count 7 % [facility] Monocytes/100 leukocytes in Blood by Automated count 6 % [facility] Eosinophils/100 leukocytes in Blood by Automated count 0 % [facility] Basophils/100 leukocytes in Blood by Automated count 0 % [facility] Neutrophils [#/volume] in Blood by Automated count 14.75 10*3/uL 1.8- 7.0 H [facility] Lymphocytes [#/volume] in Blood by Automated count 1.18 10*3/uL 1.2-4 .0 L [facility] Monocytes [#/volume] in Blood by Automated count 1.02 10*3/uL 0-0.8 H [facility] Eosinophils [#/volume] in Blood by Automated count 0.04 10*3/uL 0-0.5 [facility] Basophils [#/volume] in Blood by Automated count 0.02 10*3/uL 0-0.2 [facility] Nucleated erythrocytes/100 leukocytes [Ratio] in Blood by Automated count 0 /100{WBCs} 0-0 [facility] ID Date Data Source [id number] 02/19/2020 03:46:31 AM [facility] Name Value Range Interpretation Code Description Data Gisela rce(s) Supporting Document(s) Ethanol [Mass/volume] in Serum or Plasma 0.21 g/dl Negative A [facility] ID Date Data Source [id number] 02/19/2020 03:46:31 AM [facility] Name Value Range Interpretation Code Description Data Gisela rce(s) Supporting Document(s) Albumin [Mass/volume] in Serum or Plasma by Bromocresol green (BCG) dye binding method 3.3 g/dL 3.5-5.2 [facility] Bilirubin.total [Mass/volume] in Serum or Plasma 0.2 mg/dL <1.2 [facility] Calcium [Mass/volume] in Serum or Plasma 6.7 mg/dL 8.6-10.0 L [facility] Chloride [Moles/volume] in Serum or Plasma 104 mmol/L 98-107 [facility] Creatinine [Mass/volume] in Serum or Plasma 0.80 mg/dL 0.70-1.20 [facility] Glucose [Mass/volume] in Serum or Plasma 94 mg/dL 70-140 [facility] Alkaline phosphatase [Enzymatic activity/volume] in Serum or Plasma 92 U/L 40-129 [facility] Potassium [Moles/volume] in Serum or Plasma 3.6 mmol/L 3.4-5.1 [facility] Protein [Mass/volume] in Serum or Plasma 5.4 g/dL 6.4-8.3 L [facility] Sodium [Moles/volume] in Serum or Plasma 134 mmol/L 136-145 L [facility] Aspartate aminotransferase [Enzymatic activity/volume] in Serum or Plasma 30 U/L <40 [facility] Urea nitrogen [Mass/volume] in Serum or Plasma 7 mg/dL 6-20 [facility] Osmolality of Serum or Plasma by calculation 275 mosm/kg 275-300 [facility] Creatinine/Urea nitrogen [Mass Ratio] in Serum or Plasma 9 [facility] Bicarbonate [Moles/volume] in Serum 20 mmol/L 22-29 L [facility] Alanine aminotransferase [Enzymatic activity/volume] in Seru m or Plasma 20 U/L <41 [facility] Anion gap 3 in Serum or Plasma 10 mmol/L 8-15 [facility] Glomerular filtration rate/1.73 sq M pre dicted among non-blacks [Volume Rate/Area] in Serum or Plasma by Creatinine-based formula (MDRD) >6 0 [facility] Glomerular filtration rate/1.73 sq M pre dicted among blacks [Volume Rate/Area] in Serum or Plasma by Creatinine-based formula (MDRD) >60 [facility] ID Date Data Source [id number] 02/19/2020 03:47:47 AM [facility] Value Range Interpretation Code Description Data Gisela rce(s) Supporting Document(s) Fibrinogen [Mass/volume] in Platelet poor plasma by Coagulat ion assay 215 mg/dl 190-450 [facility] ID Date Data Source [id number] 02/19/2020 03:47:47 AM [facility] Value Range Interpretation Code Description Data Gisela rce(s) Supporting Document(s) Prothrombin time (PT) 14.6 s 12.5-14.9 [facility] INR in Platelet poor plasma by Coagulation assay 1.13 [facility] Routine intensity oral anticoagulation I NR is typically 2.0-3.0. Target INR must be clinically individualized. ID Date Data Source [id number] 02/19/2020 03:47:47 AM EDT [facility] Name Value Range Interpretation Code Description Data Gisela rce(s) Supporting Document(s) aPTT in Platelet poor plasma by Coagulation assay 24.2 s 24.0-33. 0 [facility] Procedure Social History Code Duration Value Status Description Data Source(s ) Smoking 08/31/2020 12:00:00 AM EST Current Smoker completed Curre nt Smoker eCW1 ([facility]) Smoking 07/30/2020 12:00:00 AM EST Current Smoker completed Curre nt Smoker eCW1 ([facility]) Smoking 03/12/2020 12:00:00 AM EDT Never Smoked A Pipe complet ed Never Smoked A Pipe MEDENT ([facility]) Alcohol intake 02/29/2020 12:00:00 AM EDT Current drinker of al cohol (finding) completed Current drinker of alcohol (finding) [facility] Cigarette pack-years 02/29/2020 12:00:00 AM EDT UNK [facility] Cigarettes smoked current (pack per day) - Reported 02/29/20 12:00:00 AM EDT UNK completed [facility] Smoking 02/29/2020 12:00:00 AM EDT Current every day smoker co mpleted Current every day smoker [facility] Alcohol intake 02/19/2020 12:00:00 AM EDT Current drinker of al cohol (finding) completed Current drinker of alcohol (finding) [facility] Cigarette pack-years 02/19/2020 12:00:00 AM EDT UNK [facility] Cigarettes smoked current (pack per day) - Reported 02/19/20 12:00:00 AM EDT UNK completed [facility] Smoking 02/19/2020 12:00:00 AM EDT Current every day smoker co mpleted Current every day smoker [facility] Vital Signs ID Date Data Source UNK Name Value Range Interpretation Code Description Data Source(s) Diastolic blood pressure 80 mm[Hg] 80 mm[Hg] eCW1 ([facility]) Systolic blood pressure 132 mm[Hg] 132 mm[Hg] e CW1 ([facility]) Body temperature 96.3 [degF] 96.3 [degF] eCW1 ( [facility]) Respiratory rate 18 /min 18 /min eCW1 ([facility]) Heart rate 106 /min 106 /min eCW1 ([facility]) Body mass index (BMI) [Ratio] 31.71 kg/m2 31.71 kg/m2 eCW1 ([facility]) Body height 70 [in_i] 70 [in_i] eCW1 ([facility]) Body weight 221 [lb_av] 221 [lb_av] eCW1 ([facility]) Body surface area Derived from formula 2.13 m2 2.13 m2 MEDENT ([facility]) Body mass index (BMI) [Ratio] 27.1 kg/m2 27.1 k g/m2 MEDENT ([facility]) Body height 72 [in_i] 72 [in_i] MEDENT ([facility]) 6'0" Body weight 90.720 kg 90.720 kg MEDENT ([facility]) Body weight 200.00 [lb_av] 200.00 [lb_av] MEDEN T ([facility]) Oxygen saturation in Arterial blood by Pulse oximetry 96 % 96 % MEDENT ([facility]) Respiratory rate 16 /min 16 /min MEDENT ( [facility]) Body temperature 98.5 [degF] 98.5 [degF] [facility] ([facility]) Heart rate 95 /min 95 /min MEDENT ([facility]) Diastolic blood pressure 79 mm[Hg] 79 mm[Hg] MEDENT ([facility]) Systolic blood pressure 122 mm[Hg] 122 mm[Hg] M EDENT ([facility]) Oxygen saturation in Arterial blood by Pulse oximetry 98 % 98 % MED[facility] ([facility]) Respiratory rate 14 /min 14 /min MEDENT ( [facility]) Body temperature 97.7 [degF] 97.7 [degF] [facility] Heart rate 88 /min 88 /min MEDENT ([facility]) Diastolic blood pressure 76 mm[Hg] 76 mm[Hg] MEDENT ([facility]) Systolic blood pressure 121 mm[Hg] 121 mm[Hg] M [facility] ([facility]) ID Date Data Source [id number] 03/02/2020 01:22:02 PM [facility] Name Value Range Interpretation Code Description Data Source(s) WEIGHT RECORDED 209 lb 209 lb [facility] Body height Measured 71 in 71 in [facility] ID Date Data Source [id number] 02/24/2020 09:27:41 AM [facility] Name Value Range Interpretation Code Description Data Source(s) WEIGHT RECORDED 221 lb 221 lb [facility] Body height Measured 71.26 in 71.26 in [facility] Patient Treatment Plan of Care Planned Activity Planned Date Details Description Data Source (s) bacitracin 500 UNIT/GM EX ointment 02/24/2020 12:00:00 AM [facility] pantoprazole 4 MG/ML Injectable Solution 02/24/2020 12:00:00 AM [facility] POLYETHYLENE GLYCOL 3350 142 MG/ML Oral Solution 02/24/2020 12:00:0 0 AM [facility] bacitracin 500 UNIT/GM EX ointment 02/24/2020 12:00:00 AM [facility] Acetaminophen 325 MG Oral Tablet 02/23/2020 12:00:00 AM [facility] sennosides, MCFP 8.6 MG Oral Tablet 02/23/2020 12:00:00 AM [facility] Heparin Sodium (Porcine) 5000 UNIT/ML Injection Soluti on 02/23/2020 12:00:00 AM [facility] Oxycodone Hydrochloride 5 MG Oral Tablet 02/23/2020 12:00:00 AM [facility] POLYETHYLENE GLYCOL 3350 142 MG/ML Oral Solution 02/21/2020 09:00:0 0 AM [facility] sennosides, MCFP 8.6 MG Oral Tablet 02/20/2020 10:57:21 AM [facility] Bisacodyl 10 MG Rectal Suppository 02/20/2020 10:57:21 AM [facility] propofol (DIPRIVAN) 1000 MG/100ML infusion 02/19/2020 08:55:16 AM [facility]
--- NOTE | 2020-09-11 05:36 | ECGEPIP ---
[facility] - ED Test Date: 2020-09-10 Pat Name: HERIBERTO LUBIN Department: Room: - Gender: Male Neurology Technologist: vannessa : 1985 Requested By: MARLEN OLSEN Order Number: [id number] Reading MD: Etienne Wellington Measurements Intervals [place] Rate: 68 P: 26 IL: 133 QRS: 61 QRSD: 100 T: 48 QT: 381 QTc: 406 Interpretive Statements SINUS RHYTHM SIMILAR TO 04/17/19 Electronically Signed on 09-11-2020 5:35:33 EST by Etienne Wellington
== END 2020-09-11 01:28 | disposition home or self-care (01) ==
LOC: M ED 21:16
DX: H81.10 Benign paroxysmal vertigo, unspecified ear (principal); F17.210 Nicotine dependence, cigarettes, uncomplicated

== ENCOUNTER 2021-01-21 22:38 | Emergency (ER) | payer BC ==
[~2021-01-21] VITALS: Ht 182.9 cm; Wt 90.9 kg
[~2021-01-21 22:38] MED LIST changes: -ACET-908 PO; +ACET-910 PO; -GNP8.6TA PO; +GNP8.6TA7 PO; +MECL-136 PO
--- NOTE | 2021-01-22 00:24 | REPVR ---
PROCEDURE INFORMATION: Exam: CT Head Without Contrast Exam date and time: 01/21/2021 11:36 PM Age: 35 years old Clinical indication: Injury or trauma; Fall; Concussion/head injury TECHNIQUE: Imaging protocol: Computed tomography of the head without contrast. Radiation optimization: All CT scans at this facility use at least one of these dose optimization techniques: automated exposure control; mA and/or kV adjustment per patient size (includes targeted exams where dose is matched to clinical indication); or iterative reconstruction. COMPARISON: CT Head without contrast 09/10/2020 11:33 PM FINDINGS: Brain: Normal. No hemorrhage. Unremarkable white matter. No mass effect. Cerebral ventricles: No ventriculomegaly. Paranasal sinuses: Minimal right maxillary sinus mucosal thickening. Mastoid air cells: Visualized mastoid air cells are well aerated. Bones/joints: Right temporoparietal craniotomy site which is unchanged. Soft tissues: Unremarkable. IMPRESSION: 1. There has been little change from 09/10/2020. No acute interval intracranial process is identified. 2. Minimal right maxillary sinus disease. 3. Right craniotomy site which is unchanged. Electronically signed by: Antwan Giraldo On 01/22/2021 00:24:55 AM
--- NOTE | 2021-01-22 00:29 | REPVR ---
PROCEDURE INFORMATION: Exam: CT Cervical Spine Without Contrast Exam date and time: 01/21/2021 11:36 PM Age: 35 years old Clinical indication: Neck pain; Additional info: Fall TECHNIQUE: Imaging protocol: Computed tomography images of the cervical spine without contrast. Radiation optimization: All CT scans at this facility use at least one of these dose optimization techniques: automated exposure control; mA and/or kV adjustment per patient size (includes targeted exams where dose is matched to clinical indication); or iterative reconstruction. COMPARISON: CT Spine,cervical w/o contrast 02/19/2020 12:24 AM FINDINGS: Bones/joints: No acute fracture. Normal alignment. Discs/Spinal canal/Neural foramina: No significant disc protrusion. No severe spinal canal stenosis. No significant neural foraminal narrowing. Lungs: Lung apices are normal. Soft tissues: Unremarkable. IMPRESSION: Negative CT cervical spine without change from 02/19/2020. No fracture or subluxation is evident and no spinal or foraminal stenosis. Electronically signed by: Antwan Giraldo On 01/22/2021 00:29:04 AM
[2021-01-22 01:23] VITALS: BP 110/70
== END 2021-01-22 01:32 | disposition home or self-care (01) ==
LOC: M ED 22:38
DX: R55 Syncope and collapse (principal); F10.229 Alcohol dependence with intoxication, unspecified; F17.210 Nicotine dependence, cigarettes, uncomplicated

== ENCOUNTER 2024-05-12 13:53 | Emergency (ER) | payer OTHER, BC ==
[~2024-05-12] VITALS: Ht 182.9 cm; Wt 103.5 kg
[~2024-05-12 13:53] MED LIST changes: -GNP8.6TA7 PO; +SENN-188 PO
[2024-05-12 15:56] VITALS: BP 128/80; TEMP 99.2; O2SAT 97
[2024-05-12] MEDS: LIDOCAINE 2% MDV 20ML VIAL SC ONE (17:00)
[2024-05-12] MEDS: CEPHALEXIN 500 MG CAP PO ONE (17:03)
[2024-05-12] MEDS: BOOSTRIX VACCINE (TETANUS/DIPHTH/ACEL. PERTUSSIS) 0.5ML SYR IM ONE (17:04)
[2024-05-12] MEDS ORDERED: CEPH500C PO (17:39)
== END 2024-05-12 17:53 | disposition home or self-care (01) ==
LOC: M ED 13:53
DX: S61.211A Laceration without foreign body of left index finger without damage to nail, initial encounter (principal); Y92.9 Unspecified place or not applicable; Y93.9 Activity, unspecified; Y99.0 Civilian activity done for income or pay; F17.210 Nicotine dependence, cigarettes, uncomplicated; Z79.2 Long term (current) use of antibiotics; Z23 Encounter for immunization

== ENCOUNTER 2024-06-16 21:25 | Emergency (ER) | payer BC, OTHER ==
[~2024-06-16] VITALS: Ht 182.9 cm; Wt 114.0 kg
[~2024-06-16 21:25] MED LIST changes: +CEPH500C PO
[2024-06-16 22:41] VITALS: BP 136/84; TEMP 98.6; O2SAT 98
== END 2024-06-16 22:46 | disposition home or self-care (01) ==
LOC: M ED 21:25 → EDBD 21:25 → M ED 22:46
DX: F10.120 Alcohol abuse with intoxication, uncomplicated (principal); S00.03XA Contusion of scalp, initial encounter; S06.300A Unspecified focal traumatic brain injury without loss of consciousness, initial encounter; Y92.410 Unspecified street and highway as the place of occurrence of the external cause; Y93.9 Activity, unspecified; Y99.9 Unspecified external cause status; K21.9 Gastro-esophageal reflux disease without esophagitis; Z79.2 Long term (current) use of antibiotics